=== PATIENT | male | born 1965 | race Caucasian/White ===

== ENCOUNTER 2020-06-25 15:40 | Observation (INO) ==
[2020-06-25] MEDS ORDERED: PIPERACILL/TAZOBAC CONSULT ACTIVE PRN ×2 (15:57→21:13)
[2020-06-25] MEDS ORDERED: VANCOMYCIN CONSULT ACTIVE PRN ×2 (15:57→21:13)
[2020-06-25] MEDS ORDERED: PIPERACILLIN/TAZOBACTAM 4.5 GM/120 ML BAG IV ONE (15:57)
[2020-06-25] MEDS ORDERED: VANCOMYCIN HCL 2,750 MG in SODIUM CHLORIDE 0.9% 500 ML IV ONE (15:57)
[2020-06-25] MEDS ORDERED: SODIUM CHLORIDE 0.9% 1000ML 1,000 ML IV SCH (16:00)
--- NOTE | 2020-06-25 16:02 | Emergency Department Note ---
Impression & Plan Cellulitis of left foot, Diabetes mellitus, Deformity of foot, KATALINA (acute kidney injury) ED Provider Note NAME: DENISSE ANDREWS AGE: 55 SEX: M : 1965 ARRIVES VIA: Walk-In INFORMANT: [Patient] ED PROVIDER(S): [Aramis Garnett MD] CHIEF COMPLAINT: Foot pain HISTORY OF PRESENT ILLNESS: The patient is a 55-year-old male who is diabetic. He has had a partial amputation of the left foot because of infection. The patient states that over the weekend, 5 days or so ago, he felt awful. He was chilled and his blood sugar was high. He was able to get his sugar under control and started to feel somewhat better. Over the last few days he has noticed that his left foot is more painful and he has noticed some redness and then he noticed a foul odor. Patient is on his feet quite a bit and as the day goes on, the pain gets worse, right now, lying still, the pain is minimal. The patient has had some chills, no fever. No cough or cold or congestion. No urinary complaints. No Covid exposures. He had 1 bout of vomiting over the weekend, none since. The patient is concerned he has infection again in his foot. REVIEW OF SYSTEMS: See HPI for pertinent positives and negatives. A total of ten systems were reviewed and were otherwise negative. PMHx/PSHx: See Below SOCIAL HISTORY: See Below. PHYSICAL EXAM: GENERAL: Patient is in no acute distress. HEENT: No acute trauma, normocephalic atraumatic, mucous membranes moist, no nasal congestion, no scleral icterus. NECK: No stridor, no adenopathy, no meningismus, trachea is midline. LUNGS: Clear to auscultation bilaterally, no wheeze, no rhonchi, breath sounds equal. HEART: Without murmurs gallops or rubs, regular rate and rhythm. ABDOMEN: Soft, nontender, bowel sounds positive, no hernias, no peritonitis. EXTREMITIES: No cyanosis. The patient does have left lower extremity edema. There is an amputation to the lateral aspect of his distal left foot. This has healed well. The patient has an open area to the underside of his medial left foot. There is a foul odor noted. There is some surrounding erythema. Some warmth is present at the area of erythema. A culture was obtained NEUROLOGIC: Oriented x 3, no acute motor or sensory deficits, no focal weakness. SKIN: No rash, no jaundice, no diaphoresis. DIFFERENTIAL DIAGNOSIS: Sepsis, UTI, pneumonia, osteomyelitis, cellulitis, gangrene, metabolic, electrolyte abnormalities, cardiac sources, intracerebral event, toxicologic, neurologic, as well as other pathologies. EMERGENCY DEPARTMENT COURSE/PROCEDURES: ECG: Indication was possible sepsis. The ECG shows a sinus rhythm with some PVCs. There is some baseline artifact. The rate is 71. The QTc is 469. There is no ST elevation. Continuous Cardiac Monitoring: An order was placed for continuous cardiac monitoring. The monitor shows a rate of 65 with sinus rhythm with some PVCs. MEDICAL DECISION MAKING: There is no leukocytosis. There is a mild anemia but this is baseline looking back at previous testing. There was a normal platelet count. No worrisome co agulopathy. There was some acute kidney injury with a creatinine of 1.47. Lactic acid level was not elevated making sepsis less likely. No concerning liver enzyme elevation. Procalcitonin level was not elevated. Covid testing returned negative. Chest x-ray did not show pneumonia or CHF. Left foot CT did show evidence for cellulitis, there was a Charcot neuropathy noted. There was no osteomyelitis. ECG showed a sinus rhythm with some PVCs, no acute ischemia. The patient presents with chills, left foot pain and redness. The left foot has a foul odor. Few days ago, he had a high blood sugar and an episode of vomiting. The patient has a left foot cellulitis. He is diabetic. There is an ulcer to the plantar aspect of the left foot and there is a very foul odor from this lesion. A culture was obtained and is pending. The patient is in need of a hospital stay. He did receive IV Zosyn and IV vancomycin. He was given IV saline. The patient is aware of his findings, he understands the need for hospital admission. I did speak with the patient and case management. The on-call hospitalist has been consulted. Past Med/Surg History Medical History History of anesthesia reaction difficulty waking Near sighted Sleep apnea had sx, no issues now Toe osteomyelitis, left Surgical History H/O sinus surgery History of amputation of toe History of tonsillectomy and adenoidectomy S/P unilateral inguinal hernia repair Family History Aunt Breast cancer Grandfather Diabetes CHF (congestive heart failure) Hyperglycemia Stroke Grandmother Lung cancer Uterine cancer Grandfather (Paternal) Family history of diabetes mellitus Other No family history of adverse response to anesthesia Social History Smoking Status: Never smoker Second Hand Exposure: Yes (father smoked); Hx Alcohol Use: Yes Alcohol type: beer Hx Substance Use: No Preferred Language: Russian Communication Ability: Effective Positive Printer Operator Required: No Beliefs That Will Affect Care: None Current Living Situation: Alone Feels Safe at Home: Yes Assistive Devices: Glasses Allergies Allergies Allergy/AdvReac Type Severity Reaction Status Date / Time No Known Allergies Allergy Unknown Verified 08/05/19 07:16 Home Meds Home Medications Medication Instructions Recorded Confirmed cyanocobalamin (vitamin B-12) 500 500 mcg PO QAM tab 01/22/19 08/05/19 mcg tablet Previous Rx's Medication Instructions Recorded pen needle, diabetic 31 gauge x #200 ea 01/24/1911/01" metformin 500 mg tablet 500 mg PO BID #180 tab 07/15/19 insulin lispro 100 unit/mL 5 units SQ .COMPLEX #15 ml 08/17/19 subcutaneous pen lisinopril 5 mg tablet 5 mg PO DAILY #90 tab 09/23/19 simvastatin 20 mg tablet 20 mg PO DAILY #90 tab 09/23/19 torsemide 20 mg tablet See Rx Instructions PO .COMPLEX 03/03/20 #90 tab blood sugar diagnostic See Rx Instructions .ROUTE 04/01/20 .COMPLEX #100 strip insulin glargine 100 unit/mL (3 30 unit SQ QAM #15 ml 06/04/20 mL) subcutaneous pen Results & Data (ED) Vital Signs Vital Signs - 24 hr 06/25/20 15:41 06/25/20 16:35 06/25/20 16:39 Temperature 36.5 C Temperature Source Skin Pulse Rate 81 Pulse Rate [Apical] 65 Respiratory Rate 19 18 Blood Pressure 138/75 Blood Pressure [Left Arm] 146/87 H Blood Pressure Mean 96 Blood Pressure Mean [Left Arm] 106 Pulse Oximetry 98 98 97 Oxygen Delivery Method Room Air Room Air Room Air Sepsis Recent Fever Within 48 Hours No Sepsis New/Unexplained Change in Mental Status N/A Sepsis Action Taken by Nursing No Action Required Home Medications Current Medication List: was personally reviewed by me Laboratory Data Attestation: I reviewed the patient's lab results. Result diagrams: 06/25/20 16:20 06/25/20 16:20 Lab Results 06/25/20 06/25/20 06/25/20 Range/Units 16:20 16:20 16:20 WBC 8.80 (4.8-10.8) K/uL RBC 4.15 L (4.7-6.1) M/uL Hgb 12.7 L (14.0-18.0) g/dL Hct 36.4 L (42-52) % MCV 87.7 (80-100) fL MCH 30.6 (25-34) pg MCHC 34.9 (32-36) g/dL RDW Std Deviation 41.6 (36.4-46.3) fL RDW Coeff of Sil 12.9 (11.5-14.5) % Plt Count 158 (130-400) K/uL MPV 12.6 H (7.4-10.4) fL Immature Gran % (Auto) 0.2 % Neut % (Auto) 67.1 % Lymph % (Auto) 23.9 % [place] % (Auto) 6.5 % Eos % (Auto) 1.7 % Baso % (Auto) 0.6 % Neut # (Auto) 5.91 (1.4-6.5) K/uL Lymph # (Auto) 2.10 (1.2-3.4) K/uL [place] # (Auto) 0.57 (0.11-0.59) K/uL Eos # (Auto) 0.15 (0-0.5) K/uL Baso # (Auto) 0.05 (0-0.2) K/uL Immature Gran # (Auto) 0.02 (0.00-0.02) K/uL PT 12.5 H (9.0-12.0) Seconds INR 1.2 H (0.9-1.1) APTT 26.8 (21.0-31.0) Seconds PTT Ratio 1.0 Sodium 137 (136-145) mmol/L Potassium 3.9 (3.5-5.1) mmol/L Chloride 105 (98-107) mmol/L Carbon Dioxide 26 (21-32) mmol/L Anion Gap 6.0 (3-11) BUN 30 H (7-18) mg/dl Creatinine 1.47 H (0.6-1.4) mg/dl Est Cr Clr Drug Dosing 82.2 ml/min Est GFR ( Amer) 62.2 Est GFR (Non-Af Amer) 53.7 BUN/Creatinine Ratio 20.5 H (10-20) Glucose 191 H (70-99) mg/dl Lactate (0.4-2.0) mmol/L Calcium 8.9 (8.5-10.1) mg/dl Magnesium 2.1 (1.8-2.4) mg/dl Total Bilirubin 0.8 (0.2-1) mg/dl AST 12 L (15-37) U/L ALT 31 (12-78) U/L Alkaline Phosphatase 102 (45-117) U/L Total Protein 7.2 (6.4-8.2) gm/dl Albumin 3.6 (3.4-5.0) gm/dl Globulin 3.6 (2.5-4.0) gm/dl Albumin/Globulin Ratio 1.0 (0.9-2) Procalcitonin (0-0.5) ng/ml SARS-CoV-2 Ag (Rapid) (Negative) 06/25/20 06/25/20 06/25/20 Range/Units 16:20 16:20 Unknown WBC (4.8-10.8) K/uL RBC (4.7-6.1) M/uL Hgb (14.0-18.0) g/dL Hct (42-52) % MCV (80-100) fL MCH (25-34) pg MCHC (32-36) g/dL RDW Std Deviation (36.4-46.3) fL RDW Coeff of Sil (11.5-14.5) % Plt Count (130-400) K/uL MPV (7.4-10.4) fL Immature Gran % (Auto) % Neut % (Auto) % Lymph % (Auto) % [place] % (Auto) % Eos % (Auto) % Baso % (Auto) % Neut # (Auto) (1.4-6.5) K/uL Lymph # (Auto) (1.2-3.4) K/uL [place] # (Auto) (0.11-0.59) K/uL Eos # (Auto) (0-0.5) K/uL Baso # (Auto) (0-0.2) K/uL Immature Gran # (Auto) (0.00-0.02) K/uL PT (9.0-12.0) Seconds INR (0.9-1.1) APTT (21.0-31.0) Seconds PTT Ratio Sodium (136-145) mmol/L Potassium (3.5-5.1) mmol/L Chloride (98-107) mmol/L Carbon Dioxide (21-32) mmol/L Anion Gap (3-11) BUN (7-18) mg/dl Creatinine (0.6-1.4) mg/dl Est Cr Clr Drug Dosing ml/min Est GFR ( Amer) Est GFR (Non-Af Amer) BUN/Creatinine Ratio (10-20) Glucose (70-99) mg/dl Lactate 1.1 (0.4-2.0) mmol/L Calcium (8.5-10.1) mg/dl Magnesium (1.8-2.4) mg/dl Total Bilirubin (0.2-1) mg/dl AST (15-37) U/L ALT (12-78) U/L Alkaline Phosphatase (45-117) U/L Total Protein (6.4-8.2) gm/dl Albumin (3.4-5.0) gm/dl Globulin (2.5-4.0) gm/dl Albumin/Globulin Ratio (0.9-2) Procalcitonin 0.14 (0-0.5) ng/ml SARS-CoV-2 Ag (Rapid) Negative (Negative) Administered Medications Vancomycin HCl 2,750 mg/ (Sodium Chloride) 555 mls @ 200 mls/hr IV NOW ONE Stop: 06/25/20 18:46 Last Admin: 06/25/20 17:23 Dose: 200 mls/hr Documented by: [id number] Discontinued Medications Sodium Chloride (Nss 1000ml) 1,000 mls @ 999 mls/hr IV .Q1H1M RADHA Stop: 06/25/20 17:00 Last Admin: 06/25/20 16:34 Dose: 999 mls/hr Documented by: [id number] Piperacillin Sod/Tazobactam Sod (Zosyn) 4.5 gm in 120 mls @ 240 mls/hr IV NOW ONE Stop: 06/25/20 16:26 Last Admin: 06/25/20 16:34 Dose: 240 mls/hr Documented by: [id number] Imaging Data Radiologist's Impression: XR chest 1V portable CLINICAL HISTORY: Stroke Like Symptoms COMPARISON STUDY: 05/12/2020 FINDINGS: The cardiac and mediastinal contours remain stable. There is no failure. There is no focal pulmonary consolidation. There are no pleural effusions. There is a reverse total left shoulder arthroplasty. There is a chronic right AC joint separation[ IMPRESSION: No active disease in the chest. CT foot LT wo con HISTORY: 55 years-old Male poss osteo chronic left foot pain with neuropathy. COMPARISON: Left foot radiographs 01/22/2013 TECHNIQUE: Multiple axial CT images of the left foot were obtained without the use of IV contrast. A dose lowering technique was used consistent with the principals of ALARA. FINDINGS: There is moderate diffuse subcutaneous edema of the ankle and foot. The mineralized appearance of the bones. Interval development of diffuse severe bony fragmentation/erosion of the midfoot with areas of mild associated subluxation. Moderate spurring of the calcaneus. Mild tibiotalar osteoarthritis. Additionally, there is severe joint space narrowing of the second MTP joint with corticated bone fragments and flattening of the second metatarsal head. Interval postoperative changes of resection of the fifth metatarsal head and fifth digit phalanges. No drainable fluid collection. The ligaments and tendons are not well evaluated by CT technique. Varicosities of the medial lower leg. There is diffuse atrophy of the intrinsic musculature. Soft tissue ulcer of the forefoot is noted within the medial midfoot. No definite evidence of acute osteomyelitis deep to the ulcer. IMPRESSION: 1. Interval development of bony fragmentation/erosions of the forefoot with subluxations suggestive of Charcot neuropathy. 2. Diffuse subcutaneous edema suggests cellulitis. There is a soft tissue ulcer of the medial forefoot. No abscess or evidence of acute osteomyelitis deep to the ulcer. 3. Interval amputation of the fifth metatarsal head and fifth digit phalanges. 4. 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 Discharge Plan Visit Data Chief Complaint: Foot Injury/Pain Stated Complaint: LEFT FOOT PAIN ED Provider: Aramis Garnett Discharge Problem: Cellulitis of left foot, Diabetes mellitus, Deformity of foot, KATALINA (acute kidney injury) Patient Disposition: Admitted As Inpatient Condition: Good Forms Stand Alone Forms: [facility] Prescriptions Prescriptions: No Action metformin 500 mg tablet 500 mg PO BID Qty: 180 RF: 3 insulin lispro [Humalog KwikPen Insulin] 100 unit/mL insulin pen 5 units SQ .COMPLEX Qty: 15 RF: 5 simvastatin 20 mg tablet 20 mg PO DAILY Qty: 90 RF: 3 lisinopril 5 mg tablet 5 mg PO DAILY Qty: 90 RF: 3 torsemide 20 mg tablet See Rx Instructions PO .COMPLEX Qty: 90 RF: 2 OneTouch Verio test strips Strip See Rx Instructions .ROUTE .COMPLEX Qty: 100 RF: 5 Lantus Solostar U-100 Insulin 100 unit/mL (3 mL) insulin pen 30 unit SQ QAM Qty: 15 RF: 3 cyanocobalamin (vitamin B-12) 500 mcg tablet 500 mcg PO QAM RF: 0 (DME) pen needle, diabetic [Sure-Fine Pen [place]] 31 gauge x 5/16" needle See Dose Instructions .ROUTE .MEDSUPPLY Qty: 200 RF: 5 Referrals Referrals: Rachel Calderón CRNP [Primary Care Provider] - Discharge Problem: Diabetes mellitus Qualifiers: Diabetes mellitus type: type 2 Diabetes mellitus intermodal dispatcher insulin use: with usp use Diabetes mellitus complication status: with skin complications Diabetes mellitus complication detail: with foot ulcer Qualified Code(s): E11.621 - Type 2 diabetes mellitus with foot ulcer Deformity of foot Qualifiers: Laterality: left Qualified Code(s): M21.962 - Unspecified acquired deformity of left lower leg
--- NOTE | 2020-06-25 16:32 | XRay Report ---
SINGLE VIEW CHEST CLINICAL HISTORY: Sepsis. FINDINGS: An AP, portable, upright chest radiograph is obtained. No prior studies are available for c omparison at the time of dictation. The heart is top normal for projection noting atherosclerotic ca lcification of the thoracic aorta. There is mild bibasilar atelectasis. No airspace consolidation or large pleural effusion is identified. No pneumothorax is seen. The bony thorax is grossly intact. IMPRESSION: No active disease in the chest. ACT 112: Negative or not required by law. Electronically signed by: Aramis Conklin M.D. 06/25/2020 4:30 PM
[2020-06-25 16:37] LABS: Basophils # (auto) 0.05 K/uL (0-0.2); Basophils % (auto) 0.6 %; Eosinophils # (auto) 0.15 K/uL (0-0.5); Eosinophils % (auto) 1.7 %; Hematocrit (blood only) 36.4 % (42-52); Hemoglobin 12.7 g/dL (14.0-18.0); Immature Granulocytes # (auto) 0.02 K/uL (0.00-0.02); Immature Granulocytes % (auto) 0.2 %; Lymphocytes % (auto) 23.9 %; Mean Corpuscular Hemoglobin 30.6 pg (25-34); Mean Corpuscular Hgb Conc 34.9 g/dL (32-36); Mean Corpuscular Volume 87.7 fL (80-100); Mean Platelet Volume 12.6 fL (7.4-10.4); Monocytes # (auto) 0.57 K/uL (0.11-0.59); Monocytes % (auto) 6.5 %; Neutrophils # (auto) 5.91 K/uL (1.4-6.5); Neutrophils % (auto) 67.1 %; Platelet Count 158 K/uL (130-400); RDW Coefficient of Variation 12.9 % (11.5-14.5); RDW Standard Deviation 41.6 fL (36.4-46.3); Red Blood Count 4.15 M/uL (4.7-6.1)
[2020-06-25 17:00] LABS: INR 1.2 (0.9-1.1); Partial Thromboplastin Time 26.8 Seconds (21.0-31.0); Prothrombin Time 12.5 Seconds (9.0-12.0)
[2020-06-25 17:12] LABS: Albumin Level 3.6 gm/dl (3.4-5.0); BUN Creatinine Ratio 20.5 (10-20); Calcium 8.9 mg/dl (8.5-10.1); Creatinine Clr Calc Pharmacy 82.2 ml/min; Est GFR (African American) 62.2; Est GFR (Non-African American) 53.7; Magnesium 2.1 mg/dl (1.8-2.4); Potassium 3.9 mmol/L (3.5-5.1)
[2020-06-25 17:15] LABS: Bilirubin,Total 0.8 mg/dl (0.2-1); Globulin 3.6 gm/dl (2.5-4.0); Total Protein 7.2 gm/dl (6.4-8.2)
--- NOTE | 2020-06-25 17:19 | CT Scan Report ---
CT foot LT wo con HISTORY: 55 years-old Male poss osteo chronic left foot pain with neuropathy. COMPARISON: Left foot radiographs 01/22/2013 TECHNIQUE: Multiple axial CT images of the left foot were obtained without the use of IV contrast. A dose lowering technique was used consistent with the principals of LULY. FINDINGS: There is moderate diffuse subcutaneous edema of the ankle and foot. The mineralized appearance of the bones. Interval development of diffuse severe bony fragmentation/erosion of the midfoot with areas o f mild associated subluxation. Moderate spurring of the calcaneus. Mild tibiotalar osteoarthritis. Ad ditionally, there is severe joint space narrowing of the second MTP joint with corticated bone fragme nts and flattening of the second metatarsal head. Interval postoperative changes of resection of the fifth metatarsal head and fifth digit phalanges. No drainable fluid collection. The ligaments and ten dons are not well evaluated by CT technique. Varicosities of the medial lower leg. There is diffuse a trophy of the intrinsic musculature. Soft tissue ulcer of the forefoot is noted within the medial mid foot. No definite evidence of acute osteomyelitis deep to the ulcer. IMPRESSION: 1. Interval development of bony fragmentation/erosions of the forefoot with subluxations suggestive o f Charcot neuropathy. 2. Diffuse subcutaneous edema suggests cellulitis. There is a soft tissue ulcer of the medial forefoo t. No abscess or evidence of acute osteomyelitis deep to the ulcer. 3. Interval amputation of the fifth metatarsal head and fifth digit phalanges. 4. Severe joint space narrowing of the second MTP joint with subchondral collapse/osteonecrosis of th e second metatarsal head, also new from 2013. ACT 112: Negative or not required by law. The above report was generated using voice recognition software. It may contain grammatical, syntax o r spelling errors. Electronically signed by: Tien Aparicio M.D. 06/25/2020 5:18 PM
--- NOTE | 2020-06-25 19:30 | History & Physical Report ---
Date of Service June 25, 2020 Assessment & Plan (1) Cellulitis of left foot: Patient is a 55 year old male with PMHx DM2, HLD, HTN, s/p partial L foot amputation that presented initially with concerns of 3-4 days of foul smelling odor, pain, redness, and drainage from his L foot. Cellulitis of L foot -Wound and Blood cultures taken in ED, pending -Started on IV Zosyn and Vanco, will continue until cultures return -Podiatry consult as patient will likely need further care upon discharge for his foot, has never seen a stone rigger -Consider Orthotics while inpatient for discharge Chronic Venous Stasis dermatitis of LLE -Recommended patient continue wearing compression stockings after infection relatively cleared -Has worn in past, but more recently since amputation has had difficulties putting them on -?use of assistance device for donning of compression stockings KATALINA -Creatinine slightly elevated at 1.47, base 1 -Will hold Lisinopril and Torsemide at this time -BP acceptable DM2 -Continue home Lantus -SSI -AM HgbA1c ordered HLD -Continue home Simvastatin HTN -Holding Lisinopril and Torsemide as above -BP acceptable at this time Dispo: Med/Surg FEN: DM2 diet DVT: SCDs Code: Full (2) Diabetes mellitus: (3) KATALINA (acute kidney injury): (4) Hyperlipidemia: (5) Hypertension: (6) Venous stasis dermatitis of left lower extremity: History of Present Illness Chief Complaint: L foot infection Primary Care Provider: AILEEN Ibrahim Patient is a 55 year old male with PMHx DM2, HLD, HTN, s/p partial L foot amputation that presented initially with concerns of 3-4 days of foul smelling odor, pain, redness, and drainage from his L foot. Patient notes that roughly 5 days ago he had significant chills and had noted that his sugars were uncontrolled. He states that roughly 3-4 days ago his L foot started to smell and became more red and tender to touch. He states that his foot has been hurting for "at least a month" now, but that the past few days had worsened and he was concerned for infection. Notes that his foot pain increases to an 8/10 at the end of a day, but currently is a 2/10 at rest. He states that the over all feeling of his feet is poor and that feeling doesn't improve until above the mid-rosales. Currently denies any fever, chills, SOB, chest pain, abdominal pain, nausea, vomiting, diarrhea. Med Hx: DM2, HLD, HTN Surg Hx: L foot partial amputation, L inguinal hernia repair, Adenoidectomy Social Hx: Does note use tobacco, alcohol, drugs Fam Hx: Grandfather DM, CHF, Stroke; Grandmother Lung and uterine cx Allergies Allergy/AdvReac Type Severity Reaction Status Date / Time No Known Allergies Allergy Unknown Verified 06/25/20 17:52 Home Medications Medication Instructions Recorded Confirmed Type cyanocobalamin (vitamin B-12) 500 500 mcg PO QAM tab 01/22/19 06/25/20 History mcg tablet pen needle, diabetic 31 gauge x #200 ea 01/24/19 06/25/20 Rx 5/16" metformin 500 mg tablet 500 mg PO BID #180 tab 07/15/19 06/25/20 Rx insulin lispro 100 unit/mL 5 units SQ .COMPLEX #15 ml 08/17/19 06/25/20 Rx subcutaneous pen lisinopril 5 mg tablet 5 mg PO DAILY #90 tab 09/23/19 06/25/20 Rx insulin glargine 100 unit/mL (3 30 unit SQ QAM #15 ml 06/04/20 06/25/20 Rx mL) subcutaneous pen simvastatin 20 mg PO QPM 06/25/20 06/25/20 History torsemide 20 mg PO DAILY 06/25/20 06/25/20 History Past Med/Surg History Medical History History of anesthesia reaction difficulty waking Near sighted Sleep apnea had sx, no issues now Toe osteomyelitis, left Surgical History H/O sinus surgery History of amputation of toe History of tonsillectomy and adenoidectomy S/P unilateral inguinal hernia repair Family History Aunt Breast cancer Grandfather Diabetes CHF (congestive heart failure) Hyperglycemia Stroke Grandmother Lung cancer Uterine cancer Grandfather (Paternal) Family history of diabetes mellitus Other No family history of adverse response to anesthesia Social History Smoking Status: Never smoker Second Hand Exposure: Yes (father smoked); Hx Alcohol Use: No Hx Substance Use: No Preferred Language: [place] Konger Communication Ability: Effective E Business Specialist Required: No Beliefs That Will Affect Care: None Current Living Situation: Alone Other Information That Helps Us Care for You: No Feels Safe at Home: Yes Safety Concerns: Feels Safe At This Time Assistive Devices: None Review of Systems Review of Systems: All systems reviewed & are unremarkable except as noted in Subjective Physical Exam Constitutional: well developed, well nourished and cooperative; no acute distress Eyes: PERRL, conjunctivae normal, anicteric sclerae ENMT: external ear and nose normal, oropharynx normal Neck: trachea midline, no thyromegaly Respiratory: normal respiratory effort; no cough Auscultation: lungs clear to auscultation bilaterally; no diminished lung sounds, no crackles, no rales an d no wheezes Cardiovascular: Rate/Rhythm: regular rate and regular rhythm Heart Sounds: normal S1 and normal S2; no murmur and no cardiac rub Vessels: no JVD Extremities: no calf tenderness and no edema Gastrointestinal (Abdomen): Inspection/Auscultation: abdomen normal to inspection and normal bowel sounds; abdomen not distended Percussion/Palpa tion: abdomen soft; abdomen nontender, no guarding and abdomen not rigid Musculoskeletal: Head/Neck/Chest: normocephalic and head atraumatic L LE with appreciated amputation of 5th digit. Venous stasis changes on LLE to below the knee. Erythema and warmth of the plantar aspect of the foot with ulcer without obvious discharge in the mid-foot. Skin: no rashes, warm and dry Neurologic: PERRL, EOMI, accommodation nl, no face palsy, no dysarthria Psychiatric: A+Ox3, euthymic affect Results & Data Results & Data ([facility]) Vital Signs (Past 12 Hours) Vital Signs Temp Pulse Pulse Resp BP BP Pulse Ox 06/25/20 18:12 63 20 134/76 99 06/25/20 16:39 65 18 146/87 H 97 06/25/20 16:35 98 06/25/20 15:41 36.5 C 81 19 138/75 98 Supervising Physician Co-Signing Physician Notes I personally saw and examined the patient. I verified all carrillo points and agree with Resident Physician Dr Alamo with the following exceptions and/or additions: 55 year old male with neuropathic pressure ulcer on plantar aspect of left foot. No fevers or chills. Progressive callus on medial aspect of plantar foot since his partial foot amputation 2 years ago. 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 1 day of drainage from this callus therefore decided to come to the ER. He does not routinely see a stone rigger. O/E nonseptic appearing, HS 1+2, no murmurs, Chest CTAB, Left leg edema 2+ to knee > right (pt reports chronic), Unstageable ulcer on medial plantar aspect of left foot with surrounding cellulitis warmth and swelling. A/P Cellulitis with unstageable diabetic/neuropathic ulcer - Continue vanc/zosyn pending wound and blood cultures. Consult podiatry. KATALINA - agree with holding diuretic and ACEi as above. Likely can restart ACEi if Cr improving in AM. 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
[2020-06-25] MEDS ORDERED: GLUCAGON FOR INJ 1 MG VIAL SQ PRN (21:13)
[2020-06-25] MEDS ORDERED: VANCOMYCIN HCL 2,000 MG in SODIUM CHLORIDE 0.9% 500 ML IV SCH (21:13)
[2020-06-25] MEDS ORDERED: GLUCOSE 40% GEL 15 GM TUBE PO PRN (21:13)
[2020-06-25] MEDS ORDERED: DEXTROSE 50% 50 ML SYRINGE IV PRN (21:13)
[2020-06-25] MEDS ORDERED: CARBOHYDRATES FOR HYPOGLYCEMIA PO PRN (21:13)
[2020-06-25] MEDS ORDERED: GLUCOSE 10 TABS/TUBE PO PRN (21:13)
[2020-06-25] MEDS: SIMVASTATIN 20 MG TAB PO SCH (21:48)
[2020-06-25] MEDS: INSULIN ASPART 100 UNITS/ML 3 ML PEN SC SCH (21:50)
[2020-06-25] MEDS: PIPERACILLIN/TAZOBACTAM 4.5 GM in DEXTROSE 5% 100 ML IV SCH (22:07)
[2020-06-25 22:44] LABS: C Reactive Protein 1.52 mg/dl (0-0.29)
[2020-06-26 00:50] LABS: Appearance Urine Cloudy (Clear); Bacteria Urine Automated Negative (Negative); Bilirubin Urine Negative (Negative); Blood Urine Negative (Negative); Cast Urine Automated 0 /lpf (0-5); Color Urine Yellow; Epithelial Cell Urine Auto 0-5 /lpf (0-5); Glucose Urine UA Trace (Negative); Ketones Urine Negative (Negative); Leukocyte Esterase Urine Negative (Negative); Nitrite Urine Negative (Negative); Protein Urine Negative (Negative); RBC Urine Automated 0-4 /hpf (0-4); Specific Gravity Urine 1.016 (1.000-1.030); Urobilinogen Urine Negative (Negative); WBC Urine Automated 0 /hpf (0-5)
[2020-06-26] MEDS: PIPERACILLIN/TAZOBACTAM 4.5 GM in DEXTROSE 5% 100 ML IV SCH ×3 (05:38→22:35)
[2020-06-26] MEDS ORDERED: VANCOMYCIN HCL 1,500 MG in SODIUM CHLORIDE 0.9% 500 ML IV SCH (06:00)
[2020-06-26 06:18] LABS: Basophils # (auto) 0.04 K/uL (0-0.2); Basophils % (auto) 0.6 %; Eosinophils # (auto) 0.17 K/uL (0-0.5); Eosinophils % (auto) 2.5 %; Hematocrit (blood only) 33.9 % (42-52); Hemoglobin 11.7 g/dL (14.0-18.0); Immature Granulocytes # (auto) 0.01 K/uL (0.00-0.02); Immature Granulocytes % (auto) 0.1 %; Lymphocytes % (auto) 26.7 %; Mean Corpuscular Hemoglobin 30.5 pg (25-34); Mean Corpuscular Hgb Conc 34.5 g/dL (32-36); Mean Corpuscular Volume 88.3 fL (80-100); Mean Platelet Volume 12.3 fL (7.4-10.4); Monocytes # (auto) 0.42 K/uL (0.11-0.59); Monocytes % (auto) 6.2 %; Neutrophils # (auto) 4.31 K/uL (1.4-6.5); Neutrophils % (auto) 63.9 %; Platelet Count 147 K/uL (130-400); Red Blood Count 3.84 M/uL (4.7-6.1); White Blood Count 6.75 K/uL (4.8-10.8)
--- NOTE | 2020-06-26 06:37 | XRay Report ---
XR foot LT min 3V routine HISTORY: 55 years-old Male left foot infection with diabetes diabetes. Chronic left foot pain COMPARISON: CT left foot of same day, left foot radiographs 01/23/2013 TECHNIQUE: 3 views of the left foot FINDINGS: Pes planus. Destruction of the midfoot is noted with sclerosis, bony fragmentation and mild multi art iculation subluxation. Interval partial amputation of the fifth digit at the level of the distal diap hyseal fifth metatarsal. There is cortical thickening throughout the second metatarsal. There is flat tening of the second metatarsal head with severe joint space narrowing at the second MTP joint. Mild diffuse soft tissue swelling. No acute fractures or definitive evidence of acute osteomyelitis. IMPRESSION: 1. Diffuse soft tissue prominence without acute fracture or definite evidence of acute osteomyelitis. 2. Charcot neuropathy. 3. Partial amputation of the fifth digit. 4. 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 ACT 112: Negative or not required by law. The above report was generated using voice recognition software. It may contain grammatical, syntax o r spelling errors. Electronically signed by: Tien Aparicio M.D. 06/26/2020 6:35 AM
[2020-06-26 06:53] LABS: BUN Creatinine Ratio 19.6 (10-20); Calcium 8.9 mg/dl (8.5-10.1); Creatinine Clr Calc Pharmacy 107.2 ml/min; Est GFR (African American) 85.5; Est GFR (Non-African American) 73.8; Potassium 4.4 mmol/L (3.5-5.1)
[2020-06-26 07:57] LABS: Estimated Average Glucose 169 mg/dl; Hemoglobin A1C 7.5 % (4.5-5.6)
[2020-06-26] MEDS: INSULIN ASPART 100 UNITS/ML 3 ML PEN SC SCH ×4 (08:55→21:44)
[2020-06-26] MEDS: INSULIN GLARGINE SOLOSTAR 100 UNITS/ML 3 ML PEN SQ SCH (08:55)
--- NOTE | 2020-06-26 09:01 | Podiatry Consultation ---
Date of Consultation June 26, 2020 Assessment & Plan (1) Cellulitis of left foot: Patient should f/u with me outpatient in the office and with the Diabetic foot clinic for custom diabetic shoes or PICAYUNE walker (2) Diabetes mellitus: Diabetes mellitus complication detail: with foot ulcer Diabetes mellitus complication status: with skin complications Diabetes mellitus long te rm insulin use: with prison use Diabetes mellitus type: type 2 Qualified Code(s): E11.621 - Type 2 diabetes mellitus with foot ulcer; L97.509 - Non- pressure chronic ulcer of other part of unspecified foot with unspecified severity; Z79.4 - care home (current) use of insulin (3) KATALINA (acute kidney injury): (4) Hyperlipidemia: (5) Hypertension: (6) Venous stasis dermatitis of left lower extremity: History of Present Illness Attending Physician: Maico Hoffman MD Patient is a very pleasant 55 year old male seen at bedside this morning for a consultation for his left foot. Patient has a history of diabetes, venous insufficiency, diabetic neuropathy and Charcot neuropathy of his left foot, underwent a left foot 5th toe amputation and left fifth metatarsal partial ray resection by another feed house supervisor in the [facility] area about 2 years ago. patient stated he was to have diabetic shoes made and never did, he is very interested in following up on the shoes. Patient has a well healed left foot incision along the dorsal lateral aspect of the left foot and leg. There is no opening or wound present, patient has a rocker bottom foot consistent with Charcot, there is a very small abrasion on the left foot, medial aspect of the plantar foot, this should be covered with Allevyn foam for protection. There is no opening to measure, there is some swelling of the left lower extremity/foot but this is likely consistent with his venous issues, the swelling should be controlled with compression hose if patient can tolerate this. Additionally, I discussed with patient the concept of Charcot neuropathy, we discussed that because he retains good blood flow to his left foot, and has neuropathy he is breaking his foot down to form the rocker bottom foot type he now has, I recommend for patient to be seen on the outpatient setting by the Diabetic foot clinic for custom diabetic shoes for his Charcot foot Patient otherwise is stable - no WBC, it seems that swelling of his legs is an issue that needs to be addressed with compression, additionally with Charcot feet there are 3 phases roughly that the Charcot foot will progress through that if not stabilized with a shoe or a PICAYUNE walker will worsen the foot - the 3 phases are an active phase of Charcot when the foot is red/hot/swollen the foot will then progress to a rebuilding phase then to a stable coalescence phase - it is possible 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 thank you for this consult - I will continue to follow this patient once he is d/c in my office Allergies Allergy/AdvReac Type Severity Reaction Status Date / Time No Known Allergies Allergy Unknown Verified 06/25/20 17:52 Home Medications Medication Instructions Recorded Confirmed Type cyanocobalamin (vitamin B-12) 500 500 mcg PO QAM tab 01/22/19 06/25/20 History mcg tablet pen needle, diabetic 31 gauge x #200 ea 01/24/19 06/25/20 Rx 5/16" metformin 500 mg tablet 500 mg PO BID #180 tab 07/15/19 06/25/20 Rx insulin lispro 100 unit/mL 5 units SQ .COMPLEX #15 ml 08/17/19 06/25/20 Rx subcutaneous pen lisinopril 5 mg tablet 5 mg PO DAILY #90 tab 09/23/19 06/25/20 Rx insulin glargine 100 unit/mL (3 30 unit SQ QAM #15 ml 06/04/20 06/25/20 Rx mL) subcutaneous pen simvastatin 20 mg PO QPM 06/25/20 06/25/20 History torsemide 20 mg PO DAILY 06/25/20 06/25/20 History Patient History Medical History History of anesthesia reaction difficulty waking Near sighted Sleep apnea had sx, no issues now Toe osteomyelitis, left Surgical History H/O sinus surgery History of amputation of toe History of tonsillectomy and adenoidectomy S/P unilateral inguinal hernia repair Family History Aunt Breast cancer Grandfather Diabetes CHF (congestive heart failure) Hyperglycemia Stroke Grandmother Lung cancer Uterine cancer Grandfather (Paternal) Family history of diabetes mellitus Other No family history of adverse response to anesthesia Social History Smoking Status: Never smoker Second Hand Exposure: Yes (father smoked); Hx Alcohol Use: No Hx Substance Use: No Preferred Language: [place] Islander Communication Ability: Effective Polysomnographic Technologist Required: No Beliefs That Will Affect Care: None Current Living Situation: Alone Other Information That Helps Us Care for You: No Feels Safe at Home: Yes Safety Concerns: Feels Safe At This Time Assistive Devices: None Physical Exam Skin: left foot with rocker bottom appearance, s/p left 5th toe and 5th partial ray resection area is well healed, there is prominent bone at the 1st TMT joint and increased pressure of the foot plantarly. No open or active drainaing ulcers, foto is consisten with diabetic charcot foot, with a history of venous insufficenicy swelling Results & Data ([facility]) Vital Signs (Past 12 Hours) Vital Signs Temp Pulse Pulse Resp BP Pulse Ox 06/26/20 07:41 36.6 C 72 16 157/83 H 94 06/25/20 23:08 36.3 C L 62 18 149/85 H 94 06/25/20 21:40 36 C L 59 L 18 159/80 H 96 06/25/20 21:15 36 C L 59 L 18 159/80 H 96
--- NOTE | 2020-06-26 10:27 | Billing Data ---
Date of Service June 25, 2020 Coding Level of Care Code 17187 Initial Inpt Care Lvl 2
--- NOTE | 2020-06-26 11:52 | Pharmacy Report ---
Pharmacy Abx Dose Short Note - Date of Service June 26, 2020 - Assessment & Plan Assessment 55 year old M with cellulitis of foot. He is type 2 diabetic. Foot xray showed no osteomyelitis, CT of foot suggestive of cellulitis. Patient is s/p partial L foot amputation. Blood cultures and foot cultures pending. Started on vancomycin/zosyn. Plan Vancomycin * Received loading dose of vancomycin 2750 mg last evening, started on vancomycin 1500 mg iv q 12 hrs * Scr improving more towards baseline from 1.47 to 1.13 mg/dL (crcl >100) / plan to increase vancomycin dosing to target level ~10-15 mcg/ml (goal for cellulitis) * Estimated kinetics: t1/2~8 hrs, ke~0.08, CrCl ~100 ml/min. * Will consider checking trough if vancomycin is to be continued >48 hrs Zosyn * 4.5 gm iv q 8 hr - appropriate for crcl >20 Pharmacy will continue to follow and will adjust dose/frequency as necessary. Thank you.
--- NOTE | 2020-06-26 11:54 | Electrocardiogram Report ---
Test Reason : Blood Pressure : / mmHG Vent. Rate : 071 BPM Atrial Rate : 071 BPM P-R Int : 150 ms QRS Dur : 100 ms QT Int : 432 ms P-R-T Axes : 040 028 061 degrees QTc Int : 469 ms Sinus rhythm with Premature ventricular complexes Otherwise normal ECG When compared with ECG of 25-NOV-2003 18:49, Premature ventricular complexes now present Confirmed by Dave Lyn ([id number]) on 06/26/2020 11:54:43 AM Referred By: Rachel Calderón Confirmed By:Dave Lyn
--- NOTE | 2020-06-26 14:42 | Hospitalist Progress Note ---
Date of Service June 26, 2020 Assessment & Plan (1) Cellulitis of left foot: Improving with antibiotic therapy. He has a Charcot foot and there is evidence of osteonecrosis on the CT scan. We will need to rule out osteomyelitis with MRI scan which is pending. Appreciate podiatry consultation and recommendations (2) Diabetes mellitus: Type II. ADA diet. Continue current medication management. Sliding scale coverage as needed (3) KATALINA (acute kidney injury): Creatinine is now at baseline. Lisinopril and torsemide are currently on hold. May be resumed at discharge Present on Admission?: Yes (4) Hyperlipidemia: Medical management (5) Hypertension: Medical management (6) Venous stasis dermatitis of left lower extremity: Chronic. Compression stockings and leg elevation recommended DVT prophylaxis: Heparin or Lovenox subcu Disposition: Possible discharge to home tomorrow on oral antibiotics if the left foot MRI scan is negative for osteomyelitis Admission and Anticipated Discharge Date Admission Date: June 25, 2020 Subjective Alert and oriented. No acute complaints. He feels as if his left foot cellulitis is improving. Creatinine is down to 1.1. Left foot CT scan results noted. There is evidence of osteonecrosis of the second MTP joint. Osteomyelitis will need to be ruled out. MRI scan has been ordered and is pending. Appreciate podiatry consultation. If MRI scan is negative for osteomyelitis, he possibly could go home tomorrow on oral antibiotics. Lisinopril and torsemide are on hold. Review of Systems Review of Systems: Constitutional-no fever or chills ENT-no blurred vision, no double vision, no epistaxis, no sore throat Respiratory-no cough, no wheezing, no shortness of breath Cardiac-no palpitations, no chest pain, no syncope GI-no nausea, vomiting, diarrhea, melena, hematochezia -no urinary retention, no urinary incontinence, no dysuria, no hematuria Musculoskeletal-previous amputation of left fifth toe and left fifth distal ray. Plantar medial forefoot callus and small ulcerated area with resolving surrounding cellulitis. No drainage Skin-no bruising, no rashes, no pruritus Neuro-no isolated weakness, no paresthesia, no weakness Psych-no depression, no anxiety Physical Exam Physical Exam: General-alert and oriented x3, no fevers, no chills HEENT-head atraumatic and normocephalic, TMs intact bilaterally, pupils equal and reactive to light, extraocular muscles intact Neck-no lymphadenopathy or thyromegaly, trachea midline Chest-clear to auscultation percussion. No rales wheezing or rhonchi Cardiac-regular rate and rhythm, normal S1 and S2, no murmurs Abdomen-normal bowel sounds, nontender, no hepatosplenomegaly Extremities-chronic venous stasis changes bilateral distal lower extremities. Previous amputation of left fifth toe and left distal fifth ray well-healed. Callus with small ulceration medial aspect left plantar forefoot area without drainage. Resolving surrounding cellulitis Neuro-cranial nerves II through XII intact, no focal deficits Psych-normal affect, normal mood Results & Data Results & Data ([facility]) Vital Signs (Past 12 Hours) Vital Signs Temp Pulse Resp BP Pulse Ox 06/26/20 07:41 36.6 C 72 16 157/83 H 94 Laboratory Results 06/26/20 05:58 06/26/20 05:58 PG Care Time/CCT Total # of Minutes Spent Total Time Spent with Patient: Total time spent is greater than 50% in coordination of care (as documented) at patient's floor/unit and/or counseling patient: Coding Level of Care Code 72138 Subseq Hosp Care Lvl 3 Diagnoses Cellulitis of left foot L03.116 Diabetes mellitus E11.621; L97.509; Z79.4 Diabetes mellitus complication detail: with foot ulcer Diabetes mellitus complication status: with skin complications 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: with tank terminal gauger use Diabetes mellitus type: type 2 KATALINA (acute kidney injury) N17.9 Hyperlipidemia E78.5 Hypertension I10 Venous stasis dermatitis of left lower extremity I87.2 (1) Diabetes mellitus Diabetes mellitus complication detail: with foot ulcer Diabetes mellitus complication status: with skin complications 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: with tank terminal gauger use Diabetes mellitus type: type 2 Qualified Code (s): E11.621 - Type 2 diabetes mellitus with foot ulcer; L97.509 - Non-pressure chronic ulcer of other part of unspecified foot with unspecified severity; Z79.4 - snf (current) use of insulin
[2020-06-26] MEDS ORDERED: ENOXAPARIN INJ 40 MG/0.4 ML SYR SQ ONE (15:00)
[2020-06-26] MEDS: VANCOMYCIN HCL 1,750 MG in SODIUM CHLORIDE 0.9% 500 ML IV SCH (17:36)
--- NOTE | 2020-06-26 20:00 | XRay Report ---
ORBIT RADIOGRAPHS 3 VIEWS HISTORY: pre-MRI screening. COMPARISON: None. FINDINGS: There are no radiopaque foreign bodies identified within the orbits. There is a right maxil tangela sinus polyp/retention cyst. IMPRESSION: No radiopaque foreign bodies identified within the orbits. ACT 112: Negative or not required by law. Electronically signed by: Cuco Raymundo M.D. 06/26/2020 7:58 PM
[2020-06-26] MEDS: SIMVASTATIN 20 MG TAB PO SCH (21:43)
[2020-06-27] MEDS ORDERED: VANCOMYCIN TROUGH ONE (05:30)
[2020-06-27] MEDS: VANCOMYCIN HCL 1,750 MG in SODIUM CHLORIDE 0.9% 500 ML IV SCH (06:25)
[2020-06-27] MEDS: PIPERACILLIN/TAZOBACTAM 4.5 GM in DEXTROSE 5% 100 ML IV SCH (06:25)
[2020-06-27] MEDS: INSULIN ASPART 100 UNITS/ML 3 ML PEN SC SCH ×2 (08:26→12:31)
[2020-06-27] MEDS: INSULIN GLARGINE SOLOSTAR 100 UNITS/ML 3 ML PEN SQ SCH (08:27)
[2020-06-27 08:35] LABS: Basophils # (auto) 0.05 K/uL (0-0.2); Basophils % (auto) 0.7 %; Eosinophils # (auto) 0.25 K/uL (0-0.5); Eosinophils % (auto) 3.5 %; Hematocrit (blood only) 35.2 % (42-52); Hemoglobin 11.6 g/dL (14.0-18.0); Immature Granulocytes # (auto) 0.02 K/uL (0.00-0.02); Immature Granulocytes % (auto) 0.3 %; Lymphocytes # (auto) 1.95 K/uL (1.2-3.4); Lymphocytes % (auto) 27.5 %; Mean Corpuscular Hemoglobin 29.6 pg (25-34); Mean Corpuscular Volume 89.8 fL (80-100); Mean Platelet Volume 12.1 fL (7.4-10.4); Monocytes # (auto) 0.36 K/uL (0.11-0.59); Monocytes % (auto) 5.1 %; Neutrophils # (auto) 4.47 K/uL (1.4-6.5); Neutrophils % (auto) 62.9 %; Platelet Count 171 K/uL (130-400); RDW Coefficient of Variation 12.9 % (11.5-14.5); Red Blood Count 3.92 M/uL (4.7-6.1)
--- NOTE | 2020-06-27 08:52 | Magnetic Resonance Report ---
MR foot LT w/o con HISTORY: 55 years-old Male cellulitis, charcot foot, rule out osteomyelitis chronic left-sided foot pain with cellulitis and possible osteomyelitis. Charcot neuropathy. COMPARISON: Acute left foot 06/25/2020, left foot radiographs 01/23/2013 TECHNIQUE: Multiplanar multisequence MRI of the left foot was obtained without the use of IV contrast . FINDINGS: There is moderate diffuse subcutaneous edema of the ankle and foot. Diffuse severe bony fragmentation with erosions of the midfoot with areas of mild associated subluxation redemonstrated. Diffuse marro w edema is likely related to the Charcot neuropathy. Small joint effusions are noted throughout. Mode rate spurring of the calcaneus. Mild tibiotalar osteoarthritis. Additionally, there is severe joint s pace narrowing of the second MTP joint with corticated bone fragments and flattening of the second me tatarsal head. Postoperative changes of resection of the fifth metatarsal head and fifth digit phalan ges. No drainable fluid collection. Varicosities of the medial lower leg. There is diffuse atrophy of the intrinsic musculature with diff use deep tissue and intramuscular edema. Soft tissue ulcer of the forefoot is noted within the medial midfoot measuring approximately 2.3 x 1.9 cm. No definite evidence of acute osteomyelitis deep to th e ulcer. IMPRESSION: 1. Diffuse marrow edema throughout the midfoot and forefoot is likely secondary to the advanced Charc ot neuropathy changes. 2. No definite evidence of acute osteomyelitis. 3. Diffuse cellulitis of the foot with soft tissue ulcer of the medial forefoot/midfoot distribution. No drainable fluid collection. 4. Chronic denervation changes. 5. Osteonecrosis of the second metatarsal head. 6. Fifth digit amputation at the level of the metatarsal head. ACT 112: Negative or not required by law. The above report was generated using voice recognition software. It may contain grammatical, syntax o r spelling errors. Electronically signed by: Tien Aparicio M.D. 06/27/2020 8:51 AM
[2020-06-27] MEDS ORDERED: ENOXAPARIN INJ 40 MG/0.4 ML SYR SQ SCH (09:00)
[2020-06-27 09:10] LABS: BUN Creatinine Ratio 13.8 (10-20); Calcium 9.1 mg/dl (8.5-10.1); Creatinine Clr Calc Pharmacy 103.5 ml/min; Est GFR (Non-African American) 70.8; Potassium 4.4 mmol/L (3.5-5.1)
--- NOTE | 2020-06-27 13:47 | Discharge Summary ---
Date of Service June 27, 2020 Admission HPI Per Admitting Provider Patient is a 55 year old male with PMHx DM2, HLD, HTN, s/p partial L foot amputation that presented initially with concerns of 3-4 days of foul smelling odor, pain, redness, and drainage from his L foot. Patient notes that roughly 5 days ago he had significant chills and had noted that his sugars were uncontrolled. He states that roughly 3-4 days ago his L foot started to smell and became more red and tender to touch. He states that his foot has been hurting for "at least a month" now, but that the past few days had worsened and he was concerned for infection. Notes that his foot pain increases to an 8/10 at the end of a day, but currently is a 2/10 at rest. He states that the over all feeling of his feet is poor and that feeling doesn't improve until above the mid-rosales. Currently denies any fever, chills, SOB, chest pain, abdominal pain, nausea, vomiting, diarrhea. Med Hx: DM2, HLD, HTN Surg Hx: L foot partial amputation, L inguinal hernia repair, Adenoidectomy Social Hx: Does note use tobacco, alcohol, drugs Fam Hx: Grandfather DM, CHF, Stroke; Grandmother Lung and uterine cx Admission Exam Per Admitting Provider Constitutional: well developed, well nourished and cooperative; no acute distress Eyes: PERRL, conjunctivae normal, anicteric sclerae ENMT: external ear and nose normal, oropharynx normal Neck: trachea midline, no thyromegaly Respiratory: normal respiratory effort; no cough Auscultation: lungs clear to auscultation bilaterally; no diminished lung sounds, no crackles, no rales and no wheezes Cardiovascular: Rate/Rhythm: regular rate and regular rhythm Heart Sounds: normal S1 and normal S2; no murmur and no cardiac rub Vessels: no JVD Extremities: no calf tenderness and no edema Gastrointestinal (Abdomen): Inspection/Auscultation: abdomen normal to inspection and normal bowel sounds; abdomen not distended Percussion/Palpation: abdomen soft; abdomen nontender, no guarding and abdomen not rigid Musculoskeletal: Head/Neck/Chest: normocephalic and head atraumatic L LE with appreciated amputation of 5th digit. Venous stasis changes on LLE to below the knee. Erythema and warmth of the plantar aspect of the foot with ulcer without obvious discharge in the mid-foot. Skin: no rashes, warm and dry Neurologic: PERRL, EOMI, accommodation nl, no face palsy, no dysarthria Psychiatric: A+Ox3, euthymic affect Principal Diagnosis Cellulitis of the Left Foot Discharge Exam Constitutional WD/WN, vitals as above Respiratory normal respiratory effort, lungs clear to auscultation Cardiovascular RRR, no murmur, no edema Musculoskeletal Left foot with prominent 1st TMT joint Callous present with no erythema, edema or drainage Skin no rashes, warm and dry Discharge Data Allergies Allergy/AdvReac Type Severity Reaction Status Date / Time No Known Allergies Allergy Unknown Verified 06/25/20 17:52 Consultations 06/25/20 17:36 ED Decision to Admit Stat 06/25/20 21:32 Consult Podiatry Routine Ordered Studies Laboratory Results - last 24 hr 06/26/20 06/26/20 06/27/20 17:04 21:25 07:24 WBC RBC Hgb Hct MCV MCH MCHC RDW Std Deviation RDW Coeff of Sil Plt Count MPV Immature Gran % (Auto) Neut % (Auto) Lymph % (Auto) [place] % (Auto) Eos % (Auto) Baso % (Auto) Neut # (Auto) Lymph # (Auto) [place] # (Auto) Eos # (Auto) Baso # (Auto) Immature Gran # (Auto) Sodium Potassium Chloride Carbon Dioxide Anion Gap BUN Creatinine Est Cr Clr Drug Dosing Est GFR ( Amer) Est GFR (Non-Af Amer) BUN/Creatinine Ratio Glucose POC Glucose 115 H 126 H 121 H Calcium 06/27/20 06/27/20 06/27/20 07:46 07:46 08:23 WBC 7.10 RBC 3.92 L Hgb 11.6 L Hct 35.2 L MCV 89.8 MCH 29.6 MCHC 33.0 RDW Std Deviation 42.0 RDW Coeff of Sil 12.9 Plt Count 171 MPV 12.1 H Immature Gran % (Auto) 0.3 Neut % (Auto) 62.9 Lymph % (Auto) 27.5 [place] % (Auto) 5.1 Eos % (Auto) 3.5 Baso % (Auto) 0.7 Neut # (Auto) 4.47 Lymph # (Auto) 1.95 [place] # (Auto) 0.36 Eos # (Auto) 0.25 Baso # (Auto) 0.05 Immature Gran # (Auto) 0.02 Sodium 142 Potassium 4.4 Chloride 113 H Carbon Dioxide 23 Anion Gap 6.0 BUN 16 Creatinine 1.17 Est Cr Clr Drug Dosing 103.5 Est GFR ( Amer) 82.0 Est GFR (Non-Af Amer) 70.8 BUN/Creatinine Ratio 13.8 Glucose 109 H POC Glucose 120 H Calcium 9.1 06/27/20 12:09 WBC RBC Hgb Hct MCV MCH MCHC RDW Std Deviation RDW Coeff of Sil Plt Count MPV Immature Gran % (Auto) Neut % (Auto) Lymph % (Auto) [place] % (Auto) Eos % (Auto) Baso % (Auto) Neut # (Auto) Lymph # (Auto) [place] # (Auto) Eos # (Auto) Baso # (Auto) Immature Gran # (Auto) Sodium Potassium Chloride Carbon Dioxide Anion Gap BUN Creatinine Est Cr Clr Drug Dosing Est GFR ( Amer) Est GFR (Non-Af Amer) BUN/Creatinine Ratio Glucose POC Glucose [address] foot LT wo con HISTORY: 55 years-old Male poss osteo chronic left foot pain with neuropathy. COMPARISON: Left foot radiographs 01/22/2013 TECHNIQUE: Multiple axial CT images of the left foot were obtained without the use of IV contrast. A dose lowering technique was used consistent with the principals of LULY. FINDINGS: There is moderate diffuse subcutaneous edema of the ankle and foot. The mineralized appearance of the bones. Interval development of diffuse severe bony fragmentation/erosion of the midfoot with areas of mild associated subluxation. Moderate spurring of the calcaneus. Mild tibiotalar osteoarthritis. Additionally, there is severe joint space narrowing of the second MTP joint with corticated bone fragments and flattening of the second metatarsal head. Interval postoperative changes of resection of the fifth metatarsal head and fifth digit phalanges. No drainable fluid collection. The ligaments and tendons are not well evaluated by CT technique. Varicosities of the medial lower leg. There is diffuse atrophy of the intrinsic musculature. Soft tissue ulcer of the forefoot is noted within the medial midfoot. No definite evidence of acute osteomyelitis deep to the ulcer. IMPRESSION: 1. Interval development of bony fragmentation/erosions of the forefoot with subluxations suggestive of Charcot neuropathy. 2. Diffuse subcutaneous edema suggests cellulitis. There is a soft tissue ulcer of the medial forefoot. No abscess or evidence of acute osteomyelitis deep to the ulcer. 3. Interval amputation of the fifth metatarsal head and fifth digit phalanges. 4. Severe joint space narrowing of the second MTP joint with subchondral collapse/osteonecrosis of the second metatarsal head, also new from 2012 HISTORY: 55 years-old Male left foot infection with diabetes diabetes. Chronic left foot pain COMPARISON: CT left foot of same day, left foot radiographs 01/23/2013 TECHNIQUE: 3 views of the left foot FINDINGS: Pes planus. Destruction of the midfoot is noted with sclerosis, bony fragmentation and mild multi articulation subluxation. Interval partial amputation of the fifth digit at the level of the distal diaphyseal fifth metatarsal. There is cortical thickening throughout the second metatarsal. There is flattening of the second metatarsal head with severe joint space narrowing at the second MTP joint. Mild diffuse soft tissue swelling. No acute fractures or definitive evidence of acute osteomyelitis. IMPRESSION: 1. Diffuse soft tissue prominence without acute fracture or definite evidence of acute osteomyelitis. 2. Charcot neuropathy. 3. Partial amputation of the fifth digit. 4. Severe joint space narrowing of the second MTP joint with suggested osteon ecrosis of the second metatarsal head. 06/26/20 14:15 MR foot LT w/o con Urgent [facility], [id number] Magnetic Resonance Report Patient: DENISSE ANDREWSAdmit Date: 06/25/20#: [id number]: [address] [place] [address] ID:[id number]: Date: 1965[facility] Zip: [place], [place] [address]Tpv: 55Location: 3NSex: MRoom/Bed: [id number] Phy: Juan Antonio Craig, CASTROiagnosis: L FOOT CELLULITISPri Phy: Rachel Calderón CRNPService Date: 06/26/20Fa Phy:Interpreting Phy: Ananda AparicioAdmit Phy: Beau Alamo DO Ordering Phy: Maico Hoffman MD cc: ~ MR foot LT w/o con HISTORY: 55 years-old Male cellulitis, charcot foot, rule out osteomyelitis chronic left-sided foot pain with cellulitis and possible osteomyelitis. Charcot neuropathy. COMPARISON: Acute left foot 06/25/2020, left foot radiographs 01/23/2013 TECHNIQUE: Multiplanar multisequence MRI of the left foot was obtained without the use of IV contrast. FINDINGS: There is moderate diffuse subcutaneous edema of the ankle and foot. Diffuse severe bony fragmentation with erosions of the midfoot with areas of mild associated subluxation redemonstrated. Diffuse marrow edema is likely related to the Charcot neuropathy. Small joint effusions are noted throughout. Moderate spurring of the calcaneus. Mild tibiotalar osteoarthritis. Additionally, there is severe joint space narrowing of the second MTP joint with corticated bone fragments and flattening of the second metatarsal head. Postoperative changes of resection of the fifth metatarsal head and fifth digit phalanges. No drainable fluid collection. Varicosities of the medial lower leg. There is diffuse atrophy of the intrinsic musculature with diffuse deep tissue and intramuscular edema. Soft tissue ulcer of the forefoot is noted within the medial midfoot measuring approximately 2.3 x 1.9 cm. No definite evidence of acute osteomyelitis deep to the ulcer. IMPRESSION: 1. Diffuse marrow edema throughout the midfoot and forefoot is likely secondary to the advanced Charcot neuropathy changes. 2. No definite evidence of acute osteomyelitis. 3. Diffuse cellulitis of the foot with soft tissue ulcer of the medial forefoot/midfoot distribution. No drainable fluid collection. 4. Chronic denervation changes. 5. Osteonecrosis of the second metatarsal head. Hospital Course (1) Cellulitis of left foot: Left foot cellulitis and wound have responded well to IV Antibiotics. treatment with Zosyn for 2 days and will need to continue Amoxicillin 500mg po TID for a total of 10 days. Pain has resolved.Cellulitis and edema have resolved. Patient is able to ambulate with no concerns at this time. Group B strep was seen on Wound Cx, therefore completion of Antibiotics and close follow up in Primary Care. (2) Deformity of foot: Specialty Consultation with Podiatry. Planned follow up in the Diabetic foot clinic for custom diabetic shoes or [facility]OSH[facility] Walker. Important the patient follow up to help further worsening of his Charcot foot. (3) Diabetes mellitus: Continue with Diabet Diet Weight Loss and activity as tolerated. Continue current outpatient medications with follow up with PCP (4) Hyperlipidemia: No changes with hospital admission, continue current outpatient medications (5) Hypertension: No changes with hospital admission, continue current outpatient me dications (6) KATALINA (acute kidney injury): Creatinine is now at baseline. Lisinopril and torsemide are currently on hold. 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 Elevate legs to reduce swelling when resting. Total Time Total Time Spent Total Time Spent (In Minutes): 35 Total Time Includes: Examination of the Patient, Discharge Planning and Medication Reconciliation Discharge Plan Discharge Items Patient Disposition: Home - Self-Care Reason For Visit: L FOOT CELLULITIS Discharge Diagnosis: Left Foot Cellulitis Condition on Discharge: Good Activity: Per Instructions section Activity Comment: resume Normal Activities starting Monday07/02/20. RTW 07/02/20. Lifting: Gradually increase as tolerated Bathing: No limitations Sexual Activity: When tolerated Exercise/Sports: None Driving/Machine Use: No limitations Weightbearing: Full weightbearing Non-emergency contact: Primary Care Provider and Specialist Call non-emergency contact if: you have any medication questions, your symptoms worsen, your pain is not controlled, your pain is worsening, your pain is unusual for you, your pain is concerning for you, you have a fever, your temperature is above 101, your wound has increased redness, your wound has increased drainage and your wound pain has increased Follow-up/Referrals: Rachel Calderón CRNP [Primary Care Provider] - Elba Fiore DPM [Physician] - (2 weeks) Diet: Carb Consistent or DM2 Addtl Attending Provider Instructions: Left foot cellulitis and wound have responded well to IV Antibiotics. Transition to Amoxicillin 500mg po TID for a total of 8 additional days. Return to work as discussed. Important to follow up with your PCP for recheck of your foot wound. Encourage follow up with Diabetic Podiatry Clinic, you should be contacted for a future appointment. Continue activity as tolerated and weight loss to help prevention. Pending Studies at Discharge: Yes Studies:: Wound Specimen only Preliminary Results Stand-Alone Forms: My Studio[employer], Smoking Cessation Medications and DC Order Prescriptions: New amoxicillin 500 mg capsule 500 mg PO TID Qty: 24 RF: 0 Continued metformin 500 mg tablet 500 mg PO BID Qty: 180 RF: 3 insulin lispro [Humalog KwikPen Insulin] 100 unit/mL insulin pen 5 units SQ .COMPLEX Qty: 15 RF: 5 lisinopril 5 mg tablet 5 mg PO DAILY Qty: 90 RF: 3 Lantus Solostar U-100 Insulin 100 unit/mL (3 mL) insulin pen 30 unit SQ QAM Qty: 15 RF: 3 cyanocobalamin (vitamin B-12) 500 mcg tablet 500 mcg PO QAM RF: 0 (DME) pen needle, diabetic [Sure-Fine Pen [place]] 31 gauge x 5/16" needle See Dose Instructions .ROUTE .MEDSUPPLY Qty: 200 RF: 5 torsemide 20 mg tablet 20 mg PO DAILY RF: 0 simvastatin 20 mg tablet 20 mg PO QPM RF: 0 Discharge Orders: Discharge Order (Routine); Ordered 06/27/20 Ordered By: Juan Antonio Morales/Other Patient Handouts: Managing Type 2 Diabetes Admission Data Admit Date/Time: 06/25/20 19:29 Attending Provider: Juan Antonio Craig Admit Provider: Beau Alamo Primary Care Provider: Rachel Calderón Other Providers: Oumar Aguilar ; Elba Fiore Other Interventions: Discharge Summary Assessment (RN) Last Done: 06/27/20 14:56 Coding Level of Care Code D/C Day Management >30 mins Diagnoses Cellulitis of left foot L03.116 Deformity of foot M21.962 Laterality: left Diabetes mellitus E11.621; L97.509; Z79.4 Diabetes mellitus complication detail: with foot ulcer Diabetes mellitus complication status: with skin complications 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
== END 2020-06-27 15:12 | disposition home or self-care (01) ==
LOC: ED 15:40 → SUATTDRO 19:29 → 3N 19:29 → INTOOBSV 19:29 → 3N 20:40

== ENCOUNTER 2023-11-10 12:18 | Inpatient (IN) ==
[2023-11-10] MEDS: SODIUM CHLORIDE 0.9% 1,000 ML IV SCH (13:20)
--- NOTE | 2023-11-10 13:24 | XRay Report ---
XR chest 1V portable HISTORY: 58 years-old Male Sepsis COMPARISON: 06/25/2020 TECHNIQUE: AP view the chest FINDINGS: Cardiac silhouette is enlarged. No pneumothorax, pleural effusion or airspace consolidation. Spondylo tic spurring of the spine. IMPRESSION: No acute process. ACT 112: Negative or not required by law. The above report was generated using voice recognition software. It may contain grammatical, syntax o r spelling errors. Electronically signed by: Ananda Aparicio M.D. 11/10/2023 1:23 PM
--- NOTE | 2023-11-10 13:43 | XRay Report ---
XR foot RT min 3V routine CLINICAL HISTORY: concern for osteomyelitis from wound care TECHNIQUE: 3 views of the right foot were obtained. Comparison: Comparison is made to right foot radiograph 08/11/2023 FINDINGS: No fractures are present. Joint space narrowing and osteophyte formation is most prominent at the mid foot. Osteonecrosis of the second metatarsal head is again seen. No soft tissue abnormality is seen. IMPRESSION: Redemonstration of changes of Charcot joint. Superimposed osteomyelitis is difficult to exclude altho ugh no definite erosions are seen on this exam. If there is concern for osteomyelitis, MRI is a more sensitive modality. ACT 112: Negative or not required by law. Electronically signed by: Jeb Vuong M.D. 11/10/2023 1:41 PM
[2023-11-10 13:47] LABS: Basophils # (auto) 0.04 K/uL (0.00-0.20); Basophils % (auto) 0.3 %; Eosinophils # (auto) 0.01 K/uL (0.00-0.50); Eosinophils % (auto) 0.1 %; Hematocrit (blood only) 37.7 % (42.0-52.0); Hemoglobin 12.5 g/dl (14.0-18.0); Immature Granulocytes # (auto) 0.07 K/uL (0.01-0.20); Immature Granulocytes % (auto) 0.5 %; Lymphocytes # (auto) 0.37 K/uL (1.20-3.40); Lymphocytes % (auto) 2.8 %; Mean Corpuscular Hemoglobin 29.1 pg (25.0-34.0); Mean Corpuscular Hgb Conc 33.2 g/dL (32.0-36.0); Mean Corpuscular Volume 87.7 fL (80.0-100.0); Mean Platelet Volume 12.5 fL (9.4-12.4); Monocytes # (auto) 0.82 K/uL (0.11-0.59); Monocytes % (auto) 6.3 %; Neutrophils # (auto) 11.76 K/uL (1.40-6.50); Platelet Count 167 K/uL (130-400); RDW Coefficient of Variation 13.2 % (11.5-14.5); RDW Standard Deviation 42.4 fL (36.4-46.3); White Blood Count 13.07 K/ul (4.8-10.8)
[2023-11-10 14:03] LABS: Alanine Aminotransferase 33 U/L (7-52); Albumin Level 3.5 gm/dl (3.4-5.0); Alkaline Phosphatase 72 U/L (34-104); Anion Gap 9 (3-11); Aspartate Aminotransferase 29 U/L (13-39); BUN Creatinine Ratio 18.3 (10-20); Bilirubin Direct 0.7 mg/dl (0-0.2); Bilirubin,Total 1.7 mg/dl (0.2-1.0); Blood Urea Nitrogen 21 mg/dl (6-23); Calcium 9.1 mg/dl (8.6-10.3); Carbon Dioxide 23 mmol/L (21-32); Chloride 104 mmol/L (98-107); Est GFR (Non-African American) 70.7 ml/min; Glucose 106 mg/dl (70-99(Fasting)); Magnesium 1.7 mg/dl (1.7-2.4); Potassium 3.8 mmol/L (3.5-5.1); Sodium 136 mmol/L (136-145); Total Protein 6.7 gm/dl (6.0-8.3)
--- NOTE | 2023-11-10 14:04 | XRay Report ---
LEFT FOOT 3 VIEWS CLINICAL HISTORY: Diabetic foot ulcer. Infection. FINDINGS: 3 portable views of the left foot are compared to study dated 11/09/2023. The skeletal struc tures are osteopenic. There is postsurgical change from amputation of the fifth toe through the fifth metatarsal shaft. This is similar to previous. No acute fracture is identified. There is no erosive change to suggest osteomyelitis. Severe arthritic change is noted throughout the foot with a rocker-b ottom deformity. Bony sclerosis and overgrowth is seen throughout the midfoot, and this is consistent with a Charcot foot. There is evidence of chronic Lisfranc injury with offset at the second tarsomet atarsal joint and widening between the base of the first and second metatarsals. Degenerative change and flattening within the second metatarsal head is similar to previous and suggests Freiberg's Infra ction. There is subluxation at the third DIP. A large plantar heel spur is noted, and there is degene rative spurring along the dorsal aspect of the tarsal bones. Soft tissue edema is present throughout the foot. An ulceration is suggested on the plantar aspect of the midfoot. No radiodense foreign body is identified. IMPRESSION: 1. Osteopenia with chronic degenerative and postsurgical changes as above. The appearance is consiste nt with a Charcot foot. 2. Soft tissue edema is seen throughout the foot with a plantar foot ulcer. Electronically signed by: Aramis Conklin M.D. 11/10/2023 2:02 PM
[2023-11-10 14:09] LABS: Troponin I High Sensitivity 7.5 pg/ml (0-20)
[2023-11-10] MEDS ORDERED: VANCOMYCIN CONSULT ACTIVE PRN (14:16)
[2023-11-10 14:21] LABS: INR 1.3 (0.9-1.1); Partial Thromboplastin Time 27 Seconds (21-31); Prothrombin Time 13.5 Seconds (9.0-12.0)
[2023-11-10] MEDS: VANCOMYCIN HCL 2,250 MG in SODIUM CHLORIDE 0.9% 500 ML IV ONE (15:03)
--- NOTE | 2023-11-10 15:18 | History & Physical Report ---
Date of Service November 10, 2023 Assessment & Plan (1) Foot osteomyelitis, left: Plan: Suspected osteomyelitis Suspect left foot osteomyelitis No foot/podiatry service are available this weekend. Patient is significantly improved following fluids and antibiotics, no emergent surgical intervention is required. - Patient presents with fever, chills, tachycardia and an elevated procalcitonin. He has erythematous plantar ulcerations of both the right and the left foot. X-ray of the right foot shows Charcot joint from which osteomyelitis cannot be excluded, x-ray of the left foot shows evidence of Charcot foot and soft tissue edema throughout the foot without erosive changes to suggest osteomyelitis MRI of the left foot is pending Right foot is with superficial ulcer, does not appear to track deeply and is not tender/painful. Low suspicion for right foot osteo He meets sepsis criteria due to leukocytosis, tachycardia, tachypnea on admission. Additional 1590 cc NSS given to meet sepsis bolus recommendations Procalcitonin 11.4. Lactate normal Given vancomycin in the ER. Patient has a past history of group B strep culture positive's, and is with a history of diabtes expand coverage to cefepime/daptomycin on admission (2) Diabetes mellitus, type 2: Plan: Type 2 diabetes mellitus Continue glargine 30 units daily, Ozempic/dapagliflozin/metformin held and patient transition to SSI while inpatient (3) Hypertension: Plan: Hypertension Continue valsartan (4) Hyperlipidemia: Plan: Hyperlipidemia Continue statin History of Present Illness Primary Care Provider: AILEEN Gore Kirk is a 58-year-old male with a history of Charcot foot and type 2 diabetes mellitus, of lipidemia, hypertension, and diabetic neuropathy who presents on referral for wound care for suspected underlying osteomyelitis. MRI was ordered as outpatient. Left foot plantar ulceration with erythema, serous drainage, and malodorous. Patient additionally with left lower leg ulceration, and a right plantar ulceration with erythema and drainage. Kirk is seen at the bedside. He reports he was referred from wound care clinic who was worried about a bone infection in his left foot. He reports his right foot also has an ulcer but this does not hurt and feels "okay ". He did have some chills this morning. Denies fever. No chest pain, shortness of breath, presyncope, syncope. Reports he does have pain and swelling at the left foot. This has had malodorous discharge per wound care. Patient has been referred to [facility], Dr. Kay as an outpatient and has not yet seen this provider. He reports he saw an orthopedist in [place] who performed toe amputations, but does not remember which hospital or who did this and has not followed up recently. Denies history of resistant infections. 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 He did take his medications including his insulin this morning. Denies history of heart failure, heart attack, AL, CHF.. Denies history of bleeding. Medical History: Reviewed Medications: Reviewed Surgical History: Reviewed Family history: Reviewed Allergies: Reviewed Social History: Reviewed Code Status: Full Allergies Allergy/AdvReac Type Severity Reaction Status Date / Time lisinopril AdvReac Mild Cough Verified 11/10/23 10:00 Home Medications Medication Instructions Recorded Confirmed Type cyanocobalamin (vitamin B-12) 500 500 mcg PO QAM 01/22/19 11/08/23 History mcg tablet pen needle, diabetic 31 gauge x #200 ea 01/24/19 05/16/23 Rx 5/16" (Sure-Fine Pen [place]) multivitamin 1 tab PO DAILY 05/05/21 11/08/23 History cholecalciferol (vitamin D3) PO 09/06/21 11/08/23 History dapagliflozin propanediol 10 mg 10 mg PO DAILY #30 tabs 03/21/23 11/08/23 Rx tablet (Farxiga) valsartan 40 mg tablet 40 mg PO QAM #90 tabs 04/03/23 11/08/23 Rx blood-glucose sensor (FreeStyle #6 ea 05/26/23 05/26/23 Rx Mannie 3 Sensor device) metformin 500 mg tablet 500 mg PO BID #180 tabs 07/17/23 11/08/23 Rx simvastatin 20 mg tablet 20 mg PO QPM #90 tabs 10/24/23 11/08/23 Rx insulin glargine 100 unit/mL (3 30 unit subcut QAM 11/08/23 History mL) subcutaneous pen (Lantus Solostar U-100 Insulin) blood sugar diagnostic 11/10/23 11/10/23 History semaglutide 0.25 mg or 0.5 mg (2 0.25 mg subcut UD 11/10/23 11/10/23 History mg/3 mL) subcutaneous pen injector (Ozempic) Past Med/Surg History Problem List (Updated 11/10/23 @ 15:53 by Kalia Wallis MD) Diabetes mellitus, type 2 Foot osteomyelitis, left Lower extremity edema (Acute) Venous ulcer of left leg (Acute) Abnormal ankle brachial index (HOMA) (Acute) Diabetic ulcer of right foot (Acute) Diabetic ulcer of left foot (Acute) Diabetic retinopathy associated with type 2 diabetes mellitus Colon cancer screening Near sighted (Acute) Varicose veins of left leg with edema (Chronic) Venous stasis dermatitis of left lower extremity (Chronic) Hyperlipidemia Hypertension Loss of protective sensation of skin of foot Uncontrolled type 2 diabetes mellitus with complication, with long-term current use of insulin Personal history of diabetic foot ulcer Diabetic peripheral neuropathy associated with type 2 diabetes mellitus Charcot's joint of foot in type 2 diabetes mellitus (Chronic) Medical History Diabetes mellitus, type 2 Varicose vein of leg LEFT Sleep apnea had sx, no issues now Surgical History History of colonoscopy History of anesthesia reaction difficulty waking History of tonsillectomy and adenoidectomy H/O sinus surgery S/P unilateral inguinal hernia repair History of amputation of toe Family History Aunt Breast cancer Grandfather Diabetes CHF (congestive heart failure) Hyperglycemia Stroke Grandmother Lung cancer Uterine cancer Grandfather (Paternal) Family history of diabetes mellitus Other No family history of adverse response to anesthesia Social History (Updated 11/10/23 @ 10:02 by Sandy Carcamo, BARON) Smoking Status: Former smoker Second Hand Exposure: Yes ( A CHILD); Do You Dip or Chew Tobacco: No; Hx Alcohol Use: No Hx Substance Use: No Preferred Language: Bermudian Communication Ability: Effective Chip Silo Tender Required: No Beliefs That Will Affect Care: None marital status: Current Living Situation: Family Current Living Situation Comment: Mother current occupational status: employed Feels Safe at Home: Yes Childhood Exposure to Second-Hand Smoke: Yes Diet: other Diet Comment: golo caffeine: Yes during the past year weight has: remained stable Dental Care, Regularly: No Physical Activity Frequency: Does not Exercise Seatbelt Use: never Assistive Devices: Glasses Physical Exam 2 Physical Exam: General: A&Ox3. NAD. Cooperative. HEENT: Atraumatic, normocephalic. Pulm: CTAB A&P. -wheezes, -rales, -rhonchi. Symmetrical chest rise. No increased work of breathing. No respiratory distress. Cardiac: RRR, -mrg. Radial pulses intact and symmetrical. Abdominal: Nontender, nondistended, soft. BS present. Ext: see below Results & Data Results & Data Vital Signs (Past 12 Hours) Vital Signs Temp Pulse Pulse Resp BP BP Pulse Ox 11/10/23 14:30 90 19 132/78 96 11/10/23 14:00 90 20 132/80 94 11/10/23 13:34 97 H 11/10/23 13:30 100 H 24 125/74 93 11/10/23 12:45 11/10/23 12:31 37.5 C 111 H 20 110/74 97 O2 Del Method 11/10/23 14:30 Room Air 11/10/23 14:00 Room Air 11/10/23 13:34 11/10/23 13:30 Room Air 11/10/23 12:45 Room Air 11/10/23 12:31 Room Air PG Care Time/CCT Total # of Minutes Spent Total Time Spent with Patient: Total time spent is greater than 50% in coordination of care (as documented) at patient's floor/unit and/or counseling patient: Coding Level of Care Code 98147 INT INP/OBS CARE 3/75MIN Diagnoses Foot osteomyelitis, left M86.9 Diabetes mellitus, type 2 E11.9 Hypertension I10 Hyperlipidemia E78.5
[2023-11-10] MEDS: LACTATED RINGER S IV ONE (15:56)
--- NOTE | 2023-11-10 16:04 | Emergency Department Note ---
History of Present Illness General Chief complaint: Abnormal Labs/Diagnostic Testing Stated complaint: MRI NEEDS DONE Time Seen by Provider: 11/10/23 12:45 History of Present Illness Provider complaint: Concern for osteomyelitis Maximum Pain Intensity: 2 58-year-old male presents emergency department from the wound care center over concern for osteomyelitis. Patient states he has been having wounds on his bilateral lower extremities for some time and the wound care center was concerned for osteomyelitis. No fevers. Patient does report chills. Home Medications Medication Instructions Recorded Confirmed Type cyanocobalamin (vitamin B-12) 500 500 mcg PO QAM 01/22/19 11/08/23 History mcg tablet pen needle, diabetic 31 gauge x #200 ea 01/24/19 05/16/23 Rx /16" (Sure-Fine Pen [place]) multivitamin 1 tab PO DAILY 05/05/21 11/08/23 History cholecalciferol (vitamin D3) PO 09/06/21 11/08/23 History dapagliflozin propanediol 10 mg 10 mg PO DAILY #30 tabs 03/21/23 11/08/23 Rx tablet (Farxiga) valsartan 40 mg tablet 40 mg PO QAM #90 tabs 04/03/23 11/08/23 Rx blood-glucose sensor (FreeStyle #6 ea 05/26/23 05/26/23 Rx Mannie 3 Sensor device) metformin 500 mg tablet 500 mg PO BID #180 tabs 07/17/23 11/08/23 Rx simvastatin 20 mg tablet 20 mg PO QPM #90 tabs 10/24/23 11/08/23 Rx insulin glargine 100 unit/mL (3 30 unit subcut QAM 11/08/23 History mL) subcutaneous pen (Lantus Solostar U-100 Insulin) blood sugar diagnostic 11/10/23 11/10/23 History semaglutide 0.25 mg or 0.5 mg (2 0.25 mg subcut UD 11/10/23 11/10/23 History mg/3 mL) subcutaneous pen injector (Ozempic) Allergies Allergy/AdvReac Type Severity Reaction Status Date / Time lisinopril AdvReac Mild Cough Verified 11/10/23 10:00 Past Med/Surg History Problem List (Updated 11/10/23 @ 16:04 by Jacob Mohamud MD) Osteomyelitis (Acute) Diabetes mellitus, type 2 Foot osteomyelitis, left Lower extremity edema (Acute) Venous ulcer of left leg (Acute) Abnormal ankle brachial index (HOMA) (Acute) Diabetic ulcer of right foot (Acute) Diabetic ulcer of left foot (Acute) Diabetic retinopathy associated with type 2 diabetes mellitus Colon cancer screening Near sighted (Acute) Varicose veins of left leg with edema (Chronic) Venous stasis dermatitis of left lower extremity (Chronic) Hyperlipidemia Hypertension Loss of protective sensation of skin of foot Uncontrolled type 2 diabetes mellitus with complication, with long-term current use of insulin Personal history of diabetic foot ulcer Diabetic peripheral neuropathy associated with type 2 diabetes mellitus Charcot's joint of foot in type 2 diabetes mellitus (Chronic) Medical History Varicose vein of leg LEFT Sleep apnea had sx, no issues now Surgical History History of colonoscopy History of anesthesia reaction difficulty waking History of tonsillectomy and adenoidectomy H/O sinus surgery S/P unilateral inguinal hernia repair History of amputation of toe Family History Aunt Breast cancer Grandfather Diabetes CHF (congestive heart failure) Hyperglycemia Stroke Grandmother Lung cancer Uterine cancer Grandfather (Paternal) Family history of diabetes mellitus Other No family history of adverse response to anesthesia Social History Smoking Status: Former smoker Second Hand Exposure: Yes ( A CHILD); Do You Dip or Chew Tobacco: No; Hx Alcohol Use: No Hx Substance Use: No Preferred Language: Spanish Communication Ability: Effective Heating And Refrigeration Inspector Required: No Beliefs That Will Affect Care: None marital status: Current Living Situation: Family Current Living Situation Comment: Mother current occupational status: employed Feels Safe at Home: Yes Childhood Exposure to Second-Hand Smoke: Yes Diet: other Diet Comment: golo caffeine: Yes during the past year weight has: remained stable Dental Care, Regularly: No Physical Activity Frequency: Does not Exercise Seatbelt Use: never Assistive Devices: Glasses Physical Exam Vital Signs Vital Signs - 24 hr 11/10/23 12:31 11/10/23 12:45 11/10/23 13:30 Temperature 37.5 C Temperature Source Temporal Artery Scan Pulse Rate 111 H Pulse Rate [Apical] 100 H Pulse Rate from SpO2 Sensor Pulse Rhythm Regular Pulse Strength Normal Respiratory Rate 20 24 Respiratory Effort / Characteristics Non-Labored Spontaneous Non-Labored Spontaneous Respiratory Depth Normal Normal Respiratory Pattern Regular Blood Pressure 110/74 Blood Pressure [Right Arm] 125/74 Blood Pressure Mean 86 Blood Pressure Mean [Right Arm] 91 Blood Pressure Position Sitting Pulse Oximetry 97 93 Oxygen Delivery Method Room Air Room Air Room Air Sepsis Recent Fever Within 48 Hours No Sepsis New/Unexplained Change in Mental Status N/A Sepsis Action Taken by Nursing No Action Required 11/10/23 13:34 11/10/23 14:00 11/10/23 14:30 Temperature Temperature Source Pulse Rate 97 H 90 90 Pulse Rate [Apical] Pulse Rate from SpO2 Sensor 89 89 Pulse Rhythm Pulse Strength Respiratory Rate 20 19 Respiratory Effort / Characteristics Respiratory Depth Respiratory Pattern Blood Pressure 132/80 132/78 Blood Pressure [Right Arm] Blood Pressure Mean 97 96 Blood Pressure Mean [Right Arm] Blood Pressure Position Pulse Oximetry 94 96 Oxygen Delivery Method Room Air Room Air Sepsis Recent Fever Within 48 Hours Sepsis New/Unexplained Change in Mental Status Sepsis Action Taken by Nursing Physical Exam CV: Normal rate, regular rhythm, normal heart sounds and intact distal pulses. There is no peripheral edema. Palpable radial pulses bue. PULM/CHEST: Effort normal and breath sounds normal. No respiratory distress. No stridor. He has no wheezes. He has no rales. ABD: The abdomen is soft. There is no tenderness. There is no rebound, no guarding MUSC/SKEL: Ulcers to the plantar settings of the bilateral feet with some purulent discharge coming from them. Course Course 1245: The patient was evaluated in room C3. A complete history and physical exam was performed Cardiac monitoring: An order was placed for continuous cardiac monitoring. The monitor shows a rate of 110 with sinus rhythm interpreted by de 1410: Vital signs stable. Labs show a elevated procalcitonin level lactic acid within normal limits white blood cell count 13. X-ray is concerning for osteomyelitis. Patient be treated with vancomycin admitted [facility] hospitalist team. Administered Medications Vancomycin HCl 2,250 mg/ (Sodium Chloride) 545 mls @ 200 mls/hr IV NOW ONE Stop: 11/10/23 16:59 Last Admin: 11/10/23 15:03 Dose: 200 mls/hr Documented By: TEDDY Lactated Ringer's (Lr) 1,590 mls @ 999 mls/hr IV .Q1H36M ONE Stop: 11/10/23 17:13 Last Admin: 11/10/23 15:56 Dose: 999 mls/hr Documented By: TABITHA Discontinued Medications Sodium Chloride (Nss) 1,000 mls @ 999 mls/hr IV .Q1H1M RADHA Stop: 11/10/23 13:45 Last Infusion: 11/10/23 14:21 Dose: Infused Documented By: Admin: 11/10/23 13:20 Dose: 999 mls/hr Documented By: TEDDY Medical Decision Making Laboratory Data Attestation: I reviewed the patient's lab results. 11/10/23 13:12 11/10/23 13:12 Lab Results 11/10/23 11/10/23 Range/Units 13:12 13:24 WBC 13.07 H (4.8-10.8) K/ul RBC 4.30 L (4.70-6.10) M/uL Hgb 12.5 L (14.0-18.0) g/dl Hct 37.7 L (42.0-52.0) % MCV 87.7 (80.0-100.0) fL MCH 29.1 (25.0-34.0) pg MCHC 33.2 (32.0-36.0) g/dL RDW Std Deviation 42.4 (36.4-46.3) fL RDW Coeff of Sil 13.2 (11.5-14.5) % Plt Count 167 (130-400) K/uL MPV 12.5 H (9.4-12.4) fL Immature Gran % (Auto) 0.5 % Neut % (Auto) 90.0 % Lymph % (Auto) 2.8 % [place] % (Auto) 6.3 % Eos % (Auto) 0.1 % Baso % (Auto) 0.3 % Neut # (Auto) 11.76 H (1.40-6.50) K/uL Lymph # (Auto) 0.37 L (1.20-3.40) K/uL [place] # (Auto) 0.82 H (0.11-0.59) K/uL Eos # (Auto) 0.01 (0.00-0.50) K/uL Baso # (Auto) 0.04 (0.00-0.20) K/uL Immature Gran # (Auto) 0.07 (0.01-0.20) K/uL PT 13.5 H (9.0-12.0) Seconds INR 1.3 H (0.9-1.1) APTT 27 (21-31) Seconds PTT Ratio 1.0 Sodium 136 (136-145) mmol/L Potassium 3.8 (3.5-5.1) mmol/L Chloride 104 (98-107) mmol/L Carbon Dioxide 23 (21-32) mmol/L Anion Gap 9 (3-11) BUN 21 (6-23) mg/dl Creatinine 1.15 (0.6-1.4) mg/dl Est Cr Clr Drug Dosing Not Reportable Est GFR ( Amer) 82.0 ml/min Est GFR (Non-Af Amer) 70.7 ml/min BUN/Creatinine Ratio 18.3 (10-20) Glucose 106 H (70-99(Fasting)) mg/dl Lactate 1.0 (0.4-2.0) mmol/L Calcium 9.1 (8.6-10.3) mg/dl Magnesium 1.7 (1.7-2.4) mg/dl Total Bilirubin 1.7 H (0.2-1.0) mg/dl Direct Bilirubin 0.7 H (0-0.2) mg/dl AST 29 (13-39) U/L ALT 33 (7-52) U/L Alkaline Phosphatase 72 (34-104) U/L Troponin I High Sens 7.5 (0-20) pg/ml Total Protein 6.7 (6.0-8.3) gm/dl Albumin 3.5 (3.4-5.0) gm/dl Procalcitonin 11.40 H (0-0.5) ng/ml Imaging Data Attestation: I personally reviewed and interpreted this imaging study as follows: My Impression: Chest x-ray negative. Airway clear. No pneumothorax. No consolidation. No cardiomegaly or cephalization.. No free air under the diaphragm. No fractures of the skeletal structures. Radiologist's Impression: Chest X-Ray 11/10/23 12:45 XR chest 1V portable HISTORY: 58 years-old Male Sepsis COMPARISON: 06/25/2020 TECHNIQUE: AP view the chest FINDINGS: Cardiac silhouette is enlarged. No pneumothorax, pleural effusion or airspace consolidation. Spondylotic spurring of the spine. IMPRESSION: No acute process. ACT 112: Negative or not required by law. The above report was generated using voice recognition software. It may contain grammatical, syntax or spelling errors. Electronically signed by: Ananda Aparicio M.D. 11/10/2023 1:23 PM Foot X-Ray 11/10/23 12:46 LEFT FOOT 3 VIEWS CLINICAL HISTORY: Diabetic foot ulcer. Infection. FINDINGS: 3 portable views of the left foot are compared to study dated 11/09/2023. The skeletal structures are osteopenic. There is postsurgical change from amputation of the fifth toe through the fifth metatarsal shaft. This is similar to previous. No acute fracture is identified. There is no erosive change to suggest osteomyelitis. Severe arthritic change is noted throughout the foot with a rocker-bottom deformity. Bony sclerosis and overgrowth is seen throughout the midfoot, and this is consistent with a Charcot foot. There is evidence of chronic Lisfranc injury with offset at the second tarsometatarsal joint and widening between the base of the first and second metatarsals. Degenerative change and flattening within the second metatarsal head is similar to previous and suggests Freiberg's Infraction. There is subluxation at the third DIP. A large plantar heel spur is noted, and there is degenerative spurring along the dorsal aspect of the tarsal bones. Soft tissue edema is present throughout the foot. An ulceration is suggested on the plantar aspect of the midfoot. No radiodense foreign body is identified. IMPRESSION: 1. Osteopenia with chronic degenerative and postsurgical changes as above. The appearance is consistent with a Charcot foot. 2. Soft tissue edema is seen throughout the foot with a plantar foot ulcer. Electronically signed by: Aramis Conklin M.D. 11/10/2023 2:02 PM Foot X-Ray 11/10/23 12:46 XR foot RT min 3V routine CLINICAL HISTORY: concern for osteomyelitis from wound care TECHNIQUE: 3 views of the right foot were obtained. Comparison: Comparison is made to right foot radiograph 08/11/2023 FINDINGS: No fractures are present. Joint space narrowing and osteophyte formation is most prominent at the mid foot. Osteonecrosis of the second metatarsal head is again seen. No soft tissue abnormality is seen. IMPRESSION: Redemonstration of changes of Charcot joint. Superimposed osteomyelitis is difficult to exclude although no definite erosions are seen on this exam. If there is concern for osteomyelitis, MRI is a more sensitive modality. ACT 112: Negative or not required by law. Electronically signed by: Jeb Vuong M.D. 11/10/2023 1:41 PM ECG Data Attestation: I personally reviewed and interpreted this ECG as follows: Rate (beats per minute): 93 Rhythm: + normal sinus ECG Intervals/blocks: + Normal QRS, + Normal NC and + Normal QT-c ECG ST segments: + Normal ST segments [facility] Narrative 1245: The patient was evaluated in room C3. A complete history and physical exam was performed Cardiac monitoring: An order was placed for continuous cardiac monitoring. The monitor shows a rate of 110 with sinus rhythm interpreted by me 1410: Vital signs stable. Labs show a elevated procalcitonin level lactic acid within normal limits white blood cell count 13. X-ray is concerning for osteomyelitis. Patient be treated with vancomycin admitted to the [facility] hospitalist team. Impression & Plan Osteomyelitis Discharge Plan Visit Data Chief Complaint: Abnormal Labs/Diagnostic Testing Stated Complaint: MRI NEEDS DONE ED Provider: Jacob Mohamud Discharge Problem: Osteomyelitis Patient Disposition: Admitted As Inpatient Forms Stand Alone Forms: My [facility] Prescriptions Prescriptions: No Action Farxiga 10 mg tablet 10 mg PO DAILY Qty: 30 11RF valsartan 40 mg tablet 40 mg PO QAM Qty: 90 3RF metformin 500 mg tablet 500 mg PO BID Qty: 180 3RF simvastatin 20 mg tablet 20 mg PO QPM Qty: 90 3RF cholecalciferol (vitamin D3) PO (DME) FreeStyle Mannie 3 Sensor Device See Rx Instructions .Route Qty: 6 2RF Rx Instructions: As directed cyanocobalamin (vitamin B-12) 500 mcg tablet 500 mcg PO QAM (DME) pen needle, diabetic [Sure-Fine Pen [place]] 31 gauge x 5/16" needle See Dose Instructions .ROUTE .MEDSUPPLY Qty: 200 5RF Dose Instruction: As directed Rx Instructions: use up to 4 times daily as directed by insulin glargine [Lantus Solostar U-100 Insulin] 100 unit/mL (3 mL) insulin pen 30 unit SQ QAM multivitamin Tablet 1 tab PO DAILY (DME) One Touch Test Strip MISCELLANEOUS Rx Instructions: as directed, qid Ozempic 0.25 mg or 0.5 mg (2 mg/3 mL) pen injector 0.25 mg subcut UD Rx Instructions: 0.25 mg subcutaneously weekly x 4 weeks, then increase to 0.5mg weekly; Referrals Referrals: Rachel Kilpatrick CRNP [Primary Care Provider] - Discharge Problem: Osteomyelitis Qualifiers: Osteomyelitis type: unspecified type Osteomyelitis location: foot Laterality: u nspecified laterality Qualified Code(s): M86.9 - Osteomyelitis, unspecified
[2023-11-10] MEDS: CEFEPIME 20 ML IV SCH (16:32)
--- NOTE | 2023-11-10 16:40 | XRay Report ---
BONY ORBITS 3 VIEWS CLINICAL HISTORY: MRI clearance. FINDINGS: 3 views of the bony orbits are compared to study dated 06/26/2020. There is no radiodense/met allic foreign body seen in the region of the bony orbits. The bony orbits are intact as imaged. The v isualized paranasal sinuses and the mastoid air cells appear clear. The imaged calvarium appears inta ct. IMPRESSION: There is no radiodense/metallic foreign body seen in the region of the bony orbits. ACT 112: Negative or not required by law. Electronically signed by: Aramis Conklin M.D. 11/10/2023 4:39 PM
[2023-11-10 17:59] LABS: Appearance Urine Clear (Clear); Bilirubin Urine Negative (Negative); Blood Urine Negative (Negative); Color Urine Yellow; Glucose Urine UA 2+ (Negative); Ketones Urine 1+ (Negative); Leukocyte Esterase Urine Negative (Negative); Nitrite Urine Negative (Negative); Protein Urine Negative (Negative); Specific Gravity Urine 1.015 (1.000-1.030); Urobilinogen Urine Negative (Negative); pH Urine 5.5 (4.5-7.5)
[2023-11-10] MEDS ORDERED: CARBOHYDRATES FOR HYPOGLYCEMIA PO PRN (20:40)
[2023-11-10] MEDS ORDERED: PHARMACY GLYCEMIC MGMT CONSULT PRN (20:40)
[2023-11-10] MEDS ORDERED: DEXTROSE 50% 50 ML SYRINGE IV PRN (20:40)
[2023-11-10] MEDS ORDERED: GLUCAGON FOR INJ 1 MG VIAL SQ PRN (20:40)
[2023-11-10] MEDS ORDERED: GLUCOSE 10 TAB/TUBE PO PRN (20:40)
[2023-11-10] MEDS ORDERED: GLUCOSE 40% GEL 15 GM TUBE PO PRN (20:40)
[2023-11-10] MEDS: GADOBUTROL 65ML VIAL IV ONE (21:15)
[2023-11-10] MEDS: INSULIN ASPART PER UNIT CHARGE SC SCH (21:29)
[2023-11-10 21:37] LABS: C Reactive Protein 7.89 mg/dl (0-0.5)
--- NOTE | 2023-11-10 22:10 | Magnetic Resonance Report ---
Exam(s): MRI LEFT FOOT W/WO Contrast IV Amt: 11mL Gadavist given IV EXAM: MR Left Lower Extremity Without and With Intravenous Contrast, Foot CLINICAL HISTORY: Reason for exam: suspected osteomyelitis. TECHNIQUE: Multiplanar magnetic resonance images of the left foot without and with intravenous contrast. CONTRAST: Patient received 11mL Gadavist given IV of IV contrast COMPARISON: None. FINDINGS: LIGAMENTS: Medial collateral: Unremarkable. Lateral collateral: Unremarkable. Lisfranc: Unremarkable. TENDONS: Flexor: Unremarkable. Extensor: Unremarkable. Peroneal: Unremarkable. Tibialis anterior: Unremarkable. Tibialis posterior: Unremarkable. Muscles: Unremarkable. Fluid: Unremarkable. No joint effusion. Sinus tarsi: Unremarkable as visualized. Tarsal tunnel: Unremarkable. Plantar fascia: Unremarkable. Cartilage: Unremarkable. Bones/joints: Nonspecific areas of increased signal within the anterior calcaneus and cuboid with partial mild fluid within the joint space. Mild enhancement of the anterior aspect of the calcaneus and cuboid which may indicate very early osteoarthritis. Status post amputation of the fifth toe from the distal aspect of the fifth metatarsus. Well-corticated irregular margins involving multiple tarsal bones including cuneiform, metatarsal bases, navicular and cuboid with deformities suggestive of chronic degenerative disease or sequela of Charcot joint. Likely incomplete saturation of the distal phalanges of the third and fourth toes and possible second toe. No acute fracture. Soft tissues: Extensive edema involving the superficial soft tissues of the foot, more severe laterally as well as through the medial midfoot and plantar region. There is diffuse enhancement through the medial aspect of the midfoot and plantar region with question ulceration at the level of the plantar region of the midfoot and tract-like appearance, combination of findings consistent with cellulitis and plantar ulceration. This is best seen on images 27 through 24, image 11. IMPRESSION: 1. Extensive soft tissue swelling/cellulitis, more severe along the medial aspect of the midfoot and plantar region with suggestion of ulceration and tract-like hypointensity. 2. Possible early osteomyelitis involving the anterior aspect of the calcaneus and cuboid, clinical correlation recommended and if indicated, follow-up MRI to evaluate progression recommended. 3. Severe degenerative disease of the midfoot articulations versus chronic Charcot joint. Electronically signed by: Elyssa Jose MD 11/10/23 22:09 PM
[2023-11-10] MEDS: CEFEPIME 2,000 MG in SYRINGE 0 ML IV SCH (23:43)
[2023-11-10] MEDS: HEPARIN SOD 5,000 UNIT/0.5 ML VIAL SQ SCH (23:43)
[2023-11-10] MEDS: DAPTOmycin 575 MG in SYRINGE 0 ML IV SCH (23:44)
[2023-11-11] MEDS: VALSARTAN 80 MG TAB PO SCH (07:55)
[2023-11-11 08:35] LABS: Basophils # (auto) 0.06 K/uL (0.00-0.20); Basophils % (auto) 0.7 %; Eosinophils % (auto) 1.2 %; Hematocrit (blood only) 33.2 % (42.0-52.0); Hemoglobin 11.1 g/dl (14.0-18.0); Immature Granulocytes # (auto) 0.04 K/uL (0.01-0.20); Immature Granulocytes % (auto) 0.5 %; Lymphocytes # (auto) 0.91 K/uL (1.20-3.40); Lymphocytes % (auto) 11.3 %; Mean Corpuscular Hemoglobin 29.5 pg (25.0-34.0); Mean Corpuscular Hgb Conc 33.4 g/dL (32.0-36.0); Mean Corpuscular Volume 88.3 fL (80.0-100.0); Mean Platelet Volume 12.3 fL (9.4-12.4); Monocytes # (auto) 0.57 K/uL (0.11-0.59); Monocytes % (auto) 7.1 %; Neutrophils # (auto) 6.37 K/uL (1.40-6.50); Neutrophils % (auto) 79.2 %; Platelet Count 132 K/uL (130-400); RDW Coefficient of Variation 13.2 % (11.5-14.5); RDW Standard Deviation 42.8 fL (36.4-46.3); Red Blood Count 3.76 M/uL (4.70-6.10); White Blood Count 8.05 K/ul (4.8-10.8)
[2023-11-11 08:38] LABS: Estimated Average Glucose 143 mg/dl; Hemoglobin A1C 6.6 % (4.5-5.6)
[2023-11-11 08:50] LABS: BUN Creatinine Ratio 18.2 (10-20); C Reactive Protein 9.27 mg/dl (0-0.5); Calcium 8.4 mg/dl (8.6-10.3); Creatinine Clr Calc Pharmacy 103.4 ml/min; Est GFR (African American) 86.5 ml/min; Est GFR (Non-African American) 74.6 ml/min; Potassium 4.1 mmol/L (3.5-5.1)
--- NOTE | 2023-11-11 11:29 | Electrocardiogram Report ---
Test Reason : Blood Pressure : / mmHG Vent. Rate : 093 BPM Atrial Rate : 093 BPM P-R Int : 156 ms QRS Dur : 098 ms QT Int : 368 ms P-R-T Axes : 001 027 033 degrees QTc Int : 457 ms Normal sinus rhythm Normal ECG When compared with ECG of 25-JUN-2020 16:21, Premature ventricular complexes are no longer Present Confirmed by Dave Lyn ([id number]) on 11/11/2023 11:29:06 AM Referred By: Rachel Kilpatrick Confirmed By:Dave Lyn
--- NOTE | 2023-11-11 11:51 | Hospitalist Progress Note ---
Date of Service November 11, 2023 Assessment & Plan (1) Foot osteomyelitis, left: Plan: Suspected osteomyelitis. Continue cefepime and daptomycin for now, day 2. Obtain podiatry consultation when they are available. (2) Diabetes mellitus, type 2: Plan: ADA diet. He denies use of basal insulin therapy and usually takes metformin which is currently on hold. Sliding scale coverage as needed. (3) Hypertension: Plan: Stable. Continue valsartan (4) Hyperlipidemia: Plan: Stable. Continue statin therapy Plan Anticipate eventual discharge back to home. The need for long-term IV antibiotics is yet to be determined Admission and Anticipated Discharge Date Admission Date: November 10, 2023 Subjective Alert and oriented. No distress. The patient states he does not use any insulin at home and typically uses only metformin which is currently on hold. Sliding scale coverage as needed. He remains on cefepime and daptomycin. Podiatry is not available over the holiday weekend. They will be consulted sometime next week. Review of Systems 2 Review of Systems: Constitutional-no fever or chills ENT-no blurred vision, no double vision, no epistaxis, no sore throat Respiratory-no cough, no wheezing, no shortness of breath Cardiac-no palpitations, no chest pain, no syncope GI-no nausea, vomiting, diarrhea, melena, hematochezia -no urinary retention, no urinary incontinence, no dysuria, no hematuria Musculoskeletal-bilateral foot deformities with left foot swelling/tenderness/erythema Skin-no bruising, no rashes, no pruritus Neuro-no isolated weakness, no paresthesia Psych-no depression, no anxiety Physical Exam 2 Physical Exam: General-alert and oriented x3, no fever, no chills HEENT-head atraumatic and normocephalic, pupils equal and reactive to light, extraocular muscles intact Neck-no lymphadenopathy or thyromegaly, trachea midline Chest-clear to auscultation. No rales, wheezing or rhonchi Cardiac-regular rate and rhythm, normal S1 and S2 Abdomen-normal bowel sounds, no hepatosplenomegaly Extremities-bilateral Charcot foot deformities. Left foot with dorsal erythema swelling and tenderness Neuro-cranial nerves II through XII intact, motor and sensory function within normal limits, strength symmetrical, no focal deficits Psych-normal affect, normal mood Results & Data Results & Data Vital Signs (Past 12 Hours) Vital Signs Temp Pulse Resp BP Pulse Ox O2 Del Method 11/11/23 07:48 37.1 C 63 18 125/70 94 Room Air Laboratory Results 11/11/23 08:08 11/11/23 08:08 PG Care Time/CCT Total # of Minutes Spent Total Time Spent with Patient: Total time spent is greater than 50% in coordination of care (as documented) at patient's floor/unit and/or counseling patient: Coding Level of Care Code 66101 SUB INP/OBS CARE 3/50MIN Diagnoses Foot osteomyelitis, left M86.9 Diabetes mellitus, type 2 E11.9 Hypertension I10 Hyperlipidemia E78.5
[2023-11-11] MEDS: HEPARIN SOD 5,000 UNIT/0.5 ML VIAL SQ SCH (20:15)
[2023-11-12 06:25] LABS: Basophils # (auto) 0.04 K/uL (0.00-0.20); Basophils % (auto) 0.5 %; Eosinophils # (auto) 0.15 K/uL (0.00-0.50); Eosinophils % (auto) 1.7 %; Hematocrit (blood only) 33.6 % (42.0-52.0); Hemoglobin 11.1 g/dl (14.0-18.0); Immature Granulocytes # (auto) 0.03 K/uL (0.01-0.20); Immature Granulocytes % (auto) 0.3 %; Lymphocytes # (auto) 1.04 K/uL (1.20-3.40); Lymphocytes % (auto) 11.8 %; Mean Corpuscular Volume 87.7 fL (80.0-100.0); Mean Platelet Volume 12.6 fL (9.4-12.4); Monocytes # (auto) 0.84 K/uL (0.11-0.59); Monocytes % (auto) 9.5 %; Neutrophils # (auto) 6.71 K/uL (1.40-6.50); Neutrophils % (auto) 76.2 %; Platelet Count 146 K/uL (130-400); RDW Coefficient of Variation 13.1 % (11.5-14.5); RDW Standard Deviation 41.6 fL (36.4-46.3); Red Blood Count 3.83 M/uL (4.70-6.10); White Blood Count 8.81 K/ul (4.8-10.8)
[2023-11-12 06:27] LABS: Calcium 8.5 mg/dl (8.6-10.3); Creatinine Clr Calc Pharmacy 99.7 ml/min; Est GFR (African American) 82.9 ml/min; Est GFR (Non-African American) 71.5 ml/min; Potassium 4.1 mmol/L (3.5-5.1)
--- NOTE | 2023-11-12 13:48 | Hospitalist Progress Note ---
Date of Service November 12, 2023 Assessment & Plan (1) Foot osteomyelitis, left: Plan: Probable underlying osteomyelitis. Continue cefepime and daptomycin for now, day 3. Obtain podiatry consultation when they are available. Infectious disease consultation requested. Left foot swab culture is growing E. coli and Klebsiella. Right foot swab culture is growing Enterobacter. (2) Diabetes mellitus, type 2: Plan: ADA diet. He denies use of basal insulin therapy and usually takes metformin which is currently on hold. Sliding scale coverage as needed. (3) Hypertension: Plan: Stable. Continue valsartan (4) Hyperlipidemia: Plan: Stable. Continue statin therapy Plan To be determined. Anticipate eventual discharge back to home. The need for long-term IV antibiotics is yet to be determined Admission and Anticipated Discharge Date Admission Date: November 10, 2023 Subjective Alert and oriented. No new problems. Swab culture of the right foot is growing Enterobacter. Swab culture of the left foot is growing E. coli and Klebsiella. Infectious disease consultation requested and pending. Will obtain podiatry consultation after the weekend. Left foot MRI scan report noted. Cefepime and daptomycin day 3. Review of Systems 2 Review of Systems: Constitutional-no fever or chills ENT-no blurred vision, no double vision, no epistaxis, no sore throat Respiratory-no cough, no wheezing, no shortness of breath Cardiac-no palpitations, no chest pain, no syncope GI-no nausea, vomiting, diarrhea, melena, hematochezia -no urinary retention, no urinary incontinence, no dysuria, no hematuria Musculoskeletal-bilateral foot deformities with left foot swelling/tenderness/erythema Skin-no bruising, no rashes, no pruritus Neuro-no isolated weakness, no paresthesia Psych-no depression, no anxiety Physical Exam 2 Physical Exam: General-alert and oriented x3, no fever, no chills HEENT-head atraumatic and normocephalic, pupils equal and reactive to light, extraocular muscles intact Neck-no lymphadenopathy or thyromegaly, trachea midline Chest-clear to auscultation. No rales, wheezing or rhonchi Cardiac-regular rate and rhythm, normal S1 and S2 Abdomen-normal bowel sounds, no hepatosplenomegaly Extremities-bilateral Charcot foot deformities. Left foot with dorsal erythema swelling and tenderness Neuro-cranial nerves II through XII intact, motor and sensory function within normal limits, strength symmetrical, no focal deficits Psych-normal affect, normal mood Results & Data Results & Data Vital Signs (Past 12 Hours) Vital Signs Temp Pulse Resp BP Pulse Ox O2 Del Method 11/12/23 07:23 37 C 82 16 129/77 97 Room Air Laboratory Results 11/12/23 05:41 11/12/23 05:41 PG Care Time/CCT Total # of Minutes Spent Total Time Spent with Patient: Total time spent is greater than 50% in coordination of care (as documented) at patient's floor/unit and/or counseling patient: Coding Level of Care Code 35456 SUB INP/OBS CARE 3/50MIN Diagnoses Foot osteomyelitis, left M86.9 Diabetes mellitus, type 2 E11.9 Hypertension I10 Hyperlipidemia E78.5
[2023-11-13 07:08] LABS: Basophils # (auto) 0.06 K/uL (0.00-0.20); Basophils % (auto) 0.6 %; Eosinophils # (auto) 0.19 K/uL (0.00-0.50); Eosinophils % (auto) 1.9 %; Hematocrit (blood only) 36.6 % (42.0-52.0); Hemoglobin 12.1 g/dl (14.0-18.0); Immature Granulocytes # (auto) 0.03 K/uL (0.01-0.20); Immature Granulocytes % (auto) 0.3 %; Lymphocytes # (auto) 1.43 K/uL (1.20-3.40); Lymphocytes % (auto) 14.2 %; Mean Corpuscular Hemoglobin 29.1 pg (25.0-34.0); Mean Corpuscular Hgb Conc 33.1 g/dL (32.0-36.0); Mean Platelet Volume 12.2 fL (9.4-12.4); Neutrophils # (auto) 7.64 K/uL (1.40-6.50); Platelet Count 192 K/uL (130-400); RDW Coefficient of Variation 13.2 % (11.5-14.5); RDW Standard Deviation 41.9 fL (36.4-46.3); Red Blood Count 4.16 M/uL (4.70-6.10); White Blood Count 10.05 K/ul (4.8-10.8)
[2023-11-13 07:14] LABS: BUN Creatinine Ratio 17.8 (10-20); Calcium 8.8 mg/dl (8.6-10.3); Creatinine Clr Calc Pharmacy 106.3 ml/min; Est GFR (African American) 89.5 ml/min; Est GFR (Non-African American) 77.2 ml/min; Potassium 4.1 mmol/L (3.5-5.1)
--- NOTE | 2023-11-13 11:36 | Hospitalist Progress Note ---
Date of Service November 13, 2023 Assessment & Plan (1) Foot osteomyelitis, left: Plan: Probable underlying osteomyelitis. Continue cefepime and daptomycin, day 4. Obtain podiatry consultation tomorrow, November 13. Infectious disease consultation requested and remains pending. Left foot swab culture is growing E. coli and Klebsiella. Right foot swab culture is growing Enterobacter. (2) Diabetes mellitus, type 2: Plan: ADA diet. He denies use of basal insulin therapy and usually takes metformin which is currently on hold. Sliding scale coverage as needed. (3) Hypertension: Plan: Stable. Continue valsartan (4) Hyperlipidemia: Plan: Stable. Continue statin therapy Plan To be determined. Anticipate eventual discharge back to home. The need for long-term IV antibiotics is yet to be determined Admission and Anticipated Discharge Date Admission Date: November 10, 2023 Subjective Alert and oriented. No distress. He states the swelling of both feet have diminished since hospitalization with IV antibiotics. Will consult podiatry tomorrow, November 13, when they are available. Infectious disease consultation remains pending. He remains on cefepime and daptomycin, day 4 Review of Systems 2 Review of Systems: Constitutional-no fever or chills ENT-no blurred vision, no double vision, no epistaxis, no sore throat Respiratory-no cough, no wheezing, no shortness of breath Cardiac-no palpitations, no chest pain, no syncope GI-no nausea, vomiting, diarrhea, melena, hematochezia -no urinary retention, no urinary incontinence, no dysuria, no hematuria Musculoskeletal-bilateral foot deformities with left foot swelling/tenderness/erythema Skin-no bruising, no rashes, no pruritus Neuro-no isolated weakness, no paresthesia Psych-no depression, no anxiety Physical Exam 2 Physical Exam: General-alert and oriented x3, no fever, no chills HEENT-head atraumatic and normocephalic, pupils equal and reactive to light, extraocular muscles intact Neck-no lymphadenopathy or thyromegaly, trachea midline Chest-clear to auscultation. No rales, wheezing or rhonchi Cardiac-regular rate and rhythm, normal S1 and S2 Abdomen-normal bowel sounds, no hepatosplenomegaly Extremities-bilateral Charcot foot deformities. Left foot with dorsal erythema swelling and tenderness Neuro-cranial nerves II through XII intact, motor and sensory function within normal limits, strength symmetrical, no focal deficits Psych-normal affect, normal mood Results & Data Results & Data Vital Signs (Past 12 Hours) Vital Signs Temp Pulse Resp BP Pulse Ox O2 Del Method 11/13/23 07:13 36.9 C 59 L 18 120/67 97 Room Air Laboratory Results 11/13/23 06:14 11/13/23 06:14 PG Care Time/CCT Total # of Minutes Spent Total Time Spent with Patient: Total time spent is greater than 50% in coordination of care (as documented) at patient's floor/unit and/or counseling patient: Coding Level of Care Code 15310 SUB INP/OBS CARE 235MIN Diagnoses Foot osteomyelitis, left M86.9 Diabetes mellitus, type 2 E11.9 Hypertension I10 Hyperlipidemia E78.5
--- NOTE | 2023-11-14 10:14 | Infectious Disease Consult ---
Date of Consultation November 14, 2023 Assessment & Plan (1) Diabetes mellitus, type 2: (2) Foot osteomyelitis, left: (3) Lower extremity edema: (4) Diabetic ulcer of right foot: Plan 58yo M with h/o T2DM, Charcot foot, HLD, HTN, peripheral neuropathy, prior toe amputations who was referred to the ED on 11/09 with c/f osteomyelitis. He was seen in the wound clinic on 11/09 and multiple ulcers were noted, with the left foot ulcer noted to be malodorous. He had some amoxicillin from his dentist that he hadnt taken, so he took that for 1 day before coming to the hospital. Of note, he has a dog that licks his legs. Here he has been afebrile, vss. WBC 13. Cr 1.15. AST/ALT wnl. CRP 7.89>9.27. PCT 11.04. UA negative. CXR negative. L foot XR with osteopenia. R foot with changes of Charcot joint, superimposed OM difficult to exclude. MRI of left foot with extensive soft tissue swellin g/cellulitis, more severe along the medial aspect of the midfoot and plantar region with suggestion of ulceration and tract-like hypointensity; possible early osteomyelitis involving the anterior aspect of the calcaneus and cuboid. ID consulted 11/13. He has been getting daptomycin and cefepime. Will stop daptomycin since no growth of MRSA. He has multiple organisms growing on superficial cultures so will leave on cefepime. Note Pasteurella in cx, likely due to dog licking legs. I have counseled patient to not have dog licking open wounds. Will wait for further plans from podiatry. 11/09 BCx: ngtd 11/09 WCx L foot: Pasteurella multilocida, E coli (R-augmentin, cefazolin), K pneumoniae (melendez-S) 11/09 WCX R foot: E cloacae (melendez-S) 11/09 WCX L leg: E coli (I-cefazolin, R-augmentin), PsA (I-Levaquin) # Left diabetic foot infection with possible early OM polymicrobial cx # Charcot foot # T2DM - since no MRSA in cx, Bev stopped daptomycin - continue cefepime - will wait for further plans per podiatry ID will continue to follow. If questions or concerns, contact Infectious Disease Call Center . Marzena Chavez MD [facility], Division of Infectious Diseases [facility]: [phone] Consultation Information Consultation was provided via telemedicine using two-way real-time interactive telecommunication between the patient and the telemedicine provider. For the duration of the visit, the provider was performing the assessment from a different facility than the patient. This includesuse of bluetooth stethoscope forauscultationperformed by the telepresenter that the telemedicine provider can hear if described in the physical exam. Patcher Helper contact information: Please call [facility] Call Center . (Phone Number For Physician Use Only) After establishing a telemedicine visit, patient was: Patient was verified with two unique identifiers, Patient/authorized rep acknowledged consent and understanding and Gave permission to continue telehealth session Time Spent with Patient: Initial => 75 min History of Present Illness Reason for Consultation: probable OM of left foot Attending Physician: Kalia Wallis MD History of Present Illness 58yo M with h/o T2DM, Charcot foot, HLD, HTN, peripheral neuropathy, prior toe amputations who was referred to the ED on 11/09 with c/f osteomyelitis. He was seen by his PCP on 11/07 for a diabetic foot ulcer and referred to wound care. He was seen in the wound clinic on 11/09 and multiple ulcers were noted, with the left foot ulcer noted to be malodorous. He had some amoxicillin from his dentist that he hadnt taken, so he took that for 1 day before coming to the hospital. Given concerns for a OM, he was referred to the ED. He reported some chills, but. No fevers. His ulcer on right foot doesnt bother him. He did endorse pain and swelling of the left foot. Here he has been afebrile, vss. WBC 13. Cr 1.15. AST/ALT wnl. CRP 7.89>9.27. PCT 11.04. UA negative. CXR negative. L foot XR with osteopenia. R foot with changes of Charcot joint, superimposed OM difficult to exclude. MRI of left foot with extensive soft tissue swelling/cellulitis, more severe along the medial aspect of the midfoot and plantar region with suggestion of ulceration and tract-like hypointensity; possible early osteomyelitis in volving the anterior aspect of the calcaneus and cuboid. ID consulted 11/13. He has been getting daptomycin and cefepime. 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 He notes that his dog sometimes licks his legs so has been wearing pants. Allergies Allergy/AdvReac Type Severity Reaction Status Date / Time lisinopril AdvReac Mild Cough Verified 11/10/23 10:00 Home Medications Medication Instructions Recorded Confirmed Type cyanocobalamin (vitamin B-12) 500 500 mcg PO QAM 01/22/19 11/10/23 History mcg tablet pen needle, diabetic 31 gauge x #200 ea 01/24/19 05/16/23 Rx 11/01" (Sure-Fine Pen [place]) multivitamin 1 tab PO QAM 05/05/21 11/10/23 History cholecalciferol (vitamin D3) 3,000 units PO QAM 09/06/21 11/10/23 History valsartan 40 mg tablet 40 mg PO QAM #90 tabs 04/03/23 11/10/23 Rx blood-glucose sensor (FreeStyle #6 ea 05/26/23 05/26/23 Rx Mannie 3 Sensor device) metformin 500 mg tablet 500 mg PO BID #180 tabs 07/17/23 11/10/23 Rx simvastatin 20 mg tablet 20 mg PO QPM #90 tabs 10/24/23 11/10/23 Rx insulin glargine 100 unit/mL (3 30 unit subcut QAM 11/08/23 11/10/23 History mL) subcutaneous pen (Lantus Solostar U-100 Insulin) Vitamin C 1 tab PO QAM 11/10/23 11/10/23 History amoxicillin 875 mg tablet 875 mg PO BID 11/10/23 11/10/23 History blood sugar diagnostic 11/10/23 11/10/23 History dapagliflozin propanediol 10 mg 10 mg PO QAM 11/10/23 11/10/23 History tablet (Farxiga) semaglutide 0.25 mg or 0.5 mg (2 0.5 mg subcut UD 11/10/23 11/10/23 History mg/3 mL) subcutaneous pen injector (Ozempic) Patient History Medical History Varicose vein of leg LEFT Sleep apnea had sx, no issues now Surgical History History of colonoscopy History of anesthesia reaction difficulty waking History of tonsillectomy and adenoidectomy H/O sinus surgery S/P unilateral inguinal hernia repair History of amputation of toe Family History Aunt Breast cancer Grandfather Diabetes CHF (congestive heart failure) Hyperglycemia Stroke Grandmother Lung cancer Uterine cancer Grandfather (Paternal) Family history of diabetes mellitus Other No family history of adverse response to anesthesia Social History Smoking Status: Never smoker Second Hand Exposure: No; Do You Dip or Chew Tobacco: No; Hx Alcohol Use: No Hx Substance Use: No Preferred Language: Kazakh Communication Ability: Effective 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 Physical Exam Physical Exam: General: Awake, alert, no acute distress HEENT: NC/AT, EOMI, mmm Neck: supple, no LAD Lungs: respirations non-labored Heart: nl peripheral perfusion Abdomen: soft, NT/ND Back: no spinal tenderness Ext: left foot with swelling, purulent drainage from planter ulcer with surrouding erythema. Left leg with small shallow ulcer without erythema. Right plantar foot ulcer without erythema or drainage Neuro: moving all extremities Results & Data Vital Signs (Past 12 Hours) Vital Signs Temp Pulse Resp BP Pulse Ox O2 Del Method 11/14/23 07:42 36.7 C 61 18 123/74 96 Room Air Laboratory Results Labs reviewed. Diagnostic Findings Imaging reviewed. (4) Diabetic ulcer of right foot Diabetes mellitus type: type 2 Diabetic foot ulcer location: midfoot Non- pressure ulcer stage: with fat layer exposed Qualified Code(s): E11.621 - Type 2 diabetes mellitus with foot ulcer; L97.412 - Non-pressure chronic ulcer of right heel and midfoot with fat layer exposed
--- NOTE | 2023-11-14 11:10 | Hospitalist Progress Note ---
Date of Service November 14, 2023 Assessment & Plan (1) Foot osteomyelitis, left: Plan: Probable underlying osteomyelitis. Continue cefepime and daptomycin, day 5. Podiatry has been consulted today, November 13. Infectious disease consultation also requested and pending. Left foot swab culture is growing E. coli and Klebsiella. Right foot swab culture is growing Enterobacter. Left leg culture growing E. coli and Pseudomonas. (2) Diabetes mellitus, type 2: Plan: ADA diet. He denies use of basal insulin therapy and usually takes metformin, which is currently on hold. Sliding scale coverage as needed. (3) Hypertension: Plan: Stable. Continue valsartan (4) Hyperlipidemia: Plan: Stable. Continue statin therapy Plan To be determined. Anticipate eventual discharge back to home. The need for long-term IV antibiotics is yet to be determined Admission and Anticipated Discharge Date Admission Date: November 10, 2023 Subjective No new problems. Awaiting infectious disease consultation and podiatry consultation Review of Systems 2 Review of Systems: Constitutional-no fever or chills ENT-no blurred vision, no double vision, no epistaxis, no sore throat Respiratory-no cough, no wheezing, no shortness of breath Cardiac-no palpitations, no chest pain, no syncope GI-no nausea, vomiting, diarrhea, melena, hematochezia -no urinary retention, no urinary incontinence, no dysuria, no hematuria Musculoskeletal-bilateral foot deformities with left foot swelling/tenderness/erythema Skin-no bruising, no rashes, no pruritus Neuro-no isolated weakness, no paresthesia Psych-no depression, no anxiety Physical Exam 2 Physical Exam: General-alert and oriented x3, no fever, no chills HEENT-head atraumatic and normocephalic, pupils equal and reactive to light, extraocular muscles intact Neck-no lymphadenopathy or thyromegaly, trachea midline Chest-clear to auscultation. No rales, wheezing or rhonchi Cardiac-regular rate and rhythm, normal S1 and S2 Abdomen-normal bowel sounds, no hepatosplenomegaly Extremities-bilateral Charcot foot deformities. Left foot with dorsal erythema swelling and tenderness Neuro-cranial nerves II through XII intact, motor and sensory function within normal limits, strength symmetrical, no focal deficits Psych-normal affect, normal mood Results & Data Results & Data Vital Signs (Past 12 Hours) Vital Signs Temp Pulse Resp BP Pulse Ox O2 Del Method 05/28/24 07:42 36.7 C 61 18 123/74 96 Room Air Laboratory Results 11/13/23 06:14 11/13/23 06:14 PG Care Time/CCT Total # of Minutes Spent Total Time Spent with Patient: Total time spent is greater than 50% in coordination of care (as documented) at patient's floor/unit and/or counseling patient: Coding Level of Care Code 04576 SUB INP/OBS CARE 2/35MIN Diagnoses Foot osteomyelitis, left M86.9 Diabetes mellitus, type 2 E11.9 Hypertension I10 Hyperlipidemia E78.5
--- NOTE | 2023-11-14 12:37 | Podiatry Consultation ---
Date of Consultation November 14, 2023 Assessment & Plan (1) Osteomyelitis: Laterality: unspecified laterality Osteomyelitis location: foot Osteomyelitis type: unspecified type Qualified Code(s): M86.9 - Osteomyelitis, unspecified (2) Diabetes mellitus, type 2: Diabetes mellitus complication detail: with foot ulcer Diabetes mellitus complication status: with skin complications Diabetes mellitus skilled nursing insulin use: without skilled nursing use Qualified Code(s): E11.621 - Type 2 diabetes mellitus with foot ulcer; L97.509 - Non-pressure chronic ulcer of other part of unspecified foot with unspecified severity (3) Abnormal ankle brachial index (HOMA): (4) Diabetic ulcer of right foot: Diabetes mellitus type: type 2 Diabetic foot ulcer location: midfoot Non-pressure ulcer stage: with fat layer exposed Qualified Code(s): E11.621 - Type 2 diabetes mellitus with foot ulcer; L97.412 - Non-pressure statistics intern jasiel ulcer of right heel and midfoot with fat layer exposed (5) Diabetic ulcer of left foot: Diabetes mellitus type: type 2 Diabetic foot ulcer location: midfoot Non-pressure ulcer stage: with fat layer exposed Qualified Code(s): E11.621 - Type 2 diabetes mellitus with foot ulcer; L97.422 - Non-pressure chronic ulcer of left heel and midfoot with fat layer exposed (6) Charcot's joint of foot in type 2 diabetes mellitus: Plan Patient examined and evaluated. We discussed at length etiology and treatment of his bilateral foot concerns. MR imaging was reviewed. Wound was cleaned and redressed with Betadine gauze, Aquacel, 4 x 4 gauze, Kerlix, and an Yosi wrap. Deep wound cultures were obtained from a isolated deep probing location of the left foot. This could help guide long-term antibiosis. Overall, the MRI imaging is suggestive of osteomyelitis, but without deep probing to the ulcer and no profound increase in signal intensity on STIR imaging, I do believe this is more chronic Charcot deformity rather than acute osteomyelitis. Either way, bone biopsy and bone cultures would be a more definitive way to do diagnosis. We will work on scheduling this for later this week. More definitively, long-term, he would benefit from considering a Charcot foot reconstruction, custom [place] walker boot, and/or even potentially a below the knee amputation. These were all discussed at length today. For now, I would suggest a vascular referral for evaluating his abnormal ABIs and potential long-term, longstanding vascular disease. Charcot neuroarthropathy is almost always associated with a hypervascular state, though his lower extremity in this case does seem significantly avascular. Will continue to follow. History of Present Illness Reason for Consultation: B/L charcot neuroarthropathy; left foot osteomyelitis? Attending Physician: Kalia Wallis MD History of Present Illness Pt seen at bedside. States that he has a many year history of bilateral Charcot neuroarthropathy which has mostly been manageable with shoe changes and activity changes. 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 He has seen podiatrists and surgeons in the past, but did not opt for any drastic treatment. He believes he has a CHICKEN RANCH boot at home but does not wear it. Instead, he finds he does well in sandals, slides, and crocs mostly, but wears "more supportive Keen shoes" while working. He presented to wound care recently with worsening skin changes to the bottom of the left foot. They sent him to [facility] for admission with concerns of osteomyelitis. He does have recent fevers, chills, and malaise, but has felt better since being admitted. Now, he denies any new concerns overall. Allergies Allergy/AdvReac Type Severity Reaction Status Date / Time lisinopril AdvReac Mild Cough Verified 11/10/23 10:00 Home Medications Medication Instructions Recorded Confirmed Type cyanocobalamin (vitamin B-12) 500 500 mcg PO QAM 01/22/19 11/10/23 History mcg tablet pen needle, diabetic 31 gauge x #200 ea 01/24/19 05/16/23 Rx 5/16" (Sure-Fine Pen [place]) multivitamin 1 tab PO QAM 05/05/21 11/10/23 History cholecalciferol (vitamin D3) 3,000 units PO QAM 09/06/21 11/10/23 History valsartan 40 mg tablet 40 mg PO QAM #90 tabs 04/03/23 11/10/23 Rx blood-glucose sensor (FreeStyle #6 ea 05/26/23 05/26/23 Rx Mannie 3 Sensor device) metformin 500 mg tablet 500 mg PO BID #180 tabs 07/17/23 11/10/23 Rx simvastatin 20 mg tablet 20 mg PO QPM #90 tabs 10/24/23 11/10/23 Rx insulin glargine 100 unit/mL (3 30 unit subcut QAM 11/08/23 11/10/23 History mL) subcutaneous pen (Lantus Solostar U-100 Insulin) Vitamin C 1 tab PO QAM 11/10/23 11/10/23 History amoxicillin 875 mg tablet 875 mg PO BID 11/10/23 11/10/23 History blood sugar diagnostic 11/10/23 11/10/23 History dapagliflozin propanediol 10 mg 10 mg PO QAM 11/10/23 11/10/23 History tablet (Farxiga) semaglutide 0.25 mg or 0.5 mg (2 0.5 mg subcut UD 11/10/23 11/10/23 History mg/3 mL) subcutaneous pen injector (Ozempic) Patient History Medical History Varicose vein of leg LEFT Sleep apnea had sx, no issues now Surgical History History of colonoscopy History of anesthesia reaction difficulty waking History of tonsillectomy and adenoidectomy H/O sinus surgery S/P unilateral inguinal hernia repair History of amputation of toe Family History Aunt Breast cancer Grandfather Diabetes CHF (congestive heart failure) Hyperglycemia Stroke Grandmother Lung cancer Uterine cancer Grandfather (Paternal) Family history of diabetes mellitus Other No family history of adverse response to anesthesia Social History Smoking Status: Never smoker Second Hand Exposure: No; Do You Dip or Chew Tobacco: No; Hx Alcohol Use: No Hx Substance Use: No Preferred Language: Montenegrin Communication Ability: Effective Senior Developer Required: No Beliefs That Will Affect Care: None marital status: Current Living Situation: Family Current Living Situation Comment: Mother current occupational status: employed Feels Safe at Home: Yes Childhood Exposure to Second-Hand Smoke: Yes Diet: other Diet Comment: golo caffeine: Yes during the past year weight has: remained stable Dental Care, Regularly: No Physical Activity Frequency: Does not Exercise Seatbelt Use: never Assistive Devices: None Review of Systems Review of Systems: All systems reviewed & are unremarkable except as noted in HPI & below Constitutional: + fever, + chills, + fatigue and + malai se Eyes: no problem reported Ear, Nose, Mouth, Throat: no problem reported Respiratory: no problem reported Cardiovascular: + edema; no problem reported Gastrointestinal: no nausea, no vomiting and no problem reported Musculoskeletal: no problem reported Integumentary: + skin ulcer, + wounds and + erythema Neurologic: + loss of sensation, + numbness and + pa resthesia; no generalized weakness Psychiatric: no problem reported Physical Exam Physical Exam: lower extremity focused exam: DP/PT pulses 0/4 bilaterally. CFT is brisk to the digits. There is profound edema to the bilateral foot along with obvious Charcot neuroarthropathy. There is a rigid flatfoot deformity noted bilaterally at the level of the midfoot joint. MRI does confirm this clinical finding of neuroarthropathy, and suggests potential osteomyelitis as well. There is no deep extension of the wound to the Charcot deformity at this time. Clinically, there is erythema to the foot malodor, and drainage to this large plantar left foot ulceration. After minimal debridement at bedside, the ulcer does probe 2 cm deep at the plantar medial aspect of the calcaneocuboid joint. The ulcer along the surface of the foot is larger and measures 5 x 6 cm. Pain sensation is absent to the foot with no light touch sensation intact as well. The left lower extremity, specifically, is diffusely edematous, erythematous, and cool to cool proximal to distal. Constitutional: WD/WN, vitals as above + ill appearing and + obese Eyes: PERRL, conjunctivae normal, anicteric sclerae ENMT: external ear and nose normal, oropharynx normal Neck: trachea midline, no thyromegaly normal visual inspection Respiratory: normal respiratory effort; no respiratory distress Cardiovascular: Rate/Rhythm: regular rate and regular rhythm Chest (Breasts): Chest: normal inspection of chest Gastrointestinal (Abdomen): Inspection/Auscultation: abdomen normal to inspection Percussion/Palpation: + abdomen tender and abdomen soft Musculoskeletal: no cyanosis or clubbing, extremities motor strength 5/5 Head/Neck/Chest: normocephalic and head atraumatic Extremities: extremities normal to inspection and + foot abnormality (rigid Charcot collapse is noted bilateral midfoot, worse on the left.) Bilateral Gait: + limp Skin: + ulcer, + wound, + skin atrophy and + e rythema Neurologic: awake; no focal motor deficits Psychiatric: A+Ox3, euthymic affect Results & Data Vital Signs (Past 12 Hours) Vital Signs Temp Pulse Resp BP Pulse Ox O2 Del Method 11/14/23 07:42 36.7 C 61 18 123/74 96 Room Air
[2023-11-15 07:42] LABS: Basophils # (auto) 0.08 K/uL (0.00-0.20); Basophils % (auto) 1.2 %; Eosinophils # (auto) 0.27 K/uL (0.00-0.50); Eosinophils % (auto) 4.1 %; Hematocrit (blood only) 37.7 % (42.0-52.0); Hemoglobin 12.4 g/dl (14.0-18.0); Immature Granulocytes # (auto) 0.06 K/uL (0.01-0.20); Immature Granulocytes % (auto) 0.9 %; Lymphocytes # (auto) 1.38 K/uL (1.20-3.40); Lymphocytes % (auto) 20.9 %; Mean Corpuscular Hemoglobin 28.5 pg (25.0-34.0); Mean Corpuscular Hgb Conc 32.9 g/dL (32.0-36.0); Mean Corpuscular Volume 86.7 fL (80.0-100.0); Mean Platelet Volume 11.9 fL (9.4-12.4); Monocytes # (auto) 0.35 K/uL (0.11-0.59); Monocytes % (auto) 5.3 %; Neutrophils # (auto) 4.47 K/uL (1.40-6.50); Neutrophils % (auto) 67.6 %; Platelet Count 222 K/uL (130-400); Red Blood Count 4.35 M/uL (4.70-6.10); White Blood Count 6.61 K/ul (4.8-10.8)
[2023-11-15 07:58] LABS: BUN Creatinine Ratio 24.7 (10-20); Calcium 9.1 mg/dl (8.6-10.3); Creatinine Clr Calc Pharmacy 122.3 ml/min; Est GFR (Non-African American) 91.4 ml/min; Potassium 4.4 mmol/L (3.5-5.1)
--- NOTE | 2023-11-15 08:23 | Ultrasound Report ---
BILATERAL LOWER EXTREMITY ARTERIAL DOPPLER ULTRASOUND CLINICAL HISTORY: diabetic foot ulcers COMPARISON STUDY: Left lower extremity venous Doppler ultrasound June 04, 2019. TECHNIQUE: Color and duplex Doppler sonography of the arterial systems of the lower extremities was p erformed. Ankle to brachial indices were not obtained due to wounds. FINDINGS: Incidental note is made of thrombus within the left greater saphenous vein which extends to within 2 cm from the left common femoral vein. Thrombus was shown within this vessel on ultrasound D [id number]. This is likely chronic. Prominent left inguinal lymph node is likely benign. No jaimie vated velocities were identified within the lower extremities. There is triphasic flow throughout the right lower extremity. There is also triphasic flow within the left common femoral, superficial femo ral and popliteal arteries. There is biphasic flow within the left calf vessels. There is mild athero sclerotic plaque within the lower extremities. IMPRESSION: 1. No evidence for a hemodynamically significant stenosis within the lower extremities. Mild atherosc lerotic plaque within the lower extremities. 2. Thrombus within the left greater saphenous vein which was shown on prior ultrasound June 04 019. This is chronic. ACT 112: Negative or not required by law. Electronically signed by: Christopher Williamson M.D. 11/15/2023 8:20 AM
--- NOTE | 2023-11-15 11:05 | Hospitalist Progress Note ---
Date of Service November 15, 2023 Assessment & Plan (1) Foot osteomyelitis, left: Plan: Possible underlying osteomyelitis. Continue cefepime, day 6. Infectious disease consultation and recommendations appreciated. Daptomycin has been discontinued. Podiatry consultation noted. Possible foot surgery later this week. Foot and leg cultures are growing multiple organisms including E. coli, Klebsiella, Pasteurella, Enterobacter, and Pseudomonas (2) Diabetes mellitus, type 2: Plan: ADA diet. He denies use of basal insulin therapy and usually takes metformin, which is currently on hold. Sliding scale coverage as needed. (3) Hypertension: Plan: Stable. Continue valsartan (4) Hyperlipidemia: Plan: Stable. Continue statin therapy Plan He apparently will undergo foot surgery debridement later this week. The need for long-term IV antibiotics is yet to be determined Admission and Anticipated Discharge Date Admission Date: November 10, 2023 Subjective Alert and oriented. No distress. Podiatry and infectious disease consultations noted. He apparently will undergo foot surgery later this week per podiatry. Vascular consultation is pending. Daptomycin has been discontinued. He remains on cefepime, day 6. Multiple organisms have been isolated bilaterally including E. coli, Pasteurella, Klebsiella, Enterobacter, and Pseudomonas. Review of Systems 2 Review of Systems: Constitutional-no fever or chills ENT-no blurred vision, no double vision, no epistaxis, no sore throat Respiratory-no cough, no wheezing, no shortness of breath Cardiac-no palpitations, no chest pain, no syncope GI-no nausea, vomiting, diarrhea, melena, hematochezia -no urinary retention, no urinary incontinence, no dysuria, no hematuria Musculoskeletal-bilateral foot deformities with left foot swelling/tenderness/erythema Skin-no bruising, no rashes, no pruritus Neuro-no isolated weakness, no paresthesia Psych-no depression, no anxiety Physical Exam 2 Physical Exam: General-alert and oriented x3, no fever, no chills HEENT-head atraumatic and normocephalic, pupils equal and reactive to light, extraocular muscles intact Neck-no lymphadenopathy or thyromegaly, trachea midline Chest-clear to auscultation. No rales, wheezing or rhonchi Cardiac-regular rate and rhythm, normal S1 and S2 Abdomen-normal bowel sounds, no hepatosplenomegaly Extremities-bilateral Charcot foot deformities. Left foot with dorsal erythema swelling and tenderness Neuro-cranial nerves II through XII intact, motor and sensory function within normal limits, strength symmetrical, no focal deficits Psych-normal affect, normal mood Results & Data Results & Data Vital Signs (Past 12 Hours) Vital Signs Temp Pulse Resp BP Pulse Ox O2 Del Method 11/15/23 07:36 36.6 C 61 18 122/73 96 Room Air Laboratory Results 11/15/23 07:02 11/15/23 07:02 PG Care Time/CCT Total # of Minutes Spent Total Time Spent with Patient: Total time spent is greater than 50% in coordination of care (as documented) at patient's floor/unit and/or counseling patient: Coding Level of Care Code 64056 SUB INP/OBS CARE 3/50MIN Diagnoses Foot osteomyelitis, left M86.9 Type 2 diabetes mellitus with foot ulcer, without long-term current use of insulin E11.621; L97.509 Diabetes mellitus long-term insulin use: without long-term use Diabetes mellitus complication status: with skin complications Diabetes mellitus complication detail: with foot ulcer Hypertension I10 Hyperlipidemia E78.5 (2) Diabetes mellitus, type 2 Diabetes mellitus long-term insulin use: without long-term use Diabetes mellitus complication status: with skin complications Diabetes mellitus complication detail: with foot ulcer Qualified Code(s): E11.621 - Type 2 diabetes mellitus with foot ulcer; L97.509 - Non-pressure chronic ulcer of other part of unspecified foot with unspecified severity
--- NOTE | 2023-11-15 17:19 | Vascular Medicine Consultation ---
Date of Consultation November 15, 2023 Assessment & Plan (1) Diabetic ulcer of left foot: Possible early osteomyelitis Diabetic foot ulcer of right lower extremity 2. Type 2 diabetes with peripheral neuropathy and Charcot arthropathy 3. Chronic venous insufficiency with venous ulcer 4. Hypertension Reviewed patient's recent arterial duplex. Has multiphasic waveforms throughout both bilateral lower extremity arterial systems with patent infrapopliteal vessels. On exam has patent popliteal, DP pulses bilaterally. Overall patient's bilateral lower extremities appear well-perfused and feel arterial perfusion should be adequate to heal current wounds or surgical wounds if needed. Will obtain toe pressures as an outpatient to confirm no significant changes from 08/2019. Patient has evidence of longstanding left lower extremity chronic venous insufficiency with recurrent venous ulcers. On arterial duplex had chronic left GSV thrombus. Suspect has significant pathologic saphenous reflux and may benefit from venous ablation to reduce leg swelling to prevent recurrent rosales wounds. Will obtain venous reflux ultrasound as an outpatient we will discuss options at that time. No plans for additional vascular testing/procedures as an inpatient. Outpatient vascular follow-up to be arranged. History of Present Illness Attending Physician: Maico Hoffman MD History of Present Illness Mr. Regan is a 58-year-old man seen today in hospital for bilateral diabetic foot ulcerations and suspected PAD. Prior medical history remarkable for type 2 diabetes complicated by peripheral neuropathy and Charcot arthropathy bilaterally. Also with longstanding venous insufficiency/varicose veins (since 20s), hypertension, dyslipidemia and obstructive sleep apnea. Never smoker. No history of prior vascular procedures. Did undergo left fifth toe amputation in the setting of nonhealing ulcer years ago. 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 Denies foot pain with neuropathy. Denies any symptoms suggestive of claudication. Wounds present for weeks. Treated at wound care center starting 11/10/2023 at that time left foot noted to be malodorous and there was concern for sepsis and patient referred to [facility]. Blood cultures negative. Has been treated with broad-spectrum antibiotics initially daptomycin/cefepime. Also seen by podiatry Dr. Renteria. Recent vascular testing: Arterial duplex 10/2023: Right leg triphasic waveforms throughout with three- vessel distal runoff. Left lower extremity triphasic waveforms to popliteal, multiphasic infrapopliteal vessels. HOMA/TBI 08/2019: Right 1.18 TBI 1.0 (139), left 1.24 TBI 0.83 (116) Allergies Allergy/AdvReac Type Severity Reaction Status Date / Time lisinopril AdvReac Mild Cough Verified 11/10/23 10:00 Home Medications Medication Instructions Recorded Confirmed Type cyanocobalamin (vitamin B-12) 500 500 mcg PO QAM 01/22/19 11/10/23 History mcg tablet pen needle, diabetic 31 gauge x #200 ea 01/24/19 05/16/23 Rx 5/16" (Sure-Fine Pen [place]) multivitamin 1 tab PO QAM 05/05/21 11/10/23 History cholecalciferol (vitamin D3) 3,000 units PO QAM 09/06/21 11/10/23 History valsartan 40 mg tablet 40 mg PO QAM #90 tabs 04/03/23 11/10/23 Rx blood-glucose sensor (FreeStyle #6 ea 05/26/23 05/26/23 Rx Mannie 3 Sensor device) metformin 500 mg tablet 500 mg PO BID #180 tabs 07/17/23 11/10/23 Rx simvastatin 20 mg tablet 20 mg PO QPM #90 tabs 10/24/23 11/10/23 Rx insulin glargine 100 unit/mL (3 30 unit subcut QAM 11/08/23 11/10/23 History mL) subcutaneous pen (Lantus Solostar U-100 Insulin) Vitamin C 1 tab PO QAM 11/10/23 11/10/23 History amoxicillin 875 mg tablet 875 mg PO BID 11/10/23 11/10/23 History blood sugar diagnostic 11/10/23 11/10/23 History dapagliflozin propanediol 10 mg 10 mg PO QAM 11/10/23 11/10/23 History tablet (Farxiga) semaglutide 0.25 mg or 0.5 mg (2 0.5 mg subcut UD 11/10/23 11/10/23 History mg/3 mL) subcutaneous pen injector (Ozempic) Patient History Medical History Varicose vein of leg LEFT Sleep apnea had sx, no issues now Surgical History History of colonoscopy History of anesthesia reaction difficulty waking History of tonsillectomy and adenoidectomy H/O sinus surgery S/P unilateral inguinal hernia repair History of amputation of toe Family History Aunt Breast cancer Grandfather Diabetes CHF (congestive heart failure) Hyperglycemia Stroke Grandmother Lung cancer Uterine cancer Grandfather (Paternal) Family history of diabetes mellitus Other No family history of adverse response to anesthesia Social History Smoking Status: Never smoker Second Hand Exposure: No; Do You Dip or Chew Tobacco: No; Hx Alcohol Use: No Hx Substance Use: No Preferred Language: Yoruba Communication Ability: Effective Clinical Athletic Instructor Required: No Beliefs That Will Affect Care: None marital status: Current Living Situation: Family Current Living Situation Comment: Mother current occupational status: employed Feels Safe at Home: Yes Childhood Exposure to Second-Hand Smoke: Yes Diet: other Diet Comment: golo caffeine: Yes during the past year weight has: remained stable Dental Care, Regularly: No Physical Activity Frequency: Does not Exercise Seatbelt Use: never Assistive Devices: None Review of Systems Review of Systems: All systems reviewed & are unremarkable except as noted in HPI & below Physical Exam Physical Exam: General: Comfortable, no acute distress Eyes: Sclerae anicteric Lungs: Clear to auscultation bilaterally Cardiac: Regular rate and rhythm, no murmurs Abdomen: Soft, nontender Neuro: Nonfocal Psych: Alert orient x3, normal affect and mood Extremities/Vascular: -- 2+ radial bilaterally -- 2+ popliteal pulses bilaterally -- 2+ DP pulses bilaterally. Sluggish capillary refill in left first through fourth toes. Post fifth toe amputation -- 1+ left lower extremity edema with chronic hyperpigmentation/stasis dermatitis and scaling. Small areas of subcentimeter skin breakdown. -- Ulcer: Large superficial ulcer over p lantar aspect of midfoot without surrounding erythema, drainage. Results & Data Vital Signs (Past 12 Hours) Vital Signs Temp Pulse Resp BP Pulse Ox O2 Del Method 11/15/23 15:19 97.3 F L 50 L 16 118/74 98 Room Air 11/15/23 07:36 97.9 F 61 18 122/73 96 Room Air PG Care Time/CCT Total # of Minutes Spent Total Time Spent with Patient: Total time spent is greater than 50% in coordination of care (as documented) at patient's floor/unit and/or counseling patient: Coding Level of Care Code 42417 IN/OBS CONSULT LVL 4,60M Diagnoses Diabetic ulcer of left midfoot associated with type 2 diabetes mellitus, with fat layer exposed E11.621; L97.422 Diabetic foot ulcer location: midfoot Diabetes mellitus type: type 2 Non-pressure ulcer stage: with fat layer exposed (1) Diabetic ulcer of left foot Diabetic foot ulcer location: midfoot Diabetes mellitus type: type 2 Non- pressure ulcer stage: with fat layer exposed Qualified Code(s): E11.621 - Type 2 diabetes mellitus with foot ulcer; L97.422 - Non-pressure chronic ulcer of left heel and midfoot with fat layer exposed
--- NOTE | 2023-11-15 22:03 | Podiatry Progress Note ---
Date of Service November 15, 2023 Assessment & Plan (1) Osteomyelitis: (2) Diabetes mellitus, type 2: (3) Abnormal ankle brachial index (HOMA): (4) Diabetic ulcer of right foot: (5) Diabetic ulcer of left foot: (6) Charcot's joint of foot in type 2 diabetes mellitus: Plan Patient examined and evaluated. - Plan for surgical I&D, bone biopsy on Monday. - this bilateral Charcot neuroarthropathy does suggest that he has adequate perfusion for healing of this wound, though with the extensive congestion and atrophic changes of his left lower extremity, specifically, it will be helpful to see Dr. Boone's input regarding his blood flow overall. He was supposed to see him in an outpatient and appreciate Dr. Boone being able to see him here in this hospitalization. - we did again discuss that limb salvage, for this level of deformity, will require significant buy-in from him. - Charcot reconstructions are major surgeries with extensive and prolonged periods of nonweightbearing and disability. I did discuss that, frankly, with Charcot and potential osteomyelitis, a much more definitive procedure would be a below the knee amputation. He would still prefer to attempt aggressive wound care and surgical debridement. - All questions were answered and we discussed this surgical intervention via incision and drainage with bone biopsy today. Patient is amenable to this and will plan for Monday. Admission and Anticipated Discharge Date Admission Date: November 10, 2023 Subjective patient seen at bedside. No new concerns noted. He continues to state that he is feeling better with the use of antibiotics here on this admission but does still have these plantar ulcerations. He is insistent that the Charcot deformity is not that bad and that he gets by by wearing more supportive shoes. He, again, states that these more supportive shoes include crocs and slip on or lace up Keen's. He denies any new or worsening signs or symptoms of infection. He is most concerned with getting back to work and being able to make a living. He is concerned about the cost of this hospitalization and the missed time. Review of Systems Constitutional: + fever, + chills, + fatigue and + malai se Eyes: no problem reported Ear, Nose, Mouth, Throat: no problem reported Respiratory: no problem reported Cardiovascular: + edema; no problem reported Gastrointestinal: no nausea, no vomiting and no problem reported Musculoskeletal: no problem reported Integumentary: + skin ulcer, + wounds and + erythema Neurologic: + loss of sensation, + numbness and + pa resthesia; no generalized weakness Psychiatric: no problem reported Physical Exam Physical Exam: lower extremity focused exam: DP/PT pulses 0/4 bilaterally. CFT is brisk to the digits. There is profound edema to the bilateral foot along with obvious Charcot neuroarthropathy. There is a rigid flatfoot deformity noted bilaterally at the level of the midfoot joint. MRI does confirm this clinical finding of neuroarthropathy, and suggests potential osteomyelitis as well. There is no deep extension of the wound to the Charcot deformity at this time. Clinically, there is erythema to the foot malodor, and drainage to this large plantar left foot ulceration. After minimal debridement at bedside, the ulcer does probe 2 cm deep at the plantar medial aspect of the calcaneocuboid joint. The ulcer along the surface of the foot is larger and measures 5 x 6 cm. Pain sensation is absent to the foot with no light touch sensation intact as well. The left lower extremity, specifically, is diffusely edematous, erythematous, and cool to cool proximal to distal. Constitutional: WD/WN, vitals as above + ill appearing and + obese Eyes: PERRL, conjunctivae normal, anicteric sclerae ENMT: external ear and nose normal, oropharynx normal Neck: trachea midline, no thyromegaly normal visual inspection Respiratory: normal respiratory effort; no respiratory distress Cardiovascular: Rate/Rhythm: regular rate and regular rhythm Chest (Breasts): Chest: normal inspection of chest Gastrointestinal (Abdomen): Inspection/Auscultation: abdomen normal to inspection Percussion/Palpation: + abdomen tender and abdomen soft Musculoskeletal: no cyanosis or clubbing, extremities motor strength 5/5 Head/Neck/Chest: normocephalic and head atraumatic Extremities: extremities normal to inspection and + foot abnormality (rigid Charcot collapse is noted bilateral midfoot, worse on the left.) Gait: + limp Skin: + ulcer, + wound, + skin atrophy and + e rythema Neurologic: awake; no focal motor deficits Psychiatric: A+Ox3, euthymic affect Results & Data Results & Data Vital Signs (Past 12 Hours) Vital Signs Temp Pulse Pulse Resp BP Pulse Ox O2 Del Method 11/15/23 19:44 36.8 C 63 16 141/78 H 98 Room Air 11/15/23 15:19 36.3 C L 50 L 16 118/74 98 Room Air (1) Osteomyelitis Laterality: unspecified laterality Osteomyelitis location: foot Osteomyelitis type: unspecified type Qualified Code(s): M86.9 - Osteomyelitis, unspecified (2) Diabetes mellitus, type 2 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: without termite renewal inspector use Diabetes mellitus complication status: with skin complications Diabetes mellitus complication detail: with foot ulcer Qualified Code(s): E11.621 - Type 2 diabetes mellitus with foot ulcer; L97.509 - Non-pressure chronic ulcer of other part of unspecified foot with unspecified severity (4) Diabetic ulcer of right foot Diabetic foot ulcer location: midfoot Diabetes mellitus type: type 2 Non- pressure ulcer stage: with fat layer exposed Qualified Code(s): E11.621 - Type 2 diabetes mellitus with foot ulcer; L97.412 - Non-pressure chronic ulcer of right heel and midfoot with fat layer exposed (5) Diabetic ulcer of left foot Diabetic foot ulcer location: midfoot Diabetes mellitus type: type 2 Non- pressure ulcer stage: with fat layer exposed Qualified Code(s): E11.621 - Type 2 diabetes mellitus with foot ulcer; L97.422 - Non-pressure chronic ulcer of left heel and midfoot with fat layer exposed
[2023-11-16 06:28] LABS: Calcium 9.2 mg/dl (8.6-10.3); Creatinine Clr Calc Pharmacy 113.7 ml/min; Est GFR (African American) 97.1 ml/min; Est GFR (Non-African American) 83.8 ml/min; Potassium 4.7 mmol/L (3.5-5.1)
[2023-11-16 06:31] LABS: Basophils # (auto) 0.07 K/uL (0.00-0.20); Eosinophils # (auto) 0.24 K/uL (0.00-0.50); Eosinophils % (auto) 3.5 %; Hematocrit (blood only) 39.6 % (42.0-52.0); Hemoglobin 12.9 g/dl (14.0-18.0); Immature Granulocytes # (auto) 0.08 K/uL (0.01-0.20); Immature Granulocytes % (auto) 1.2 %; Lymphocytes # (auto) 1.31 K/uL (1.20-3.40); Mean Corpuscular Hemoglobin 28.6 pg (25.0-34.0); Mean Corpuscular Hgb Conc 32.6 g/dL (32.0-36.0); Mean Corpuscular Volume 87.8 fL (80.0-100.0); Mean Platelet Volume 11.5 fL (9.4-12.4); Monocytes # (auto) 0.43 K/uL (0.11-0.59); Monocytes % (auto) 6.2 %; Neutrophils # (auto) 4.76 K/uL (1.40-6.50); Neutrophils % (auto) 69.1 %; Platelet Count 216 K/uL (130-400); RDW Coefficient of Variation 12.9 % (11.5-14.5); RDW Standard Deviation 41.3 fL (36.4-46.3); Red Blood Count 4.51 M/uL (4.70-6.10); White Blood Count 6.89 K/ul (4.8-10.8)
--- NOTE | 2023-11-16 10:23 | Podiatry Progress Note ---
Date of Service November 16, 2023 Assessment & Plan (1) Osteomyelitis: (2) Diabetes mellitus, type 2: (3) Abnormal ankle brachial index (HOMA): (4) Diabetic ulcer of right foot: (5) Diabetic ulcer of left foot: (6) Charcot's joint of foot in type 2 diabetes mellitus: Plan Patient examined and evaluated. - Bandage performed consisting of aquacel ag, 4x4 gauze, and RODOLFO bandage - Plan for surgical I&D, bone biopsy on Monday at noon. NPO at midnight. - this bilateral Charcot neuroarthropathy does suggest that he has adequate perfusion for healing of this wound, though with the extensive congestion and atrophic changes of his left lower extremity, specifically, it will be helpful to see Dr. Boone's input regarding his blood flow overall. He was supposed to see him in an outpatient and appreciate Dr. Boone being able to see him here in this hospitalization. - we did again discuss that limb salvage, for this level of deformity, will require significant buy-in from him. - Charcot reconstructions are major surgeries with extensive and prolonged periods of nonweightbearing and disability. I did discuss that, frankly, with Charcot and potential osteomyelitis, a much more definitive procedure would be a below the knee amputation. He would still prefer to attempt aggressive wound care and surgical debridement. - All questions were answered and we discussed this surgical intervention via incision and drainage with bone biopsy today. Patient is amenable to this and will plan for Monday. Admission and Anticipated Discharge Date Admission Date: November 10, 2023 Subjective patient seen at bedside. No new concerns noted. He continues to state that he is feeling better with the use of antibiotics here on this admission but does still have these plantar ulcerations. He is insistent that the Charcot deformity is not that bad and that he gets by by wearing more supportive shoes. He, again, states that these more supportive shoes include crocs and slip on or lace up Keen's. He denies any new or worsening signs or symptoms of infection. He is most concerned with getting back to work and being able to make a living. He is concerned about the cost of this hospitalization and the missed time. Review of Systems Constitutional: + fever, + chills, + fatigue and + malai se Eyes: no problem reported Ear, Nose, Mouth, Throat: no problem reported Respiratory: no problem reported Cardiovascular: + edema; no problem reported Gastrointestinal: no nausea, no vomiting and no problem reported Musculoskeletal: no problem reported Integumentary: + skin ulcer, + wounds and + erythema Neurologic: + loss of sensation, + numbness and + pa resthesia; no generalized weakness Psychiatric: no problem reported Physical Exam Physical Exam: General-alert and oriented x3, no fever, no chills HEENT-head atraumatic and normocephalic, pupils equal and reactive to light, extraocular muscles intact Neck-no lymphadenopathy or thyromegaly, trachea midline Chest-clear to auscultation. No rales, wheezing or rhonchi Cardiac-regular rate and rhythm, normal S1 and S2 Abdomen-normal bowel sounds, no hepatosplenomegaly Extremities-bilateral Charcot foot deformities. Left foot with dorsal erythema swelling and tenderness Neuro-cranial nerves II through XII intact, motor and sensory function within normal limits, strength symmetrical, no focal deficits Psych-normal affect, normal mood Results & Data Results & Data Vital Signs (Past 12 Hours) Vital Signs Temp Pulse Resp BP Pulse Ox O2 Del Method 11/16/23 07:29 36.3 C L 58 L 18 113/71 98 Room Air (1) Osteomyelitis Laterality: unspecified laterality Osteomyelitis location: foot Osteomyelitis type: unspecified type Qualified Code(s): M86.9 - Osteomyelitis, unspecified (2) Diabetes mellitus, type 2 Diabetes mellitus complication detail: with foot ulcer Diabetes mellitus complication status: with skin complications 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: without real estate lawyer use Qualified Code(s): E11.621 - Type 2 diabetes mellitus with foot ulcer; L97.509 - Non-pressure chronic ulcer of other part of unspecified foot with unspecified severity (4) Diabetic ulcer of right foot Diabetes mellitus type: type 2 Diabetic foot ulcer location: midfoot Non- pressure ulcer stage: with fat layer exposed Qualified Code(s): E11.621 - Type 2 diabetes mellitus with foot ulcer; L97.412 - Non-pressure chronic ulcer of right heel and midfoot with fat layer exposed (5) Diabetic ulcer of left foot Diabetes mellitus type: type 2 Diabetic foot ulcer location: midfoot Non- pressure ulcer stage: with fat layer exposed Qualified Code(s): E11.621 - Type 2 diabetes mellitus with foot ulcer; L97.422 - Non-pressure chronic ulcer of left heel and midfoot with fat layer exposed
[2023-11-16] MEDS ORDERED: MIDAZOLAM HCL 1 MG/ML 2ML VIAL ONE ×2 (12:30→13:19)
[2023-11-16] MEDS ORDERED: LIDOCAINE 2% 2 ML VIAL/AMP(20MG/ML) INFIL ONE (12:30)
[2023-11-16] MEDS ORDERED: fentaNYL citrate PF 100 MCG/2 ML VIAL ONE (12:30)
[2023-11-16] MEDS ORDERED: PROPOFOL IV EMULSION 10 MG/ML 20 ML VIAL IV ONE (12:30)
--- NOTE | 2023-11-16 15:01 | Hospitalist Progress Note ---
Date of Service November 16, 2023 Assessment & Plan (1) Foot osteomyelitis, left: Plan: Possible underlying osteomyelitis. Continue cefepime, day 7. Infectious disease consultation and recommendations appreciated. Daptomycin has been discontinued. Podiatry consultation noted. Foot surgery will be undertaken tomorrow, November 16 Foot and leg cultures are growing multiple organisms including E. coli, Klebsiella, Pasteurella, Enterobacter, and Pseudomonas (2) Diabetes mellitus, type 2: Plan: ADA diet. He denies use of basal insulin therapy and usually takes metformin, which is currently on hold. Sliding scale coverage as needed. Controlled (3) Hypertension: Plan: Stable. Continue valsartan (4) Hyperlipidemia: Plan: Stable. Continue statin therapy Plan Foot surgery will be undertaken tomorrow, November 16. He may need ongoing IV antibiotics at the time of discharge. Await infectious disease recommendations. Anticipate hospitalization through the weekend. Admission and Anticipated Discharge Date Admission Date: November 10, 2023 Subjective Alert and oriented. No distress. He has been seen by podiatry and vascular surgery. Surgical debridement of the foot will be undertaken tomorrow, November 16. Vascular evaluation seems to be satisfactory for adequate healing postoperatively. Infectious disease consultation noted. Cultures of both feet and the left leg reveal a combination of E. coli, Klebsiella, Pasteurella, Enterobacter, and Pseudomonas. He remains on cefepime, day 7. Review of Systems 2 Review of Systems: Constitutional-no fever or chills ENT-no blurred vision, no double vision, no epistaxis, no sore throat Respiratory-no cough, no wheezing, no shortness of breath Cardiac-no palpitations, no chest pain, no syncope GI-no nausea, vomiting, diarrhea, melena, hematochezia -no urinary retention, no urinary incontinence, no dysuria, no hematuria Musculoskeletal-bilateral foot deformities with left foot swelling/tenderness/erythema Skin-no bruising, no rashes, no pruritus Neuro-no isolated weakness, no paresthesia Psych-no depression, no anxiety Physical Exam 2 Physical Exam: General-alert and oriented x3, no fever, no chills HEENT-head atraumatic and normocephalic, pupils equal and reactive to light, extraocular muscles intact Neck-no lymphadenopathy or thyromegaly, trachea midline Chest-clear to auscultation. No rales, wheezing or rhonchi Cardiac-regular rate and rhythm, normal S1 and S2 Abdomen-normal bowel sounds, no hepatosplenomegaly Extremities-bilateral Charcot foot deformities. Left foot with dorsal erythema swelling and tenderness Neuro-cranial nerves II through XII intact, motor and sensory function within normal limits, strength symmetrical, no focal deficits Psych-normal affect, normal mood Results & Data Results & Data Vital Signs (Past 12 Hours) Vital Signs Temp Pulse Resp BP Pulse Ox O2 Del Method 11/16/23 07:29 36.3 C L 58 L 18 113/71 98 Room Air Laboratory Results 11/16/23 05:48 11/16/23 05:48 PG Care Time/CCT Total # of Minutes Spent Total Time Spent with Patient: Total time spent is greater than 50% in coordination of care (as documented) at patient's floor/unit and/or counseling patient: Coding Level of Care Code 72658 SUB INP/OBS CARE 2/35MIN Diagnoses Foot osteomyelitis, left M86.9 Type 2 diabetes mellitus with foot ulcer, without long-term current use of insulin E11.621; L97.509 Diabetes mellitus chcf insulin use: without computer terminal operator use Diabetes mellitus complication status: with skin complications Diabetes mellitus complication detail: with foot ulcer Hypertension I10 Hyperlipidemia E78.5 (2) Diabetes mellitus, type 2 Diabetes mellitus chcf insulin use: without chcf use Diabetes mellitus complication status: with skin complications Diabetes mellitus complication detail: with foot ulcer Qualified Code(s): E11.621 - Type 2 diabetes mellitus with foot ulcer; L97.509 - Non-pressure chronic ulcer of other part of unspecified foot with unspecified severity
[2023-11-17 06:33] LABS: Basophils # (auto) 0.09 K/uL (0.00-0.20); Basophils % (auto) 1.2 %; Eosinophils # (auto) 0.25 K/uL (0.00-0.50); Eosinophils % (auto) 3.4 %; Hematocrit (blood only) 39.1 % (42.0-52.0); Hemoglobin 12.9 g/dl (14.0-18.0); Immature Granulocytes % (auto) 1.4 %; Lymphocytes # (auto) 1.26 K/uL (1.20-3.40); Lymphocytes % (auto) 17.1 %; Mean Corpuscular Hemoglobin 28.7 pg (25.0-34.0); Mean Corpuscular Volume 87.1 fL (80.0-100.0); Mean Platelet Volume 11.2 fL (9.4-12.4); Monocytes # (auto) 0.42 K/uL (0.11-0.59); Monocytes % (auto) 5.7 %; Neutrophils # (auto) 5.26 K/uL (1.40-6.50); Neutrophils % (auto) 71.2 %; Platelet Count 215 K/uL (130-400); RDW Coefficient of Variation 12.9 % (11.5-14.5); RDW Standard Deviation 40.7 fL (36.4-46.3); Red Blood Count 4.49 M/uL (4.70-6.10); White Blood Count 7.38 K/ul (4.8-10.8)
[2023-11-17 06:50] LABS: BUN Creatinine Ratio 24.8 (10-20); Creatinine Clr Calc Pharmacy 104.3 ml/min; Est GFR (African American) 87.5 ml/min; Est GFR (Non-African American) 75.5 ml/min; Potassium 4.4 mmol/L (3.5-5.1)
[2023-11-17] MEDS ORDERED: Nursing to Pharmacy Communication SCH ×2 (07:15→15:15)
[2023-11-17] MEDS: INSULIN ASPART PER UNIT CHARGE SC SCH ×2 (07:15→17:28)
--- NOTE | 2023-11-17 12:20 | History & Physical Bridge Note ---
Date of Service November 17, 2023 History & Physical Bridge Note I have examined the patient, reviewed the History & Physical and in the interval since the performance of the History & Physical I have noted the following changes of clinical significance: no changes noted. Plan for left foot I&D with bone biopsy. Consent was obtained. Will plan further treatment based on outcomes today.
--- NOTE | 2023-11-17 12:21 | Hospitalist Progress Note ---
Date of Service November 17, 2023 Assessment & Plan (1) Foot osteomyelitis, left: Plan: Possible underlying osteomyelitis. Continue cefepime, day 8. Infectious disease consultation and recommendations appreciated. Daptomycin has been discontinued. Podiatry consultation noted. Foot surgery will be undertaken later today, November 16 Foot and leg cultures are growing multiple organisms including E. coli, Klebsiella, Pasteurella, Enterobacter, and Pseudomonas (2) Diabetes mellitus, type 2: Plan: ADA diet. He denies use of basal insulin therapy and usually takes metformin, which is currently on hold. Sliding scale coverage as needed. Controlled (3) Hypertension: Plan: Stable. Continue valsartan (4) Hyperlipidemia: Plan: Stable. Continue statin therapy Plan Foot surgery will be undertaken today, November 16. He may need ongoing IV antibiotics at the time of discharge. Await infectious disease recommendations. Anticipate hospitalization through the weekend. Admission and Anticipated Discharge Date Admission Date: November 10, 2023 Subjective Alert and oriented. No distress. Vital signs stable. Glucose 133. He is awaiting surgical intervention on his left foot later today, November 16 Review of Systems 2 Review of Systems: Constitutional-no fever or chills ENT-no blurred vision, no double vision, no epistaxis, no sore throat Respiratory-no cough, no wheezing, no shortness of breath Cardiac-no palpitations, no chest pain, no syncope GI-no nausea, vomiting, diarrhea, melena, hematochezia -no urinary retention, no urinary incontinence, no dysuria, no hematuria Musculoskeletal-bilateral foot deformities with left foot swelling/tenderness/erythema Skin-no bruising, no rashes, no pruritus Neuro-no isolated weakness, no paresthesia Psych-no depression, no anxiety Physical Exam 2 Physical Exam: General-alert and oriented x3, no fever, no chills HEENT-head atraumatic and normocephalic, pupils equal and reactive to light, extraocular muscles intact Neck-no lymphadenopathy or thyromegaly, trachea midline Chest-clear to auscultation. No rales, wheezing or rhonchi Cardiac-regular rate and rhythm, normal S1 and S2 Abdomen-normal bowel sounds, no hepatosplenomegaly Extremities-bilateral Charcot foot deformities. Left foot with dorsal erythema swelling and tenderness Neuro-cranial nerves II through XII intact, motor and sensory function within normal limits, strength symmetrical, no focal deficits Psych-normal affect, normal mood Results & Data Results & Data Vital Signs (Past 12 Hours) Vital Signs Temp Pulse Resp BP BP Pulse Ox O2 Del Method 11/17/23 12:08 36.5 C 61 20 157/88 H 96 Room Air 11/17/23 07:55 36.4 C L 61 18 117/75 96 Room Air Laboratory Results 11/17/23 05:57 11/17/23 05:57 PG Care Time/CCT Total # of Minutes Spent Total Time Spent with Patient: Total time spent is greater than 50% in coordination of care (as documented) at patient's floor/unit and/or counseling patient: Coding Level of Care Code 22168 SUB INP/OBS CARE 2/35MIN Diagnoses Foot osteomyelitis, left M86.9 Type 2 diabetes mellitus with foot ulcer, without long-term current use of insulin E11.621; L97.509 Diabetes mellitus intermediate insulin use: without laborer marine terminal use Diabetes mellitus complication status: with skin complications Diabetes mellitus complication detail: with foot ulcer Hypertension I10 Hyperlipidemia E78.5 (2) Diabetes mellitus, type 2 Diabetes mellitus intermediate insulin use: without intermediate use Diabetes mellitus complication status: with skin complications Diabetes mellitus complication detail: with foot ulcer Qualified Code(s): E11.621 - Type 2 diabetes mellitus with foot ulcer; L97.509 - Non-pressure chronic ulcer of other part of unspecified foot with unspecified severity
--- NOTE | 2023-11-17 12:34 | Anesthesiology Consultation ---
Date of Service November 17, 2023 Assessment & Plan Chart Review Chart Review: Acceptable Risk for Surgery and Patient NOT seen in Pre Admission Testing Consults Requested none ASA ASA3 Proposed Anesthesia Anesthesia Type: MAC Risk / Benefits Reviewed With: PT / POA / Parent / Guardian, Accepts Plan and Informed Consent Obtained History Surgery Operation Date: 11/16/23 07:00 Proposed Procedures p Left Foot Incision and Drainage with Bone Biopsy - David Renteria DPM Operation Date: 11/17/23 12:45 Proposed Procedures p Left Foot Incision and Drainage with Bone Biopsy - David Renteria DPM Height/Weight Height: 6 ft 2 in Weight: 120.338 kg Allergies Allergy/AdvReac Type Severity Reaction Status Date / Time lisinopril AdvReac Mild Cough Verified 11/10/23 10:00 Medications Home Medications Medication Instructions Recorded Confirmed Last Taken cyanocobalamin (vitamin B-12) 500 500 mcg PO QAM 01/22/19 11/10/23 11/10/23 mcg tablet pen needle, diabetic 31 gauge x #200 ea 01/24/19 05/16/23 Unknown 11/01" (Sure-Fine Pen [place]) multivitamin 1 tab PO QAM 05/05/21 11/10/23 11/10/23 cholecalciferol (vitamin D3) 3,000 units PO QAM 09/06/21 11/10/23 11/10/23 valsartan 40 mg tablet 40 mg PO QAM #90 tabs 04/03/23 11/10/23 11/10/23 blood-glucose sensor (FreeStyle #6 ea 05/26/23 05/26/23 Unknown Mannie 3 Sensor device) metformin 500 mg tablet 500 mg PO BID #180 tabs 07/17/23 11/10/23 11/10/23 simvastatin 20 mg tablet 20 mg PO QPM #90 tabs 10/24/23 11/10/23 Unknown insulin glargine 100 unit/mL (3 30 unit subcut QAM 11/08/23 11/10/23 11/10/23 mL) subcutaneous pen (Lantus Solostar U-100 Insulin) Vitamin C 1 tab PO QAM 11/10/23 11/10/23 11/10/23 amoxicillin 875 mg tablet 875 mg PO BID 11/10/23 11/10/23 11/10/23 blood sugar diagnostic 11/10/23 11/10/23 Unknown dapagliflozin propanediol 10 mg 10 mg PO QAM 11/10/23 11/10/23 11/10/23 tablet (Farxiga) semaglutide 0.25 mg or 0.5 mg (2 0.5 mg subcut UD 11/10/23 11/10/23 2 Weeks Ago mg/3 mL) subcutaneous pen injector ~10/27/23 (Ozempic) Active Medications Generic Name Dose Route Start Last Admin Trade Name Freq PRN Reason Stop Dose Admin Heparin Sodium (Porcine) 5,000 units 11/11/23 21:00 11/17/23 08:44 Heparin Sod 5,000 Unit/0.5 Ml Vial SQ 12/11/23 20:59 Not Given Q12 RADHA Cefepime HCl 2,000 mg/ Syringe 20 mls @ 5 mls/min 11/10/23 23:45 11/17/23 07:32 IV 12/22/23 23:44 5 mls/min Q8H RADHA Administration Protocol Insulin Aspart 0 units 11/17/23 07:10 11/17/23 07:15 Insulin Aspart Per Unit Charge SC 12/10/23 20:39 Not Given Q6 RADHA Valsartan 40 mg 11/11/23 09:00 11/17/23 08:40 Valsartan 80 Mg Tab PO 12/11/23 08:59 40 mg QAM RADHA Administration NPO Date Last Intake of Fluids: 11/16/23 Time Last Intake of Fluids: 21:00 Last Intake of Fluids Comment: sip water with meds this am 0600 Date Last Intake of Solids: 11/16/23 Time Last Intake of Solids: 21:00 Past Medical History Medical History Hyperlipemia Hypertension Type 2 diabetes mellitus Varicose vein of leg LEFT Sleep apnea had sx, no issues now Exercise / Class Metabolic Activity III < 4 Walking/Shop/Light housework Past Family History Family History Aunt Breast cancer Grandfather Diabetes CHF (congestive heart failure) Hyperglycemia Stroke Grandmother Lung cancer Uterine cancer Grandfather (Paternal) Family history of diabetes mellitus Other No family history of adverse response to anesthesia Past Surgical History Surgical History History of colonoscopy History of anesthesia reaction difficulty waking History of tonsillectomy and adenoidectomy H/O sinus surgery S/P unilateral inguinal hernia repair History of amputation of toe Past Anesthesia History No Hx of Anesthesia Complications and No Family Hx of Anesthesia Complications History of PONV No Hx of PONV and No Hx of Motion Sickness Social History Smoking Status: Never smoker tobacco type: cigarettes and smokeless tobacco Do You Dip or Chew Tobacco: No Hx Alcohol Use: No alcohol intake frequency: holidays/special occasions only Hx Substance Use: No substance use type: does not use Physical Exam Vital Signs Last Vital Signs Temp 36.5 C 11/17/23 12:08 Pulse 61 11/17/23 12:08 Resp 20 11/17/23 12:08 BP 157/88 H 11/17/23 12:08 Pulse Ox 96 11/17/23 12:08 O2 Del Method Room Air 11/17/23 12:08 Constitutional + obese ENMT Mouth: + dentition abnormality and + edentulous Thyromental Distance: > or= 3.5 Finger Breadths Mallampati Class: II Neck normal visual inspection, trachea midline and + facial hair; neck extension not limited Respiratory normal respiratory effort Auscultation: lungs clear to auscultation bilaterally Cardiovascular Rate/Rhythm: regular rate and regular rhythm Heart Sounds: no murmur Vessels: no carotid bruit Musculoskeletal Spine: normal cervical ROM and no pain with cervical ROM Extremities: extremities normal to inspection; full ROM of extremities Neurologic moves all extremities Motor/Sensory: + sensory deficit (diabetic PN) Psychiatric Orientation: alert and oriented x 3 Testing Laboratory Results 11/17/23 05:57 11/17/23 05:57 PT 13.5 Seconds (9.0-12.0) H 11/10/23 13:12 INR 1.3 (0.9-1.1) H 11/10/23 13:12 APTT 27 Seconds (21-31) 11/10/23 13:12 Hemoglobin A1c 6.6 % (4.5-5.6) H 11/11/23 08:08 Urine Color Yellow 11/10/23 17:49 Urine Appearance Clear (Clear) 11/10/23 17:49 Urine pH 5.5 (4.5-7.5) 11/10/23 17:49 Ur Specific [place] 1.015 (1.000-1.030) 11/10/23 17:49 Urine Protein Negative (Negative) 11/10/23 17:49 Urine Glucose (UA) 2+ (Negative) H 11/10/23 17:49 Urine Ketones 1+ (Negative) H 11/10/23 17:49 Urine Nitrite Negative (Negative) 11/10/23 17:49 Ur Leukocyte Esterase Negative (Negative) 11/10/23 17:49 11/14/23 14:00 Gram Stain - Final Foot,Left Aerobic and Anaerobic Culture - Preliminary Pin-point growth present, reincubating. 11/10/23 13:25 Aerobic Blood Culture - Final Blood No growth in Aerobic bottle after 5 days. Anaerobic Blood Culture - Final No growth in Anaerobic bottle after 5 days. 11/10/23 13:10 Aerobic Blood Culture - Final Blood No growth in Aerobic bottle after 5 days. Anaerobic Blood Culture - Final 11/10/23 16:08 Gram Stain - Final Foot,Left Wound Culture - Final Pasteurella multocida Escherichia coli 11/17/23 11/17/23 12:18 06:52 POC Glucose 118 H 129 H Electrocardiogram Date: 11/10/23 Findings: + NSR @ (@ 93) Chest X-Ray Date: 11/10/23 Findings: + NAD
[2023-11-17] MEDS ORDERED: ePHEDrine sulfate 50 MG/ML AMP IV PRN (12:35)
[2023-11-17] MEDS ORDERED: ATROPINE SULFATE 0.1 MG/ML 10ML SYR IV PRN (12:35)
[2023-11-17] MEDS ORDERED: MIDAZOLAM HCL 1 MG/ML 2ML VIAL ONE (12:38)
[2023-11-17] MEDS: LACTATED RINGER'S 1,000 ML IV SCH (12:38)
[2023-11-17] MEDS ORDERED: ONDANSETRON INJ 2 MG/ML 2 ML VIAL ONE (12:38)
[2023-11-17] MEDS ORDERED: fentaNYL citrate PF 100 MCG/2 ML VIAL ONE (12:38)
[2023-11-17] MEDS ORDERED: PROPOFOL IV EMULSION 10 MG/ML 20 ML VIAL IV ONE (12:38)
[2023-11-17] MEDS: BUPIVACAINE 0.5 % 5 MG/1 ML MPF 30ML VIAL ONE (13:29)
--- NOTE | 2023-11-17 13:38 | Post Operative Brief Note ---
Immediate Post Op Note v1 Date of Surgery November 17, 2023 Pre & Post Diagnosis Preoperative diagnosis: Left foot Charcot neuroarthropathy; left foot osteomyelitis Postoperative diagnosis: Left foot Charcot neuropathy, no evidence for osteomyelitis I identified the patient and participated in the time-out.: Yes Procedure Left foot incision and drainage with bone biopsy; excision of nonviable bone Surgeon David Renteria DPM Small Battery Plate Assembler None Estimated Blood Loss 10 Findings Consistent with Post-Op Diagnosis No deep extension of infectious burden noted past the dermis. The medial ulceration was the deepest, extending to subcutaneous fat, though an accessory incision was made to obtain nonexposed but involved first metatarsal base. Clinically, this was more consistent with chronic Charcot neuroarthropathy rather than acute osteomyelitis Specimens 1st metatarsal base for pathology Anesthesia Type MAC Complications none Disposition Accompanied Patient To Recovery: Yes Disposition: Recovery Room
--- NOTE | 2023-11-17 14:02 | Anesthesiology Progress Note ---
Date of Service November 17, 2023 Anesthesia Post Procedure Vital Signs Vital Signs: Temp Pulse Pulse Resp BP BP Pulse Ox 11/17/23 13:50 54 L 19 124/75 100 11/17/23 13:41 36.6 C 60 17 111/72 96 11/17/23 12:08 36.5 C 61 20 157/88 H 96 11/17/23 07:55 36.4 C L 61 18 117/75 96 11/16/23 20:18 36.6 C 45 L 16 150/82 H 97 11/16/23 15:24 36.5 C 49 L 18 153/82 H 98 O2 Del Method O2 Flow Rate 11/17/23 13:50 Oxymask 5 11/17/23 13:41 Oxymask 5 11/17/23 12:08 Room Air 11/17/23 07:55 Room Air 11/16/23 20:18 Room Air 11/16/23 15:24 Room Air Pain Intensity Left Foot: Pain Intensity: 2 Transfer of Care Handoff Completed per policy Notes Mental Status: alert / awake / arousable Patient Amnestic to Procedure: Yes Nausea / Vomiting: adequately controlled Pain: adequately controlled Airway Patency, RR, SpO2: stable & adequate BP & HR: stable & adequate Hydration State: stable & adequate Anesthetic Complications: no major complications apparent
[2023-11-17] MEDS: metroNIDAZOLE 500 MG/100 ML BAG IV SCH (14:34)
--- NOTE | 2023-11-17 17:27 | Infectious Disease Progress Nt ---
Date of Service November 17, 2023 Assessment & Plan (1) Diabetes mellitus, type 2: (2) Foot osteomyelitis, left: (3) Lower extremity edema: (4) Diabetic ulcer of right foot: Plan 58yo M with h/o T2DM, Charcot foot, HLD, HTN, peripheral neuropathy, prior toe amputations who was referred to the ED on 11/09 with c/f osteomyelitis. He was seen in the wound clinic on 11/09 and multiple ulcers were noted, with the left foot ulcer noted to be malodorous. He had some amoxicillin from his dentist that he hadnt taken, so he took that for 1 day before coming to the hospital. Of note, he has a dog that licks his legs. Here he has been afebrile, vss. WBC 13. Cr 1.15. AST/ALT wnl. CRP 7.89>9.27. PCT 11.04. UA negative. CXR negative. L foot XR with osteopenia. R foot with changes of Charcot joint, superimposed OM difficult to exclude. MRI of left foot with extensive soft tissue swelli ng/cellulitis, more severe along the medial aspect of the midfoot and plantar region with suggestion of ulceration and tract-like hypointensity; possible early osteomyelitis involving the anterior aspect of the calcaneus and cuboid. ID consulted 11/13. Seen by podiatry 11/13 and deep wcx were sent. He was getting dapto/cefepime which was narrowed to cefepime. S/p OR 11/16 for left foot I+D (per op note, no deep extension of infectious burden noted past the dermis, medial ulceration was the deepest extending to subcutaneous fat, clinically more consistent with chronic Charcot neuroarthropathy rather than OM, incision made to obtain first MT base which was not exposed). Clinically no osteomyelitis noted in the OR but bone biopsy was sent. Will follow up on path results. If osteomyelitis is noted on bone pathology, then will continue current regimen for 6 weeks. If no OM, then he can complete treatment for a SSTI. He is on cefepime for pseudomonal coverage, and unfortunately it was intermediate to fluoroquinolones. Metronidazole added for anaerobes based on 11/13 deep wound cx. # Left diabetic foot infection with possible early OM polymicrobial cx # Charcot foot # T2DM - continue cefepime 2g IV q8h - metronidazole 500mg q8h added today - f/u pathology results of bone biopsy - if osteomyelitis on pathology, then would continue cefepime x 6 weeks and metronidazole x 2 weeks starting day of surgery (11/16) - if no osteomyelitis on pathology, then he can complete cefepime through 11/18 (a 10d total course) and flagyl through 11/20 (a 5 day course) ID will continue to follow. If questions or concerns, contact Infectious Disease Call Center . Marzena Chavez MD [facility], Division of Infectious Diseases [employer]: [phone] Admission and Anticipated Discharge Date Admission Date: November 10, 2023 Subjective This patient recommendation is based on a telemedicine consult request which was completed asynchronously through chart review and information provided by the primary physician. The patient was not seen or examined today. The evaluation is consultative in nature and all patient care and treatment decisions can either be accepted or rejected by the patient's primary hospital-based treating physician using their own independent medical judgment for their patient. Time Spent Reviewing Chart: 31+ minutes Results & Data Vital Signs (Past 12 Hours) Vital Signs Temp Pulse Pulse Pulse Resp BP BP 11/17/23 17:18 36.5 C 79 18 162/77 H 11/17/23 16:24 36.4 C L 51 L 18 154/83 H 11/17/23 15:15 36.4 C L 53 L 18 147/78 H 11/17/23 14:45 36.4 C L 54 L 18 150/83 H 11/17/23 14:27 36.6 C 50 L 16 156/83 H 11/17/23 14:00 36.5 C 58 L 17 130/74 11/17/23 13:50 54 L 19 124/75 11/17/23 13:41 36.6 C 60 17 111/72 11/17/23 12:08 36.5 C 61 20 157/88 H 11/17/23 07:55 36.4 C L 61 18 117/75 Pulse Ox O2 Del Method O2 Flow Rate 11/17/23 17:18 98 Room Air 11/17/23 16:24 96 Room Air 11/17/23 15:15 97 Room Air 11/17/23 14:45 95 Room Air 11/17/23 14:27 99 Nasal Cannula 2 11/17/23 14:00 100 Nasal Cannula 4 11/17/23 13:50 100 Oxymask 5 11/17/23 13:41 96 Oxymask 5 11/17/23 12:08 96 Room Air 11/17/23 07:55 96 Room Air (1) Diabetes mellitus, type 2 Diabetes mellitus intermediate frame tender insulin use: without usp use Diabetes mellitus complication status: with skin complications Diabetes mellitus complication detail: with foot ulcer Qualified Code(s): E11.621 - Type 2 diabetes mellitus with foot ulcer; L97.509 - Non-pressure chronic ulcer of other part of unspecified foot with unspecified severity (4) Diabetic ulcer of right foot Diabetic foot ulcer location: midfoot Diabetes mellitus type: type 2 Non- pressure ulcer stage: with fat layer exposed Qualified Code(s): E11.621 - Type 2 diabetes mellitus with foot ulcer; L97.412 - Non-pressure chronic ulcer of right heel and midfoot with fat layer exposed
[2023-11-18 06:22] LABS: Basophils # (auto) 0.06 K/uL (0.00-0.20); Basophils % (auto) 0.7 %; Eosinophils % (auto) 2.3 %; Hematocrit (blood only) 36.4 % (42.0-52.0); Hemoglobin 12.1 g/dl (14.0-18.0); Immature Granulocytes # (auto) 0.06 K/uL (0.01-0.20); Immature Granulocytes % (auto) 0.7 %; Lymphocytes # (auto) 1.27 K/uL (1.20-3.40); Lymphocytes % (auto) 14.4 %; Mean Corpuscular Hemoglobin 29.1 pg (25.0-34.0); Mean Corpuscular Hgb Conc 33.2 g/dL (32.0-36.0); Mean Corpuscular Volume 87.5 fL (80.0-100.0); Mean Platelet Volume 11.3 fL (9.4-12.4); Monocytes # (auto) 0.57 K/uL (0.11-0.59); Monocytes % (auto) 6.4 %; Neutrophils # (auto) 6.68 K/uL (1.40-6.50); Neutrophils % (auto) 75.5 %; Platelet Count 188 K/uL (130-400); RDW Coefficient of Variation 13.1 % (11.5-14.5); RDW Standard Deviation 41.3 fL (36.4-46.3); Red Blood Count 4.16 M/uL (4.70-6.10); White Blood Count 8.84 K/ul (4.8-10.8)
[2023-11-18 06:42] LABS: BUN Creatinine Ratio 25.2 (10-20); Calcium 8.7 mg/dl (8.6-10.3); Creatinine Clr Calc Pharmacy 102.4 ml/min; Est GFR (African American) 85.6 ml/min; Est GFR (Non-African American) 73.8 ml/min; Potassium 4.3 mmol/L (3.5-5.1)
--- NOTE | 2023-11-18 12:15 | Hospitalist Progress Note ---
Date of Service November 18, 2023 Assessment & Plan (1) Foot osteomyelitis, left: Plan: No overt osteomyelitis seen at the time of surgery yesterday, November 16. Bone pathology report remains pending. He remains on cefepime day 9, and Flagyl day 2. Cultures have grown E. coli, Klebsiella, Pasteurella, Enterobacter, Pseudomonas, and prevocalic. Appreciate infectious disease consultation and recommendations. Podiatry consultation noted. (2) Diabetes mellitus, type 2: Plan: ADA diet. He denies use of basal insulin therapy and usually takes metformin, which is currently on hold. Sliding scale coverage as needed. Controlled (3) Hypertension: Plan: Stable. Continue valsartan (4) Hyperlipidemia: Plan: Stable. Continue statin therapy Plan He will be discharged home after discharge clearance by podiatry. He may need ongoing IV antibiotics at the time of discharge. Await pathology report. Admission and Anticipated Discharge Date Admission Date: November 10, 2023 Subjective Alert and oriented. No distress. Postoperative day #1 after left foot surgery. No overt osteomyelitis seen. Bone pathology report remains pending. He remains on cefepime and Flagyl. Glucose 122 this morning, November 17 Review of Systems 2 Review of Systems: Constitutional-no fever or chills ENT-no blurred vision, no double vision, no epistaxis, no sore throat Respiratory-no cough, no wheezing, no shortness of breath Cardiac-no palpitations, no chest pain, no syncope GI-no nausea, vomiting, diarrhea, melena, hematochezia -no urinary retention, no urinary incontinence, no dysuria, no hematuria Musculoskeletal-bilateral foot deformities with left foot swelling/tenderness/erythema Skin-no bruising, no rashes, no pruritus Neuro-no isolated weakness, no paresthesia Psych-no depression, no anxiety Physical Exam 2 Physical Exam: General-alert and oriented x3, no fever, no chills HEENT-head atraumatic and normocephalic, pupils equal and reactive to light, extraocular muscles intact Neck-no lymphadenopathy or thyromegaly, trachea midline Chest-clear to auscultation. No rales, wheezing or rhonchi Cardiac-regular rate and rhythm, normal S1 and S2 Abdomen-normal bowel sounds, no hepatosplenomegaly Extremities-bilateral Charcot foot deformities. Both feet are currently heavily bandaged Neuro-cranial nerves II through XII intact, motor and sensory function within normal limits, strength symmetrical, no focal deficits Psych-normal affect, normal mood Results & Data Results & Data Vital Signs (Past 12 Hours) Vital Signs Temp Pulse Resp BP Pulse Ox O2 Del Method 11/18/23 11:15 36.6 C 72 16 131/72 96 Room Air 11/18/23 07:44 36.8 C 64 16 121/72 97 Room Air 11/18/23 03:30 36.7 C 58 L 16 123/63 97 Room Air Laboratory Results 11/18/23 05:42 11/18/23 05:42 PG Care Time/CCT Total # of Minutes Spent Total Time Spent with Patient: Total time spent is greater than 50% in coordination of care (as documented) at patient's floor/unit and/or counseling patient: Coding Level of Care Code 94581 SUB INP/OBS CARE 2/35MIN Diagnoses Foot osteomyelitis, left M86.9 Type 2 diabetes mellitus with foot ulcer, without long-term current use of insulin E11.621; L97.509 Diabetes mellitus intermodal customer service insulin use: without intermodal customer service use Diabetes mellitus complication status: with skin complications Diabetes mellitus complication detail: with foot ulcer Hypertension I10 Hyperlipidemia E78.5 (2) Diabetes mellitus, type 2 Diabetes mellitus mcfp insulin use: without mcfp use Diabetes mellitus complication status: with skin complications Diabetes mellitus complication detail: with foot ulcer Qualified Code(s): E11.621 - Type 2 diabetes mellitus with foot ulcer; L97.509 - Non-pressure chronic ulcer of other part of unspecified foot with unspecified severity
[2023-11-19 06:51] LABS: Basophils # (auto) 0.07 K/uL (0.00-0.20); Basophils % (auto) 0.9 %; Eosinophils # (auto) 0.23 K/uL (0.00-0.50); Eosinophils % (auto) 2.9 %; Hemoglobin 12.6 g/dl (14.0-18.0); Immature Granulocytes # (auto) 0.09 K/uL (0.01-0.20); Immature Granulocytes % (auto) 1.1 %; Lymphocytes # (auto) 1.36 K/uL (1.20-3.40); Lymphocytes % (auto) 17.3 %; Mean Corpuscular Hgb Conc 33.2 g/dL (32.0-36.0); Mean Corpuscular Volume 87.4 fL (80.0-100.0); Mean Platelet Volume 11.6 fL (9.4-12.4); Monocytes # (auto) 0.52 K/uL (0.11-0.59); Monocytes % (auto) 6.6 %; Neutrophils # (auto) 5.59 K/uL (1.40-6.50); Neutrophils % (auto) 71.2 %; Platelet Count 204 K/uL (130-400); RDW Coefficient of Variation 13.2 % (11.5-14.5); RDW Standard Deviation 41.7 fL (36.4-46.3); Red Blood Count 4.35 M/uL (4.70-6.10); White Blood Count 7.86 K/ul (4.8-10.8)
[2023-11-19 08:02] LABS: BUN Creatinine Ratio 25.5 (10-20); Calcium 9.1 mg/dl (8.6-10.3); Creatinine Clr Calc Pharmacy 111.5 ml/min; Est GFR (African American) 94.8 ml/min; Est GFR (Non-African American) 81.8 ml/min; Potassium 4.3 mmol/L (3.5-5.1)
--- NOTE | 2023-11-19 10:04 | Podiatry Progress Note ---
Date of Service November 19, 2023 Assessment & Plan (1) Osteomyelitis: (2) Diabetes mellitus, type 2: (3) Abnormal ankle brachial index (HOMA): (4) Diabetic ulcer of right foot: (5) Diabetic ulcer of left foot: (6) Charcot's joint of foot in type 2 diabetes mellitus: Plan Patient examined and evaluated. - Bandage changed consisting of aquacel ag, 4x4 gauze, and RODOLFO bandage - No obvious underlying osteomyelitis noted on surgical debridement. Nutrition Coordinator bone samples were sent for pathology. - Will defer antibiosis suggestions to infectious disease, however, he may benefit from 2 weeks of oral antibiotics rather than 2 months of IV antibiotics based on lack of evidence for osteomyelitis. Currently this includes both the MRI, being more suggestive of Charcot deformity, and the surgical results - Will continue to follow, though patient can likely be discharged home once antibiotic plan is finalized. Admission and Anticipated Discharge Date Admission Date: November 10, 2023 Subjective Patient seen at bedside 2 days status post left foot I&D with bone biopsy. Doing well, no new concerns. Is anxious to get home whenever possible. Review of Systems Constitutional: + fever, + chills, + fatigue and + malai se Eyes: no problem reported Ear, Nose, Mouth, Throat: no problem reported Respiratory: no problem reported Cardiovascular: + edema; no problem reported Gastrointestinal: no nausea, no vomiting and no problem reported Musculoskeletal: no problem reported Integumentary: + skin ulcer, + wounds and + erythema Neurologic: + loss of sensation, + numbness and + pa resthesia; no generalized weakness Psychiatric: no problem reported Physical Exam Physical Exam: Sutures are intact to the left foot surgical site with no current bleeding noted to either this biopsy site or the plantar ulcerations. No bleeding or drainage noted to the right foot plantar foot ulceration as well. Edema and erythema are improved since surgical intervention. Constitutional: WD/WN, vitals as above + ill appearing and + obese Eyes: PERRL, conjunctivae normal, anicteric sclerae ENMT: external ear and nose normal, oropharynx normal Neck: trachea midline, no thyromegaly normal visual inspection Respiratory: normal respiratory effort; no respiratory distress Cardiovascular: Rate/Rhythm: regular rate and regular rhythm Chest (Breasts): Chest: normal inspection of chest Gastrointestinal (Abdomen): Inspection/Auscultation: abdomen normal to inspection Percussion/Palpation: + abdomen tender and abdomen soft Musculoskeletal: no cyanosis or clubbing, extremities motor strength 5/5 Head/Neck/Chest: normocephalic and head atraumatic Extremities: extremities normal to inspection and + foot abnormality (rigid Charcot collapse is noted bilateral midfoot, worse on the left.) Gait: + limp Skin: + ulcer, + wound, + skin atrophy and + e rythema Neurologic: awake; no focal motor deficits Psychiatric: A+Ox3, euthymic affect Results & Data Results & Data Vital Signs (Past 12 Hours) Vital Signs Temp Pulse Resp BP Pulse Ox O2 Del Method 11/19/23 07:28 36.6 C 57 L 17 132/80 98 Room Air (1) Osteomyelitis Laterality: unspecified laterality Osteomyelitis location: foot Osteomyelitis type: unspecified type Qualified Code(s): M86.9 - Osteomyelitis, unspecified (2) Diabetes mellitus, type 2 Diabetes mellitus complication detail: with foot ulcer Diabetes mellitus complication status: with skin complications Diabetes mellitus shelter insulin use: without shelter use Qualified Code(s): E11.621 - Type 2 diabetes mellitus with foot ulcer; L97.509 - Non-pressure chronic ulcer of other part of unspecified foot with unspecified severity (4) Diabetic ulcer of right foot Diabetes mellitus type: type 2 Diabetic foot ulcer location: midfoot Non- pressure ulcer stage: with fat layer exposed Qualified Code(s): E11.621 - Type 2 diabetes mellitus with foot ulcer; L97.412 - Non-pressure chronic ulcer of right heel and midfoot with fat layer exposed (5) Diabetic ulcer of left foot Diabetes mellitus type: type 2 Diabetic foot ulcer location: midfoot Non- pressure ulcer stage: with fat layer exposed Qualified Code(s): E11.621 - Type 2 diabetes mellitus with foot ulcer; L97.422 - Non-pressure chronic ulcer of left heel and midfoot with fat layer exposed
--- NOTE | 2023-11-19 12:17 | Discharge Summary ---
Date of Service November 19, 2023 Admission HPI Per Admitting Provider Kirk is a 58-year-old male with a history of Charcot foot and type 2 diabetes mellitus, of lipidemia, hypertension, and diabetic neuropathy who presents on referral for wound care for suspected underlying osteomyelitis. MRI was ordered as outpatient. Left foot plantar ulceration with erythema, serous drainage, and malodorous. Patient additionally with left lower leg ulceration, and a right plantar ulceration with erythema and drainage. Kirk is seen at the bedside. He reports he was referred from wound care clinic who was worried about a bone infection in his left foot. He reports his right foot also has an ulcer but this does not hurt and feels "okay ". He did have some chills this morning. Denies fever. No chest pain, shortness of breath, presyncope, syncope. Reports he does have pain and swelling at the left foot. This has had malodorous discharge per wound care. Patient has been referred to [facility] Foot/Ankle, Dr. Kay as an outpatient and has not yet seen this provider. He reports he saw an orthopedist in [place] who performed toe amputations, but does not remember which hospital or who did this and has not followed up recently. Denies history of resistant infections. 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 He did take his medications including his insulin this morning. Denies history of heart failure, heart attack, DC, CHF.. Denies history of bleeding. Medical History: Reviewed Medications: Reviewed Surgical History: Reviewed Family history: Reviewed Allergies: Reviewed Social History: Reviewed Code Status: Full Principal Diagnosis Bilateral foot cellulitis Discharge Exam General-alert and oriented x3, no fever, no chills HEENT-head atraumatic and normocephalic, pupils equal and reactive to light, extraocular muscles intact Neck-no lymphadenopathy or thyromegaly, trachea midline Chest-clear to auscultation. No rales, wheezing or rhonchi Cardiac-regular rate and rhythm, normal S1 and S2 Abdomen-normal bowel sounds, no hepatosplenomegaly Extremities-bilateral Charcot foot deformities. Both feet are currently heavily bandaged Neuro-cranial nerves II through XII intact, motor and sensory function within normal limits, strength symmetrical, no focal deficits Psych-normal affect, normal mood Discharge Data Allergies Allergy/AdvReac Type Severity Reaction Status Date / Time lisinopril AdvReac Mild Cough Verified 11/10/23 10:00 Consultations 11/10/23 14:11 ED Decision to Admit Stat 11/12/23 10:28 Consult Infectious Diseases Routine 11/14/23 07:24 Consult Podiatry Routine 11/14/23 12:38 Consult Vascular Surgery Routine Procedures Performed Operation Date: 11/17/23 12:45 Actual Procedures p Left Foot Incision and Drainage with Bone Biopsy(Left) - David Renteria DPM Ordered Studies 11/10/23 15:36 MR foot LT wo/w con Urgent 11/15/23 22:13 US arterial duplex LE BI Routine Hospital Course (1) Foot osteomyelitis, left: No overt osteomyelitis seen at the time of surgery on November 16. Bone pathology report remains pending. He has been treated with cefepime day 10, and Flagyl day 3. Cultures have grown E. coli, Klebsiella, Pasteurella, Enterobacter, Pseudomonas, and prevocalic. Appreciate infectious disease consultation and recommendations. Podiatry consultation noted. He will be discharged home today on oral ciprofloxacin and Flagyl. He will follow-up with his PCP and scientific database curator to review the pathology report when it is available. (2) Diabetes mellitus, type 2: ADA diet. He denies use of basal insulin therapy and usually takes metformin, which is currently on hold. Metformin will be restarted at discharge sliding scale coverage as needed. Controlled (3) Hypertension: Stable. Continue valsartan (4) Hyperlipidemia: Stable. Continue statin therapy Plan Home today, November 18, Ciprofloxacin and Flagyl. Follow-up with PCP and scientific database curator within 1 week. Total Time Total Time Spent Total Time Spent (In Minutes): 45 minutes Discharge Plan Discharge Items Patient Disposition: Home - Self-Care Reason For Visit: SUSPECTED OSTEOMYELITIS L FOOT Discharge Diagnosis: Bilateral foot cellulitis Activity: As commented below Activity Comment: Ambulatory limitations per podiatry Non-emergency contact: Primary Care Provider and Surgeon Call non-emergency contact if: you have any medication questions Follow-up/Referrals: Rachel Kilpatrick CRNP [Primary Care Provider] - Diet: Carb Consistent or DM2 Addtl Attending Provider Instructions: Prescriptions for Cipro antibiotic and metronidazole antibiotic have been [facility] [address] [facility] Pending Studies at Discharge: Yes Studies:: Pathology report from foot surgery Stand-Alone Forms: My [facility], Smoking Cessation Medications and DC Order Prescriptions: New ciprofloxacin HCl [Cipro] 500 mg tablet 500 mg PO BID Qty: 20 0RF metronidazole 500 mg tablet 500 mg PO TID Qty: 30 0RF Continued valsartan 40 mg tablet 40 mg PO QAM Qty: 90 3RF metformin 500 mg tablet 500 mg PO BID Qty: 180 3RF simvastatin 20 mg tablet 20 mg PO QPM Qty: 90 3RF cholecalciferol (vitamin D3) 3,000 units PO QAM (DME) FreeStyle Mannie 3 Sensor Device See Rx Instructions .Route Qty: 6 2RF Rx Instructions: As directed cyanocobalamin (vitamin B-12) 500 mcg tablet 500 mcg PO QAM Rx Instructions: rosina addison. (DME) pen needle, diabetic [Sure-Fine Pen Webster] 31 gauge x 5/16" needle See Dose Instructions .ROUTE .MEDSUPPLY Qty: 200 5RF Dose Instruction: As directed Rx Instructions: use up to 4 times daily as directed by insulin glargine [Lantus Solostar U-100 Insulin] 100 unit/mL (3 mL) insulin pen 30 unit SQ QAM multivitamin Tablet 1 tab PO QAM (DME) One Touch Test Strip MISCELLANEOUS Rx Instructions: as directed, qid Ozempic 0.25 mg or 0.5 mg (2 mg/3 mL) pen injector 0.5 mg subcut UD Rx Instructions: 0.25 mg subcutaneously weekly x 4 weeks, then increase to 0.5mg weekly; Vitamin C 1 tab PO QAM Rx Instructions: unsure of strength dapagliflozin propanediol [Farxiga] 10 mg tablet 10 mg PO QAM Discontinued amoxicillin 875 mg tablet 875 mg PO BID Discharge Orders: Discharge Order (Routine); Ordered 11/19/23 Ordered By: Maico Morales/Other Patient Handouts: Nutrition for Wound Healing, Managing Type 2 Diabetes Admission Data Admit Date/Time: 11/10/23 17:56 Attending Provider: Maico Hoffamn Admit Provider: Kalia Wallis Primary Care Provider: Rachel Kilpatrick Other Providers: Abraham,Fax; Kalia Wallis; Iris Pete; Chiara Woodruff; Marzena Chavez; Paulina Nunez; Roma Leone; Uyen Navarro; David Renteria; Pedro Boone Coding Level of Care Code 49985 INP/OBS DISCH >30 MIN Diagnoses Foot osteomyelitis, left M86.9 Type 2 diabetes mellitus with foot ulcer, without long-term current use of insulin E11.621; 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
--- NOTE | 2023-11-26 22:36 | Operative Report ---
Post Operative Report Pre & Post Diagnosis Operation Date: 11/17/23 12:45 Pre-Op Diagnosis: Diabetic ulcer of left foot, Suspected Osteomyelitis of Left Foot Post-Op Diagnosis: Diabetic ulcer of left foot, Suspected Osteomyelitis of Left Foot I identified the patient and participated in the time-out.: Yes Procedure Operation Date: 11/17/23 12:45 Actual Procedures p Left Foot Incision and Drainage with Bone Biopsy(Left) - David Renteria DPM Surgeon David Renteria DPM Link Assembler None Estimated Blood Loss 10 Findings Consistent with Post-Op Diagnosis no significant underlying osteomyelitis is suspected. The ulceration was more superficial than anticipated with one deeper tunneling location along the medial foot. Even so, at this deeper location did not penetrate to bone. Specimens territory sales representative samples were sent for pathology testing. Because this bone was firm, stable, and clinically healthy aside from the Charcot deformity, no culture and sensitivity specimens were obtained. Anesthesia Type MAC Complications none Disposition Accompanied Patient To Recovery: Yes Indications Mr. Regan is a recent hospital consult of ours who presented with bilateral Charcot foot deformity and worsening ulceration to both feet. His left foot was suspected to have underlying osteomyelitis due to the deep probing and local signs and symptoms of infection. The right foot wound was more superficial on presentation with no evidence of infection. We did discuss that the best way to assess for the level of bone involvement would be surgical debridement with bone biopsy. Preoperative instructions, postoperative instructions, relative risks, and outcomes were all discussed. We did discuss that this procedure would not be the definitive surgical or mention that would help determine further care. Patient understands and consent was obtained for this procedure. Description of Procedure the patient was brought to the operating room and placed on the operating table in the supine position. Following initiation of IV sedation, local analgesia was obtained utilizing 20 cc of half percent Marcaine plain in a local block f ashion. The left lower extremity was scrubbed, prepped, and draped in the usual aseptic technique. No tourniquet was utilized during this procedure due to his concerning vascular status. Attention was directed to the plantar aspect of the left foot where the large plantar ulceration was noted. This ulceration was sharply debrided utilizing a 15 blade and curette. The fibrotic wound bed was able to be converted to granular tissue. Overall, the ulceration measured 4 x 4 cm underlying the midfoot. The wound bed was now clean and granular with no undermining of the wound edges. No deep purulent drainage was noted, though a small area of tunneling was noted along the medial aspect of this ulcer. This did probe medially, nearly to the medial cuneiform and first metatarsal though not to the bone. This did probe only to the deep soft tissue. This ulceration was flushed with copious amounts of sterile saline. Because no bone involvement was identified directly through the ulceration, a 3 cm incision was made along the largest area of bony prominence on the medial plantar midfoot. This was performed to gain access to the affected bone to obtain a bone biopsy specimen. the incision was carried down to the level of the bone utilizing sharp dissection techniques. Care was taken to retract any vital neurovascular structures as well as cauterize and ligate any superficial bleedi ng vessels. This bone biopsy was obtained utilizing accommodation of curette and rongeur. The site was then again flushed with copious months of sterile saline and dressed with iodoform packing to the plantar tunneling ulceration and Xeroform gauze to the remainder of the ulcerations. the medial incision was closed utilizing 2-0 nylon in a simple interrupted fashion. The lower extremity was then dressed with 4 x 4 gauze, ABD, Kerlix, and Yosi wrap. The patient tolerated the procedure well and was transferred to the cart with vital signs stable and vascular status intact to the feet. I attest to the content of the Intraoperative Record and any orders documented therein. Any exceptions are noted below.
--- NOTE | 2023-11-28 12:04 | Coding Query ---
DEBRIDEMENT DOCUMENTATION To promote full compliance with coding requirements relating to patient care, physician participation is requested in all cases of pressurizer uncertainty. Please assist us with the question(s) below: Clinical Indicator(s): Operative Note: * Attention was directed to the plantar aspect of the left foot where the large plantar ulceration was noted. This ulceration was sharply debrided utilizing a 15 blade and curette. The fibrotic wound bed was able to be converted to granular tissue. Overall, the ulceration measured 4 x 4 cm underlying the midfoot. The wound bed was now clean and granular with no undermining of the wound edges. No deep purulent drainage was noted, though a small area of tunneling was noted along the medial aspect of this ulcer. This did probe medially, nearly to the medial cuneiform and first metatarsal though not to the bone. This did probe only to the deep soft tissue. This ulceration was flushed with copious amounts of sterile saline. Please place an X in the parenthesis (x). If other, please document the finding: Type of Debridement: (X) Excisional Debridement- Cutting away necrotic, devitalized tissue or slough to the level of viable tissue using a sharp instrument (i.e. scalpel, scissors, etc.) ( ) Non Excisional Debridement- The removal of necrotic, devitalized tissue or slough by means of scraping, mechanical brushing, flushing, or washing (i.e. irrigation,whirlpool);minor removal of loose fragments. ( ) Other (please specify): Depth of Debridement: ( ) Skin ( ) Skin and Subcutaneous Tissue ( ) Skin, Subcutaneous Tissue and Muscle (X) Skin, Subcutaneous Tissue, Muscle and Bone ( ) Other (please specify): Thank you Anastasia RODRIGUEZ
== END 2023-11-19 13:56 | disposition home or self-care (01) | DRG 629 ==
LOC: SUATTDRO → ED 12:18 → EDINP 17:56 → SUATTDRO 17:56 → 3N 20:40